=== PATIENT | female | born 1965 | race Caucasian/White ===

== ENCOUNTER → 2019-04-10 15:50 | Outpatient (BNVA) | payer MEDICAID, SELFPAY | PROVIDERS: Family Provider Family Medicine; PCP Family Medicine; Visit Provider Psychiatry & Neurology Psychiatry | DX: F60.3 Borderline personality disorder (principal); F43.12 Post-traumatic stress disorder, chronic; F33.2 Major depressive disorder, recurrent severe without psychotic features | CPT/HCPCS: 99213 ==

== ENCOUNTER → 2019-05-10 14:49 | Outpatient (BNVA) | payer MEDICAID, SELFPAY | PROVIDERS: Family Provider Family Medicine; PCP Family Medicine; Visit Provider Social Worker | DX: F33.2 Major depressive disorder, recurrent severe without psychotic features (principal); F43.12 Post-traumatic stress disorder, chronic; F60.3 Borderline personality disorder | CPT/HCPCS: 90834 ==

== ENCOUNTER → 2019-05-24 15:43 | Outpatient (BNVA) | payer MEDICAID, SELFPAY | PROVIDERS: Family Provider Family Medicine; PCP Family Medicine; Visit Provider Social Worker | DX: F33.2 Major depressive disorder, recurrent severe without psychotic features (principal); F43.12 Post-traumatic stress disorder, chronic; F60.3 Borderline personality disorder | CPT/HCPCS: 90834 ==

== ENCOUNTER → 2019-05-31 14:42 | Outpatient (BNVA) | payer MEDICAID, SELFPAY | PROVIDERS: Family Provider Family Medicine; PCP Family Medicine; Visit Provider Social Worker | DX: F33.2 Major depressive disorder, recurrent severe without psychotic features (principal); F43.12 Post-traumatic stress disorder, chronic; F60.3 Borderline personality disorder | CPT/HCPCS: 90834 ==

== ENCOUNTER → 2019-07-02 15:25 | Outpatient (BNVA) | payer MEDICAID, SELFPAY | PROVIDERS: Family Provider Family Medicine; PCP Family Medicine; Visit Provider Social Worker | DX: F33.2 Major depressive disorder, recurrent severe without psychotic features (principal); F60.3 Borderline personality disorder; F43.12 Post-traumatic stress disorder, chronic | CPT/HCPCS: 90834 ==

== ENCOUNTER → 2019-07-03 16:04 | Outpatient (BNVA) | payer MEDICAID, SELFPAY | PROVIDERS: Family Provider Family Medicine; PCP Family Medicine; Visit Provider Psychiatry & Neurology Psychiatry | DX: F43.12 Post-traumatic stress disorder, chronic (principal); F60.3 Borderline personality disorder; F33.2 Major depressive disorder, recurrent severe without psychotic features | CPT/HCPCS: 99213 ==

== ENCOUNTER 2019-07-11 07:48 | Emergency (ER) | payer MEDICAID, SELFPAY ==
[2019-07-11 07:56] VITALS: BP 119/80; PULSE 67; RESP 16; TEMP 36.9; O2SAT 97; BMI 31.7
[2019-07-11 07:58] VITALS: BP 131/83; PULSE 69
--- NOTE | 2019-07-11 07:59 | ED_ITS ---
Documented by User: MAI Becerra 07/11/19 11:44 HPI - General Adult General: Chief complaint: General Medical Stated complaint: LOW BLOOD PRESSURE Time Seen by Provider: 07/11/19 07:58 History of Present Illness: HPI narrative: Patient is a 53-year-old female who comes to the ED with low blood pressure. Patient states that yesterday she started feeling a little lightheaded and generalized weakness. She checked her blood pressure and her first reading was 98/50. She checked it again a little bit later and she said it dropped down to 88/50. Patient says she was having some chest pain as well. Chest pain started while patient was up sweeping the floor. She said the chest pain went away after she sat down. Today patient woke up and felt little weak but did not check her blood pressure at home. She described feeling like she was going to pass out . When she sat down the symptoms did not improve. She decided to come to the ED to get evaluated because in the past when she has had some of the symptoms was related to having low potassium. She has not had any chest pain today. Denies any fever, shortness of breath, chest pain, abdominal pain, nausea, vomiting, diarrhea, dysuria, hematuria, blood in the stool Associated symptoms: Reports chest pain (yesterday); Deny dyspnea, headache(s), nausea, rash, palpitations or vomiting Review of Systems Const: Reports: fatigue (generalized weakness); Denies: fever or chills Eyes: Denies: change in vision or eye discomfort ENMT: Denies: throat pain, painful swallowing, nasal discharge or nasal congestion Card: Reports: chest pain (yesterday), lightheadedness and pre-syncope; Denies: palpitations, edema, swelling of feet/ankles, shortness of breath on exertion or shortness of breath when lying down Resp: Denies: shortness of breath, productive cough or non-productive cough GI: Denies: abdominal pain, nausea, vomiting, diarrhea, constipation or blood in stool : Denies: flank pain, painful urination or blood in urine Musc: Reports: back pain (chronic issue-she sees pain management.); Denies: neck pain or extremity swelling Skin/Breast: Denies: rash or new lesion Neuro: Denies: headache, numbness in extremities or weakness in extremities PFSH ED PFSH: Medical History Sleep apnea with use of continuous positive airway pressure (CPAP) Surgical History History of appendectomy Tubal ligation status Social History Smoking and tobacco status: never smoked Second hand smoke exposure: No Alcohol intake: never Physical Exam Const: COMMON NORMALS: no apparent distress, oriented x3 and alert GENERAL APPEARANCE: cooperative, comfortable and well kempt HENMT: COMMON NORMALS: normocephalic HEAD & SCALP: normocephalic MOUTH: oral and palatal mucosa normal THROAT: posterior oropharynx normal and uvula midline Eye: COMMON NORMALS: PERRL GENERAL EYE: normal appearance of both eyes PUPIL: Yes PERRL Neck/C-Spine: COMMON NORMALS: supple GENERAL: Yes normal visual inspection Lymph: LYMPHATIC: no lymphadenopathy noted (no cervical lymphadenopathy palpated.) Resp: COMMON NORMALS: normal respiratory effort, no retractions, no use of accessory muscles and clear to auscultation bilaterally EFFORT & INSPECTION: Yes able to speak in complete sentences, No respiratory distress and No labored AUSCULTATION: clear to auscultation bilaterally Cardio: COMMON NORMALS: regular rate, regular rhythm, S1 normal heart sound, S2 normal heart sound, no gallops, no clicks, no murmurs and peripheral pulses 2+ throughout RATE: regular rate RHYTHM: regular rhythm HEART SOUNDS: S1 normal and S2 normal PERIPHERAL PULSES: pulses 2+ throughout GI: COMMON NORMALS: normal to inspection, nondistended, normoactive bowel sounds, soft to palpation, non-tender and no masses PALPATION: Yes soft : COMMON NORMALS: Yes no CVA tenderness BLADDER/KIDNEY EXAM: Yes no CVA tenderness Back/Pelvis: COMMON NORMALS: no CVA tenderness Extremity: COMMON NORMALS: normal to inspection Neuro: COMMON NORMALS: oriented x3 and moves all extremities SENSORIUM/ORIENTATION: Yes alert Psych: APPEARANCE: Yes well kempt Skin: COMMON NORMALS: no rashes or lesions noted GENERAL SKIN EXAM: no rashes or lesions noted and dry skin Course ED course: HEART Score-2 Reevaluation(s): Reevaluation #1: I went to check on patient and to update her on lab results. Patient told me she had a headache but I told her that I could give her some Toradol to help with headache. She agreed and would like some Toradol for her headache. Time: 09:13 Vital Signs: Vital signs: Vital Signs Temperature 98.4 F 07/11/19 07:56 Pulse Rate 61 07/11/19 10:56 Respiratory Rate 16 07/11/19 10:56 Blood Pressure 131/84 07/11/19 10:56 Pulse Oximetry 99 07/11/19 10:56 MDM - General Adult MDM Narrative: Medical decision making narrative: Patient is a 53-year-old female who comes into the ED with low blood pressure, weakness and chest pain. Symptoms started yesterday. Chest pain started yesterday while she was being active sweeping her house but resolved when she sat down. She has not had any chest pain since yesterday. Patient talked to her PCP yesterday and told her to start taking half of her dose of spironolactone daily. She took a half dose of her spironolactone today. While here in the ED her blood pressure was 119/80 pulse 67. EKG showed normal sinus rhythm and troponins were negative. Heart score- 2. CBC and CMP were normal. Patient was given IV fluids and Toradol for headache while here in the ED. Her blood pressure increased after IV fluids to 131/84 pulse 61. Patient was discharged and told to follow-up with her PCP in 5 to 7 days. She was told to continue taking the half dose of spironolactone as ordered by her PCP. I told her she can return to the ED if she has any worsening symptoms or any chest pain. Patient agreed with and understood plan. Lab Data: Attestation: I reviewed the patient's lab results. Labs: Lab Results 07/11/19 07/11/19 07/11/19 Range/Units 08:10 08:10 08:10 WBC 5.9 (4.0-10.0) 10^3/ uL RBC 4.51 (4.1-5.3) 10^6/u L Hgb 13.2 (11.5-15.3) g/dL Hct 41.1 (37.0-47.0) % MCV 91.1 (81-99) fL MCH 29.3 (28.0-34.0) pg MCHC 32.1 (30.0-36.0) g/dL RDW 12.8 (12.1-15.1) % Plt Count 298 (130-400) 10^3/c mm MPV 9.6 (7.4-10.4) fL Neut % (Auto) 40.9 % Lymph % (Auto) 40.9 % Weld % (Auto) 7.3 % Eos % (Auto) 9.7 % Baso % (Auto) 1.0 % Neut # (Auto) 2.4 (1.8-7.7) 10^3/u L Lymph # (Auto) 2.4 (0.8-4.8) 10^3/u L Weld # (Auto) 0.4 (0.2-0.9) 10^3/u L Eos # (Auto) 0.6 (0.0-0.8) 10^3/u L Baso # (Auto) 0.1 (0.0-0.1) 10^3/u L Nucleated RBC % (a uto) 0 % Nucleated RBCs # 0.0 /100WBC Sodium 139 (136-145) mmol/L Potassium 3.7 (3.5-5.1) mmol/L Chloride 104 (98-107) mmol/L Carbon Dioxide 24 (22-29) mmol/L Anion Gap 14.7 (5-19) BUN 15 (6-20) mg/dL Creatinine 0.9 (0.5-0.9) mg/dL GFR Calculation 65.8 L (90-130) mL/min Glucose 90 (65-115) mg/dL Calculated Osmolal ity 284 L (285-295) mOsm/k g Calcium 9.9 (8.5-10.5) mg/dL Total Bilirubin 0.4 (0.15-1.2) mg/dL AST 14 (0-32) U/L ALT 13 (0-33) U/L Alkaline Phosphata se 117 H (35-105) IU/L Troponin T Baselin e 8 (0-10) ng/mL Total Protein 7.0 (6.6-8.7) g/dL Albumin 4.2 (3.5-5.2) g/dL Globulin 2.8 (1.3-4.6) g/dL Imaging Data^: CXR: Attestation: I personally reviewed and interpreted this imaging study as follows: Radiologist's impression: [address] [address] XRay Report Signed Patient: Gold Johnson Unit #: [id number] : 1965 Age/Sex: 53 / F ADM Date: 07/11/19 Loc: ER Room/Bed: Attending Dr: Ordering Provider/Ordering MD: Reese Hernandez Date of Service: 07/11/19 Procedure(s): XR chest 1V portable [id number] Accession Number(s): [id number] Report Number: [id number] WS: [id number] CHEST XRAY TECHNIQUE: Portable chest. CLINICAL INFORMATION: cp and weakness COMPARISON: October 03, 2018 FINDINGS: Shallow inspiration. Heart: Normal cardiac silhouette. Lungs: Elevation right hemidiaphragm. Subsegmental atelectasis right lung base. Left lung is well aerated. No acute-appearing pulmonary infiltrates. Bones: Hypertrophic changes thoracic spine. XR/XR chest 1V portable [id number] IMPRESSION: Elevation hemidiaphragm with subsegmental atelectasis right lung base is unchanged. Dictated By: Ford Apodaca MD Signed By: Ford Apodaca MD Signed Date/Time: 07/11/19848 DD/ 0848 EKG Data^: EKG 1: Attestation: I personally reviewed and interpreted this EKG as follows: EKG interpretation date: 07/11/19 EKG interpretation time: 08:44 Interpretation: Normal sinus rhythm, 62 bpm, P waves present, no ST segment elevation or depression seen. Computer generated interpretation: Chest X-Ray 07/11/19 08:23 IMPRESSION: Elevation hemidiaphragm with subsegmental atelectasis right lung base is unchanged. Discharge Plan Discharge Patient Disposition: Home, Self-Care Clinical Impression: Low blood pressure, not hypotension Condition: Stable Prescriptions: No Action fluoxetine 40 mg capsule 80 mg PO DAILY Qty: 60 RF: 2 albuterol sulfate 90 mcg/actuation aerosol powdr breath activated 2 inh INHALATION Q4H PRN (Reason: Shortness Of Breath) RF: 0 atorvastatin [Lipitor] 20 mg tablet 20 mg PO DAILY RF: 0 fluticasone propionate [Flonase Allergy Relief] 50 mcg/actuation spray,suspension 1 spray INTRANASAL BID PRN (Reason: UNKNOWN) RF: 0 hydrocodone-acetaminophen [Tolono] 10-325 mg tablet 1 tab PO Q8H PRN (Reason: Pain) RF: 0 celecoxib [Celebrex] 50 mg capsule 100 mg PO BID RF: 0 zonisamide 100 mg capsule 400 mg PO BEDTIME RF: 0 Vitamin B-12 1,000 mcg Tablet 1,000 mcg PO DAILY RF: 0 Protonix 20 mg Tablet,Delayed Release (Dr/Ec) 20 mg PO BID RF: 0 oxybutynin chloride 5 mg tablet 10 mg PO BID RF: 0 spironolactone 50 mg Tablet 25 mg PO DAILY RF: 0 Butrans 10 mcg/hour patch weekly 10 mcg topical Q7D RF: 0 trazodone 100 mg tablet 100 mg PO BEDTIME RF: 0 Discharge Orders: Discharge Order (Routine); Ordered 07/11/19 Ordered By: Reese Hernandez Referrals: Mckenzie Phillips MD [Primary Care Provider] - Discharge Diet: Regular Discharge Activity: Resume usual activity and Increase activity as tolerated Activity Restrictions/Additional Instructions: Follow-up with your PCP in 5 to 7 days for reevaluation. Continue taking your home medications as prescribed and discussed with your PCP. Drink plenty of fluids and stay hydrated. Return to the ED for reevaluation if you are having any worsening symptoms. Discharge Date/Time: 07/11/19 10:57 Coding Level of Care Code ED [employer] Senior Sergeant for Chg Fwd Exam Comprehensive Documented by User: Terence Biggs DO 07/11/19 17:32 HPI - General Adult General: Chief complaint: General Medical Stated complaint: LOW BLOOD PRESSURE Time Seen by Provider: 07/11/19 07:58 PFS ED PFSH: Medical History Sleep apnea with use of continuous positive airway pressure (CPAP) Surgical History History of appendectomy Tubal ligation status Social History Smoking and tobacco status: never smoked Second hand smoke exposure: No Alcohol intake: never Course Vital Signs: Vital signs: Vital Signs Temperature 98.4 F 07/11/19 07:56 Pulse Rate 61 07/11/19 10:56 Respiratory Rate 16 07/11/19 10:56 Blood Pressure 131/84 07/11/19 10:56 Pulse Oximetry 99 07/11/19 10:56 MDM - General Adult MDM Narrative: Medical decision making narrative: Reviewed case with MAI Becerra agree with assessment and plan Lab Data: Labs: Lab Results 07/11/19 07/11/19 07/11/19 Range/Units 08:10 08:10 08:10 WBC 5.9 (4.0-10.0) 10^3/ uL RBC 4.51 (4.1-5.3) 10^6/u L Hgb 13.2 (11.5-15.3) g/dL Hct 41.1 (37.0-47.0) % MCV 91.1 (81-99) fL MCH 29.3 (28.0-34.0) pg MCHC 32.1 (30.0-36.0) g/dL RDW 12.8 (12.1-15.1) % Plt Count 298 (130-400) 10^3/c mm MPV 9.6 (7.4-10.4) fL Neut % (Auto) 40.9 % Lymph % (Auto) 40.9 % Weld % (Auto) 7.3 % Eos % (Auto) 9.7 % Baso % (Auto) 1.0 % Neut # (Auto) 2.4 (1.8-7.7) 10^3/u L Lymph # (Auto) 2.4 (0.8-4.8) 10^3/u L Weld # (Auto) 0.4 (0.2-0.9) 10^3/u L Eos # (Auto) 0.6 (0.0-0.8) 10^3/u L Baso # (Auto) 0.1 (0.0-0.1) 10^3/u L Nucleated RBC % (a uto) 0 % Nucleated RBCs # 0.0 /100WBC Sodium 139 (136-145) mmol/L Potassium 3.7 (3.5-5.1) mmol/L Chloride 104 (98-107) mmol/L Carbon Dioxide 24 (22-29) mmol/L Anion Gap 14.7 (5-19) BUN 15 (6-20) mg/dL Creatinine 0.9 (0.5-0.9) mg/dL GFR Calculation 65.8 L (90-130) mL/min Glucose 90 (65-115) mg/dL Calculated Osmolal ity 284 L (285-295) mOsm/k g Calcium 9.9 (8.5-10.5) mg/dL Total Bilirubin 0.4 (0.15-1.2) mg/dL AST 14 (0-32) U/L ALT 13 (0-33) U/L Alkaline Phosphata se 117 H (35-105) IU/L Troponin T Baselin e 8 (0-10) ng/mL Total Protein 7.0 (6.6-8.7) g/dL Albumin 4.2 (3.5-5.2) g/dL Globulin 2.8 (1.3-4.6) g/dL EKG Data^: EKG 1: Computer generated interpretation: Chest X-Ray 07/11/19 08:23 IMPRESSION: Elevation hemidiaphragm with subsegmental atelectasis right lung base is unchanged. Discharge Plan Discharge Patient Disposition: Home, Self-Care Clinical Impression: Low blood pressure, not hypotension Condition: Stable Prescriptions: No Action fluoxetine 40 mg capsule 80 mg PO DAILY Qty: 60 RF: 2 albuterol sulfate 90 mcg/actuation aerosol powdr breath activated 2 inh INHALATION Q4H PRN (Reason: Shortness Of Breath) RF: 0 atorvastatin [Lipitor] 20 mg tablet 20 mg PO DAILY RF: 0 fluticasone propionate [Flonase Allergy Relief] 50 mcg/actuation spray,suspension 1 spray INTRANASAL BID PRN (Reason: UNKNOWN) RF: 0 hydrocodone-acetaminophen [[place]] 10-325 mg tablet 1 tab PO Q8H PRN (Reason: Pain) RF: 0 celecoxib [Celebrex] 50 mg capsule 100 mg PO BID RF: 0 zonisamide 100 mg capsule 400 mg PO BEDTIME RF: 0 Vitamin B-12 1,000 mcg Tablet 1,000 mcg PO DAILY RF: 0 Protonix 20 mg Tablet,Delayed Release (Dr/Ec) 20 mg PO BID RF: 0 oxybutynin chloride 5 mg tablet 10 mg PO BID RF: 0 spironolactone 50 mg Tablet 25 mg PO DAILY RF: 0 Butrans 10 mcg/hour patch weekly 10 mcg topical Q7D RF: 0 trazodone 100 mg tablet 100 mg PO BEDTIME RF: 0 Discharge Orders: Discharge Order (Routine); Ordered 07/11/19 Ordered By: Reese Hernandez Referrals: Mckenzie Phillips MD [Primary Care Provider] - Discharge Diet: Regular Discharge Activity: Resume usual activity and Increase activity as tolerated Activity Restrictions/Additional Instructions: Follow-up with your PCP in 5 to 7 days for reevaluation. Continue taking your home medications as prescribed and discussed with your PCP. Drink plenty of fluids and stay hydrated. Return to the ED for reevaluation if you are having any worsening symptoms. Discharge Date/Time: 07/11/19 10:57 Coding Level of Care Code ED [employer] Senior Sergeant for Kwasi Fwd Exam Comprehensive
[2019-07-11 08:00] VITALS: BP 105/77; PULSE 81
[2019-07-11 08:08] VITALS: BP 103/74; PULSE 66
--- NOTE | 2019-07-11 08:23 | XR_ITS ---
WS: [id number] CHEST XRAY TECHNIQUE: Portable chest. CLINICAL INFORMATION: cp and weakness COMPARISON: October 03, 2018 FINDINGS: Shallow inspiration. Heart: Normal cardiac silhouette. Lungs: Elevation right hemidiaphragm. Subsegmental atelectasis right lung base. Left lung is well aer ated. No acute-appearing pulmonary infiltrates. Bones: Hypertrophic changes thoracic spine. XR/XR chest 1V portable [id number] IMPRESSION: Elevation hemidiaphragm with subsegmental atelectasis right lung base is unchan ged.
[2019-07-11] MEDS: sodium chloride 0.9% 1,000 ML 999 ML IV (08:33)
[2019-07-11 08:34] LABS: Basophils # 0.1 10^3/uL (0.0-0.1); Eosinophils # 0.6 10^3/uL (0.0-0.8); Eosinophils % 9.7 %; Hematocrit 41.1 % (37.0-47.0); Hemoglobin 13.2 g/dL (11.5-15.3); Lymphocytes # 2.4 10^3/uL (0.8-4.8); Lymphocytes % 40.9 %; Mean Corpuscular HGB Conc 32.1 g/dL (30.0-36.0); Mean Corpuscular Hemoglobin 29.3 pg (28.0-34.0); Mean Corpuscular Volume 91.1 fL (81-99); Mean Platelet Volume 9.6 fL (7.4-10.4); Monocytes # 0.4 10^3/uL (0.2-0.9); Monocytes % 7.3 %; Neutrophils # 2.4 10^3/uL (1.8-7.7); Neutrophils % 40.9 %; Nucleated Red Blood Cells % 0 %; Platelet Count 298 10^3/cmm (130-400); Red Blood Count 4.51 10^6/uL (4.1-5.3); Red Cell Distribution Width 12.8 % (12.1-15.1); White Blood Count 5.9 10^3/uL (4.0-10.0)
[2019-07-11 08:58] LABS: Alanine Aminotransferase 13 U/L (0-33); Albumin Level 4.2 g/dL (3.5-5.2); Alkaline Phosphatase 117 IU/L (35-105); Anion Gap 14.7 (5-19); Aspartate Amino Transferase 14 U/L (0-32); Blood Urea Nitrogen 15 mg/dL (6-20); Calcium 9.9 mg/dL (8.5-10.5); Carbon Dioxide 24 mmol/L (22-29); Chloride 104 mmol/L (98-107); Globulin 2.8 g/dL (1.3-4.6); Glomerular Filtration Rate 65.8 mL/min (90-130); Glucose 90 mg/dL (65-115); Osmolality Calculated 284 mOsm/kg (285-295); Potassium 3.7 mmol/L (3.5-5.1); Sodium 139 mmol/L (136-145); Total Bilirubin 0.4 mg/dL (0.15-1.2)
[2019-07-11 09:00] LABS: Troponin(5th) Baseline 8 ng/mL (0-10)
[2019-07-11] MEDS: ketorolac 30 mg/mL INJ IVP (09:23)
--- NOTE | 2019-07-11 10:19 | PC.NURSE ---
Patient ambulated to and from restroom with steady gait at this time.
[2019-07-11 10:56] VITALS: BP 131/84; PULSE 61; RESP 16; O2SAT 99
--- NOTE | 2019-07-11 14:15 | ECG_ITS ---
Measurements Intervals [place] Rate: 62 P: 5 NC: 195 QRS: 0 QRSD: 108 T: 18 QT: 401 QTc: 409 SINUS RHYTHM Compared to ECG 10/03/2018 12:25:11 Incomplete right bundle-branch block no longer present Electronically Signed On 07-11-2019 18:11:14 CDT by Torres Fofana M.D. [email or web address]
== END 2019-07-11 10:57 | disposition home or self-care (01) ==
PROVIDERS: Emergency Provider Physician Assistant; Family Provider Family Medicine; PCP Family Medicine
DX: R03.1 Nonspecific low blood-pressure reading (principal); J98.11 Atelectasis; G47.33 Obstructive sleep apnea (adult) (pediatric); F43.12 Post-traumatic stress disorder, chronic; F60.3 Borderline personality disorder; F33.2 Major depressive disorder, recurrent severe without psychotic features
CPT/HCPCS: 12345; 36415; 71045; 80053; 84484; 85025; 93005; 96361; 96374; 99282; 99283; J1885; J7030

== ENCOUNTER → 2019-07-16 16:15 | Outpatient (BNVA) | payer MEDICAID, SELFPAY | PROVIDERS: Family Provider Family Medicine; PCP Family Medicine; Visit Provider Social Worker | DX: F33.2 Major depressive disorder, recurrent severe without psychotic features (principal); F60.3 Borderline personality disorder; F43.12 Post-traumatic stress disorder, chronic | CPT/HCPCS: 90834 ==

== ENCOUNTER → 2019-08-02 08:23 | Outpatient (BNVA) | payer MEDICAID, SELFPAY | PROVIDERS: Family Provider Family Medicine; PCP Family Medicine; Visit Provider Social Worker | DX: F33.2 Major depressive disorder, recurrent severe without psychotic features (principal); F60.3 Borderline personality disorder; F43.12 Post-traumatic stress disorder, chronic | CPT/HCPCS: 90834 ==

== ENCOUNTER → 2019-09-10 08:54 | Outpatient (BNVA) | payer MEDICAID, SELFPAY | PROVIDERS: Family Provider Family Medicine; PCP Family Medicine; Visit Provider Social Worker | DX: F43.12 Post-traumatic stress disorder, chronic (principal); F60.3 Borderline personality disorder; F33.2 Major depressive disorder, recurrent severe without psychotic features | CPT/HCPCS: 90832 ==

== ENCOUNTER → 2019-09-18 11:07 | Outpatient (BNVA) | payer MEDICAID, SELFPAY | PROVIDERS: Family Provider Family Medicine; PCP Family Medicine; Visit Provider Urology | DX: N39.41 Urge incontinence (principal); K59.09 Other constipation | CPT/HCPCS: 80053; 81001 ==

== ENCOUNTER 2019-09-19 13:17 | Emergency (ER) | payer MEDICAID, SELFPAY ==
[2019-09-19 13:56] VITALS: BMI 33.5
[2019-09-19 14:00] VITALS: BP 126/78; PULSE 63; RESP 18; TEMP 36.6; O2SAT 94
--- NOTE | 2019-09-19 14:08 | ECG_ITS ---
[facility] ED Test Date: 2019-09-19 Pat Name: Gold Johnson Department: Room: Gender: Female Data Security Analyst: : 1965 Requested By: Tristan Hall Order Number: [id number] Reading MD: Torres Fofana M.D. Measurements Intervals [place] Rate: 61 P: 20 CA: 175 QRS: 21 QRSD: 102 T: 41 QT: 412 QTc: 418 Interpretive Statements SINUS RHYTHM Poor R wave progression LOW QRS VOLTAGE IN PRECORDIAL LEADS [QRS DEFLECTION < 1.0 mV IN CHEST LEADS] Compared to ECG 07/11/2019 08:42:11 Low QRS voltage now present Electronically Signed On 09-19-2019 19:22:30 CDT by Torres Fofana M.D. [id number]
--- NOTE | 2019-09-19 14:08 | XR_ITS ---
WS: [id number] XR KUB portable [id number] REASON FOR EXAM: constipation FINDINGS: KUB of abdomen shows fecal stasis throughout the colon particularly in the left side and re ctosigmoid junction. There is no air-fluid levels or free air in the abdomen. There is degenerate changes throughout the lumbar spine. XR/XR KUB portable [id number] IMPRESSION: Marked fecal stasis.
--- NOTE | 2019-09-19 14:08 | XR_ITS ---
WS: [id number] XR chest 1V portable [id number] REASON FOR EXAM: dizzy FINDINGS: Elevation of the right hemidiaphragm similar to previous exam of July 11, 2019. The left lung is normally aerated there is decreased volume of the right lung. The heart mediastinum were normal. There is no evidence of pneumonia, congestive heart failure, pleural effusion,. There is ankylosing degenerate changes throughout the thoracic spine. XR/XR chest 1V portable [id number] IMPRESSION: Eventration of the right hemidiaphragm.
--- NOTE | 2019-09-19 14:09 | ED_ITS ---
HPI - Dizziness General: Chief Complaint: Dizziness Stated Complaint: poss dehydration, constipation Time Seen by Provider: 09/19/19 13:55 History of Present Illness: HPI Narrative: Patient complains that she is constipated and possibly dehydrated. Has some dizziness yesterday does not have any longer. Has a history of constipation problems. Only went to the bathroom with a bowel movement once last week. Feels like she is bloated. MD elicited complaint: other (Constipation) Associated symptoms: Denies chest pain, chills, headache(s), nausea, nasal congestion or vomiting Review of Systems Const: Denies: fever(s), chills or body aches Eyes: Denies: change in vision or blurry vision ENMT: Denies: throat pain or nasal congestion Card: Denies: chest pain or dyspnea on exertion Resp: Denies: dyspnea, productive cough or non-productive cough GI: Reports: other (Constipation); Denies: abdominal pain, nausea or vomiting Musc: Denies: extremity pain Skin/Breast: Denies: rash Neuro: Denies: headache(s) Psych: Denies: anxiety or depression Saeed/Lymph: Denies: easy bruising PFSH ED PFSH: Medical History Chronic constipation Sleep apnea with use of continuous positive airway pressure (CPAP) Urgency incontinence Surgical History History of appendectomy Tubal ligation status Family History Brother Diabetes Other Cancer Social History Smoking and tobacco status: never smoked Second hand smoke exposure: No Alcohol intake: never Adopted: No Caregiver/support person: No Lives independently: No Marital status: Current occupational status: employed History of recent travel: No Current gender identity: Female Physical Exam Const: COMMON NORMALS: no acute distress, average body habitus and patient oriented x3 HENMT: COMMON NORMALS: normocephalic HEAD & SCALP: normal to inspection and normocephalic FACE & SINUS: normal facial exam Eye: COMMON NORMALS: conjunctivae normal GENERAL EYE: appearance normal, both eyes and all related structures CONJUNCTIVA: Yes conjunctivae normal Neck/C-Spine: COMMON NORMALS: no JVD Chest: COMMONS NORMALS: normal inspection of the chest Resp: COMMON NORMALS: normal respiratory effort and clear to auscultation bilaterally AUSCULTATION: clear to auscultation bilaterally Cardio: COMMON NORMALS: no JVD, regular rate and regular rhythm RATE: regular rate RHYTHM: regular rhythm GI: COMMON NORMALS: Normal to inspection, nondistended, normoactive bowel sounds present Extremity: COMMON NORMALS: normal to inspection and full ROM Neuro: COMMON NORMALS: patient oriented x3 Course Vital Signs: Vital signs: Vital Signs Temperature 97.8 F 09/19/19 14:00 Pulse Rate 63 09/19/19 14:00 Respiratory Rate 18 09/19/19 14:00 Blood Pressure 126/78 09/19/19 14:00 Pulse Oximetry 94 09/19/19 14:00 Discharge Plan Discharge Prescriptions: No Action fluoxetine 40 mg capsule 80 mg PO DAILY Qty: 60 RF: 2 sumatriptan succinate [Imitrex] 100 mg tablet 100 mg PO Q2H PRNRF: 0 oxcarbazepine 150 mg tablet 150 mg PO DAILY RF: 0 albuterol sulfate 90 mcg/actuation aerosol powdr breath activated 2 inh INHALATION Q4H PRN (Reason: Shortness Of Breath) RF: 0 atorvastatin [Lipitor] 20 mg tablet 20 mg PO DAILY RF: 0 fluticasone propionate [Flonase Allergy Relief] 50 mcg/actuation spray,suspension 1 spray INTRANASAL BID PRN (Reason: UNKNOWN) RF: 0 hydrocodone-acetaminophen [[place]] 10-325 mg tablet 1 tab PO Q8H PRN (Reason: Pain) RF: 0 celecoxib [Celebrex] 50 mg capsule 100 mg PO BID RF: 0 zonisamide 100 mg capsule 400 mg PO BEDTIME RF: 0 Vitamin B-12 1,000 mcg Tablet 1,000 mcg PO DAILY RF: 0 Protonix 20 mg Tablet,Delayed Release (Dr/Ec) 20 mg PO BID RF: 0 oxybutynin chloride 5 mg tablet 10 mg PO BID RF: 0 spironolactone 50 mg Tablet 25 mg PO DAILY RF: 0 Butrans 10 mcg/hour patch weekly 10 mcg topical Q7D RF: 0 trazodone 100 mg tablet 100 mg PO BEDTIME RF: 0 Coding Level of Care Code ED Lining Machine Tender for Chg Fwbrigitte
[2019-09-19 14:39] VITALS: BP 126/78; PULSE 68; RESP 14; O2SAT 95
[2019-09-19] MEDS: sodium chloride 0.9% 1,000 ML 999 ML IV (14:39)
[2019-09-19 14:43] LABS: Basophils % 0.4 %; Eosinophils # 0.3 10^3/uL (0.0-0.8); Eosinophils % 4.3 %; Hematocrit 40.2 % (37.0-47.0); Hemoglobin 13.2 g/dL (11.5-15.3); Lymphocytes # 1.7 10^3/uL (0.8-4.8); Mean Corpuscular HGB Conc 32.8 g/dL (30.0-36.0); Mean Corpuscular Hemoglobin 29.5 pg (28.0-34.0); Mean Corpuscular Volume 89.7 fL (81-99); Mean Platelet Volume 9.1 fL (7.4-10.4); Monocytes # 0.4 10^3/uL (0.2-0.9); Monocytes % 5.5 %; Neutrophils # 4.9 10^3/uL (1.8-7.7); Neutrophils % 66.5 %; Nucleated Red Blood Cells % 0 %; Platelet Count 355 10^3/cmm (130-400); Red Blood Count 4.48 10^6/uL (4.1-5.3); Red Cell Distribution Width 12.7 % (12.1-15.1); White Blood Count 7.4 10^3/uL (4.0-10.0)
[2019-09-19 14:57] LABS: Alanine Aminotransferase 24 U/L (0-33); Albumin Level 4.5 g/dL (3.5-5.2); Alkaline Phosphatase 104 IU/L (35-105); Anion Gap 16.1 (5-19); Aspartate Amino Transferase 20 U/L (0-32); Blood Urea Nitrogen 12 mg/dL (6-20); Calcium 9.4 mg/dL (8.5-10.5); Carbon Dioxide 23 mmol/L (22-29); Chloride 103 mmol/L (98-107); Globulin 3.1 g/dL (1.3-4.6); Glomerular Filtration Rate 52.2 mL/min (90-130); Glucose 99 mg/dL (65-115); Osmolality Calculated 282 mOsm/kg (285-295); Potassium 4.1 mmol/L (3.5-5.1); Sodium 138 mmol/L (136-145); Total Bilirubin 0.3 mg/dL (0.15-1.2); Total Protein 7.6 g/dL (6.6-8.7)
[2019-09-19 15:56] VITALS: BP 103/60; PULSE 60; RESP 14; O2SAT 95
== END 2019-09-19 16:11 | disposition home or self-care (01) ==
PROVIDERS: Emergency Provider Nurse Practitioner Family; PCP Family Medicine
DX: R42 Dizziness and giddiness (principal); K59.00 Constipation, unspecified
CPT/HCPCS: 12345; 36415; 71045; 74018; 80053; 85025; 93005; 96360; 99283; J7030

== ENCOUNTER → 2019-09-25 07:51 | Outpatient (BNVA) | payer MEDICAID, SELFPAY | PROVIDERS: PCP Family Medicine; Visit Provider Psychiatry & Neurology Psychiatry | DX: F60.3 Borderline personality disorder (principal); F43.12 Post-traumatic stress disorder, chronic; F33.2 Major depressive disorder, recurrent severe without psychotic features | CPT/HCPCS: 99213 ==

== ENCOUNTER 2019-10-11 10:03 | Outpatient (CLI) | payer MEDICAID, SELFPAY ==
[2019-10-11 10:23] VITALS: BP 135/87; PULSE 64; RESP 18; TEMP 36.4; O2SAT 98; BMI 33.3
[2019-10-11] MEDS: lactated ringers 1,000 ML 250 ML IV (10:40)
[2019-10-11 10:52] LABS: Basophils % 0.5 %; Eosinophils # 0.3 10^3/uL (0.0-0.8); Eosinophils % 5.4 %; Hematocrit 43.9 % (37.0-47.0); Hemoglobin 14.1 g/dL (11.5-15.3); Lymphocytes # 1.4 10^3/uL (0.8-4.8); Lymphocytes % 23.1 %; Mean Corpuscular HGB Conc 32.1 g/dL (30.0-36.0); Mean Corpuscular Hemoglobin 29.3 pg (28.0-34.0); Mean Corpuscular Volume 91.3 fL (81-99); Mean Platelet Volume 9.3 fL (7.4-10.4); Monocytes # 0.4 10^3/uL (0.2-0.9); Neutrophils # 3.99 10^3/uL (1.8-7.7); Nucleated Red Blood Cells % 0 %; Platelet Count 359 10^3/cmm (130-400); Red Blood Count 4.81 10^6/uL (4.1-5.3); Red Cell Distribution Width 12.5 % (12.1-15.1); White Blood Count 6.1 10^3/uL (4.0-10.0)
[2019-10-11 11:11] LABS: Alanine Aminotransferase 37 U/L (0-33); Albumin Level 4.7 g/dL (3.5-5.2); Alkaline Phosphatase 107 IU/L (35-105); Anion Gap 15.7 (5-19); Aspartate Amino Transferase 32 U/L (0-32); Blood Urea Nitrogen 14 mg/dL (6-20); Calcium 9.9 mg/dL (8.5-10.5); Carbon Dioxide 21 mmol/L (22-29); Chloride 105 mmol/L (98-107); Globulin 2.9 g/dL (1.3-4.6); Glomerular Filtration Rate 75.3 mL/min (90-130); Glucose 88 mg/dL (65-115); Osmolality Calculated 282 mOsm/kg (285-295); Potassium 3.7 mmol/L (3.5-5.1); Sodium 138 mmol/L (136-145); Total Bilirubin 0.3 mg/dL (0.15-1.2); Total Protein 7.6 g/dL (6.6-8.7)
== END 2019-10-11 10:04 | disposition home or self-care (01) ==
LOC: GILAB 10:05
PROVIDERS: PCP Family Medicine; Visit Provider Nurse Practitioner Family
DX: E86.0 Dehydration (principal); I95.1 Orthostatic hypotension
CPT/HCPCS: 80053; 85025; 96360; 96361

== ENCOUNTER 2019-10-15 12:40 | Emergency (ER) | payer MEDICAID, SELFPAY ==
[2019-10-15 12:55] VITALS: BP 122/76; PULSE 69; RESP 18; TEMP 37; O2SAT 97; BMI 33.3
--- NOTE | 2019-10-15 13:34 | XR_ITS ---
WS: [id number] KUB, 10/15/2019 Clinical Data: kidney stone Comparison: KUB, 09/19/2019. Findings: No abnormal intraabdominal masses or calcifications are seen. There is no dilatated small bowel or ev idence of obstruction. There is a moderate amount of fecal material throughout the colon. The lumbar vertebral bodies show o steoarthritic change. XR/XR KUB [id number] Impression: Moderate amount of fecal material.
--- NOTE | 2019-10-15 13:45 | W.ED.RECABL ---
HPI - Recheck/Abnormal Lab/Rx General: Chief Complaint: Recheck/Abnormal Lab/Rx Stated Complaint: abd pain Time Seen by Provider: 10/15/19 13:17 Source: patient Mode of arrival: ambulatory Limitations: no limitations History of Present Illness: HPI narrative: 54-year-old female who has had abdominal pain over the last few days. Patient was seen at [facility] yesterday and written prescriptions for kidney stone. Patient states she try to fill them here in her insurance will not cover it as they were written in [place] and she is trying to fill [place]. States pain is slightly improved. She states she mainly wants the medications filled. Denies any vomiting or diarrhea rates her pain a 3 out of 10 currently. Review of Systems Const: Denies: fever(s), chills, body aches or change in appetite Eyes: Denies: blurry vision or eye discomfort ENMT: Denies: throat pain or dental pain Card: Denies: chest pain Resp: Denies: dyspnea GI: Reports: abdominal pain : Denies: dysuria Musc: Denies: neck pain or back pain Skin/Breast: Denies: rash Neuro: Denies: headache(s) Psych: Denies: depression Saeed/Lymph: Denies: easy bruising All/Imm: Denies: urticaria PFSH ED PFSH: Medical History Chronic constipation Sleep apnea with use of continuous positive airway pressure (CPAP) Urgency incontinence Surgical History History of appendectomy Tubal ligation status Family History Brother Diabetes Other Cancer Social History Smoking and tobacco status: never smoked Second hand smoke exposure: No Alcohol intake: never Adopted: No Caregiver/support person: No Lives independently: No Marital status: Current occupational status: employed History of recent travel: No Current gender identity: Female Physical Exam Const: COMMON NORMALS: no acute distress, patient oriented x3 and healthy appearing HENMT: COMMON NORMALS: normocephalic and atraumatic HEAD & SCALP: normocephalic and atraumatic Eye: COMMON NORMALS: Equal, round and reactive pupils present and EOMs intact bilaterally PUPIL: Yes Equal, round and reactive pupils present Neck/C-Spine: COMMON NORMALS: full ROM and supple Chest: COMMONS NORMALS: normal inspection of the chest and normal palpation of entire chest wall Resp: COMMON NORMALS: normal respiratory effort, No retractions, No use of accessory muscles and clear to auscultation bilaterally AUSCULTATION: clear to auscultation bilaterally Cardio: COMMON NORMALS: regular rate, regular rhythm and No murmurs present (Cardio) RATE: regular rate RHYTHM: regular rhythm GI: COMMON NORMALS: Normal to inspection, nondistended, normoactive bowel sounds present, Soft to palpation, non-tender and no masses PALPATION: Yes Soft to palpation Extremity: COMMON NORMALS: normal to inspection and full ROM Neuro: COMMON NORMALS: patient oriented x3, moves all extremities and no focal motor deficits Psych: COMMON NORMALS: mental status grossly normal, Normal thought process present and cooperative THOUGHT PROCESS: Normal thought process present Skin: COMMON NORMALS: no rashes or lesions noted and no wounds GENERAL SKIN EXAM: no rashes or lesions noted Course Vital Signs: Vital signs: Vital Signs Temperature 98.6 F 10/15/19 12:55 Pulse Rate 62 10/15/19 14:15 Respiratory Rate 14 10/15/19 14:15 Blood Pressure 134/86 10/15/19 14:15 Pulse Oximetry 96 10/15/19 14:15 MDM - Recheck/Abnormal Lab/Rx MDM Narrative: Medical decision making narrative: Patient presents here with kidney stone. Patient was unable to fill her medicines from [place]. Will write her new prescriptions and she is to follow-up with Dr. Cuello. Patient is to return if worsening. Lab Data: Labs: Lab Results 10/15/19 Range/Units 14:05 Urine Color Linette (Yellow) Urine Appearance Sl cloudy A (CLEAR) Urine pH 5 (5-7) Ur Specific Gravit y 1.015 (1.005-1.030) Urine Protein Neg (Negative) Urine Glucose (UA) Norm (Normal) Urine Ketones 1+ H (Negative) Urine Blood 3+ H (Negative) Urine Nitrate Negative (Negative) Urine Bilirubin Neg (NEGATIVE) Urine Urobilinogen Norm (Negative) mg/dL Ur Leukocyte Bonnie ase Negative (Negative) Amorphous Sediment Not Reportable Discharge Plan Discharge Patient Disposition: Home, Self-Care Clinical Impression: Encounter for medication refill, Kidney stone Condition: Stable Prescriptions: [place] 5-325 mg tablet 1 tab PO Q6H PRN (Reason: pain) Qty: 14 RF: 0 Keflex 500 mg capsule 500 mg PO Q6H 7 Days Qty: 28 RF: 0 ondansetron 4 mg tablet,disintegrating 4 mg PO Q6H PRN (Reason: nausea and vomiting) Qty: 14 RF: 0 Flomax 0.4 mg capsule 0.4 mg PO DAILY Qty: 4 RF: 0 No Action sumatriptan succinate [Imitrex] 100 mg tablet 100 mg PO Q2H PRN (Reason: Migraine Headache) RF: 0 albuterol sulfate 90 mcg/actuation aerosol powdr breath activated 2 inh INHALATION Q4H PRN (Reason: Shortness Of Breath) RF: 0 atorvastatin [Lipitor] 20 mg tablet 20 mg PO DAILY RF: 0 fluticasone propionate [Flonase Allergy Relief] 50 mcg/actuation spray,suspension 1 spray INTRANASAL BID PRN (Reason: UNKNOWN) RF: 0 celecoxib [Celebrex] 50 mg capsule 100 mg PO BID RF: 0 zonisamide 100 mg capsule 500 mg PO BEDTIME RF: 0 trazodone 100 mg tablet 150 mg PO BEDTIME Qty: 45 RF: 2 fluoxetine 40 mg capsule 80 mg PO DAILY Qty: 60 RF: 2 cyanocobalamin (vitamin B-12) [Vitamin B-12] 1,000 mcg Tablet 1,000 mcg PO DAILY RF: 0 pantoprazole [Protonix] 20 mg Tablet,Delayed Release (Dr/Ec) 20 mg PO BID RF: 0 oxybutynin chloride 5 mg tablet 10 mg PO BID RF: 0 spironolactone 50 mg Tablet 50 mg PO DAILY RF: 0 buprenorphine [Butrans] 10 mcg/hour patch weekly 10 mcg topical Q7D RF: 0 lactulose 10 gram/15 mL solution 15 ml PO DAILY PRN (Reason: constipation) Qty: 237 RF: 0 Discharge Orders: Discharge Order (Routine); Ordered 10/15/19 Ordered By: Elizabeth Vega Referrals: Mckenzie Phillips MD [Primary Care Provider] - Delio Cuello MD [Physician] - 1-3 days Discharge Diet: Advance as tolerated Discharge Activity: Resume usual activity Discharge Date/Time: 10/15/19 14:21 Coding Level of Care Code ED Commercial Attache for Rushg Fwd Exam Comprehensive
[2019-10-15] MEDS: HYDROcodone-acetaminophen 7.5-325 mg Tablet 1 TAB PO (14:13)
[2019-10-15 14:15] VITALS: BP 134/86; PULSE 62; RESP 14; O2SAT 96
[2019-10-15 14:17] LABS: Bilirubin Urine Neg (NEGATIVE); Blood Urine 3+ (Negative); Glucose Urine UA Norm (Normal); Ketones Urine 1+ (Negative); Nitrate Urine Negative (Negative); Protein Urine Neg (Negative); Specific Gravity, Urine 1.015 (1.005-1.030); Urine Color Amber (Yellow); Urobilinogen Urine Norm (Negative); pH Urine 5 (5-7)
[2019-10-15 14:18] LABS: Add Urine Microscopic? YES; Leukocyte Esterase Urine Negative (Negative)
[2019-10-15 14:33] LABS: Bacteria Urine 2+; Mucus Urine TRACE; RBC Urine >100 /hpf (0-2)
[2019-10-15 14:34] LABS: Add Urine Culture? Yes
--- NOTE | 2019-10-16 09:16 | DCPLANNER ---
utility division project manager had message to schedule a follow up appointment for patient with Dr. Cuello. utility division project manager called the office of Dr. Cuello, spoke with Ivette, gave clinic patients information. utility division project manager was told that patients information would be printed and reviewed. Clinic will call patient with appointment information.
--- NOTE | 2019-10-19 13:45 | DCPLANNER ---
auto fleet maintenance manager called the office of Dr. Cuello, to confirm that a follow up appointment had been scheduled for patient. auto fleet maintenance manager spoke with Ivette, manager of case was told that after patients information was reviewed that patient is to follow up with primary care. Clinic called patient and informed patient of this.
== END 2019-10-15 14:21 | disposition home or self-care (01) ==
PROVIDERS: Emergency Provider Emergency Medicine; PCP Family Medicine
DX: N20.0 Calculus of kidney (principal); Z76.0 Encounter for issue of repeat prescription
CPT/HCPCS: 12345; 74018; 81001; 81003; 87086; 99282; 99283

== ENCOUNTER 2019-10-29 16:25 | Emergency (ER) | payer MEDICAID, SELFPAY ==
[2019-10-29 16:34] VITALS: BP 136/79; PULSE 68; RESP 18; TEMP 36.9; O2SAT 97; BMI 32.5
[2019-10-29 18:50] LABS: Basophils % 0.4 %; Eosinophils # 0.5 10^3/uL (0.0-0.8); Eosinophils % 5.5 %; Hematocrit 41.6 % (37.0-47.0); Lymphocytes # 1.7 10^3/uL (0.8-4.8); Lymphocytes % 20.2 %; Mean Corpuscular HGB Conc 31.3 g/dL (30.0-36.0); Mean Corpuscular Hemoglobin 28.6 pg (28.0-34.0); Mean Corpuscular Volume 91.6 fL (81-99); Mean Platelet Volume 9.5 fL (7.4-10.4); Monocytes # 0.5 10^3/uL (0.2-0.9); Neutrophils # 5.64 10^3/uL (1.8-7.7); Neutrophils % 67.8 %; Nucleated Red Blood Cells % 0 %; Platelet Count 394 10^3/cmm (130-400); Red Blood Count 4.54 10^6/uL (4.1-5.3); Red Cell Distribution Width 12.3 % (12.1-15.1); White Blood Count 8.3 10^3/uL (4.0-10.0)
[2019-10-29 19:16] LABS: Alanine Aminotransferase 52 U/L (0-33); Albumin Level 4.8 g/dL (3.5-5.2); Alkaline Phosphatase 116 IU/L (35-105); Anion Gap 16.1 (5-19); Aspartate Amino Transferase 42 U/L (0-32); Blood Urea Nitrogen 14 mg/dL (6-20); Calcium 9.9 mg/dL (8.5-10.5); Carbon Dioxide 24 mmol/L (22-29); Chloride 104 mmol/L (98-107); Globulin 2.9 g/dL (1.3-4.6); Glucose 102 mg/dL (65-115); Osmolality Calculated 286 mOsm/kg (285-295); Potassium 4.1 mmol/L (3.5-5.1); Sodium 140 mmol/L (136-145); Total Bilirubin 0.2 mg/dL (0.15-1.2); Total Protein 7.7 g/dL (6.6-8.7)
--- NOTE | 2019-10-29 20:36 | CTR_ITS ---
PROCEDURE INFORMATION: Exam: CT Abdomen And Pelvis With Contrast Exam date and time: 10/29/2019 8:50 PM Age: 54 years old Clinical indication: Constipation; Abdominal pain; Generalized; Prior surgery; Surgery type: Gb, appy, thermal ablasion TECHNIQUE: Imaging protocol: Computed tomography of the abdomen and pelvis with intravenous contrast. Radiation optimization: All CT scans at this facility use at least one of these dose optimization techniques: automated exposure control; mA and/or kV adjustment per patient size (includes targeted exams where dose is matched to clinical indication); or iterative reconstruction. Contrast material: OMNI 300; Contrast volume: 95 ml; Contrast route: INTRAVENOUS (IV); COMPARISON: CT abdomen pelvis wo con [id number] 03/08/2016 10:21 PM RADIATION DOSE METRICS: Total DLP (mGy-cm): 1302.75 FINDINGS: Lungs: Lung bases are clear. Liver: The liver is normal. Gallbladder and bile ducts: The gallbladder is absent. There is no intrahepatic or extrahepatic bile duct dilation. Pancreas: The pancreas is unremarkable. Spleen: The spleen is unremarkable. Adrenals: The adrenal glands are unremarkable. Kidneys and ureters: There is a 4 x 3 x 6 mm stone in the distal right ureter at the level of the pelvic inlet. There is moderate right hydronephrosis and diffuse hydroureter above the stone. There are no intrarenal stones on the right. Right renal parenchymal enhancement is normal. The left kidney and ureter are unremarkable. Stomach and bowel: The stomach is unremarkable. The small bowel is nondilated. The colon is unremarkable. Appendix: The appendix is absent. Intraperitoneal space: There is no free air or significant intraperitoneal free fluid. Vasculature: The portal, splenic and superior mesenteric veins are patent. The aorta is unremarkable. There is no aneurysm. Lymph nodes: There is no lymphadenopathy in the retroperitoneum, mesentery, pelvis or inguinal regions. Bladder: The urinary bladder is unremarkable. Reproductive: The uterus is unremarkable. There is no adnexal mass or large cyst. Bones/joints: There is moderate degenerative disease in the lumbar spine. The pelvis and hips are intact. Soft tissues: The abdominal wall is intact. CT/CT abdomen pelvis w con* [id number] IMPRESSION: 4 x 3 x 6 mm stone in the distal right ureter producing moderate hydronephrosis. Radiation Dose CTDIVOL = (mGy): DLP = 1302.75 (mGy-cm)
[2019-10-29 20:41] VITALS: BP 140/79; PULSE 62; RESP 18; O2SAT 97
--- NOTE | 2019-10-29 20:56 | ED_ITS ---
HPI - Abdominal Pain General: Chief Complaint: Abdominal Pain Stated Complaint: lower abd pain Time Seen by Provider: 10/29/19 20:31 Source: patient Mode of arrival: ambulatory Limitations: no limitations History of Present Illness: HPI narrative: Ms. Johnson is a nice 54-year-old female comes in complaining of diffuse abdominal pain. She states she is only had 2 bowel movements in the past several days. She denies any nausea or vomiting. Denies any fevers or chills. She denies any urinary urgency, frequency or dysuria. She has no blood in her stools or black tarry stools. The patient was concerned that she may have a bowel obstruction that is why she presents to the ER. She is not tried anything home for this except for Dulcolax and it was successful. She denies any other focal complaints or concerns. Associated Symptoms: Denies chills, coffee ground emesis, constipation, GI cramping, diarrhea, dysuria, fever(s), heartburn, hematochezia, hematuria, hematemesis, melena, nausea, syncope and vomiting Review of Systems Const: Denies: fever(s), chills, body aches, fatigue, malaise or diaphoresis Eyes: Denies: change in vision, blurry vision, blind spots, photophobia, eye discharge or eye redness ENMT: Denies: throat pain, odynophagia, hoarseness, swelling of lips/tongue, oral sores, ear or mastoid pain, ear discharge, change in hearing or nasal discharge Card: Denies: chest pain, palpitations, irregular heart rhythm, edema, lig htheadedness, syncope, pre-syncope, dyspnea on exertion or orthopnea Resp: Denies: dyspnea, productive cough, non-productive cough, wheezing, hem optysis or chest congestion GI: Reports: abdominal pain; Denies: nausea, vomiting, hematemesis, coffee ground emesis, heartburn, diarrhea, constipation, GI cramping, hematochezia or melena : Denies: flank pain, dysuria, urinary frequency, urinary urgency or hemat uria Musc: Denies: neck pain, back pain, extremity pain, extremity swelling, joint pain, joint swelling, joint redness, joint warmth or joint stiffness Skin/Breast: Denies: rash, pruritus, erythema, skin tenderness or jaundice Neuro: Denies: headache(s), numbness in extremities, weakness in extremities, sensory changes, lack of coordination, difficulty walking, dizziness, vertigo, confusion, Slurred speech present or seizure-like activity Saeed/Lymph: Denies: easy bruising, easy bleeding, petechiae, purpura or enlarged lymph nodes All/Imm: Denies: urticaria, throat swelling, tongue swelling, facial swelling or acute wheezing PFSH ED PFSH: Medical History Chronic constipation Sleep apnea with use of continuous positive airway pressure (CPAP) Urgency incontinence Surgical History History of appendectomy Tubal ligation status Family History Brother Diabetes Other Cancer Social History Smoking and tobacco status: never smoked Second hand smoke exposure: No Alcohol intake: never Adopted: No Caregiver/support person: No Lives independently: No Marital status: Current occupational status: employed History of recent travel: No Current gender identity: Female Physical Exam Const: COMMON NORMALS: no acute distress, patient oriented x3, no limitations, healthy appearing and well nourished GENERAL APPEARANCE: cooperative, well kempt and well developed HENMT: COMMON NORMALS: normocephalic, atraumatic, external ears normal, EAC's normal and Normal external nose present HEAD & SCALP: normal to inspection, normocephalic and atraumatic FACE & SINUS: normal facial exam and face symmetric NOSE: Normal external nose present and Normal nares present EXTERNAL EAR: Yes external ears normal EXTERNAL AUDITORY CANAL: EAC's normal MOUTH: Normal oral and palatal mucosa present, lip normal and tongue normal Eye: COMMON NORMALS: Equal, round and reactive pupils present and conjunctivae normal GENERAL EYE: appearance normal, both eyes and all related structures ALIGNMENT: Yes alignment normal PERIORBITAL: periorbital findings normal EYELID: eyelids normal CONJUNCTIVA: Yes conjunctivae normal SCLERA: sclerae normal PUPIL: Yes Equal, round and reactive pupils present Neck/C-Spine: COMMON NORMALS: full ROM, no lymphadenopathy, supple, no meningeal signs and no JVD GENERAL: Yes normal visual inspection and Yes trachea midline Chest: COMMONS NORMALS: normal inspection of the chest and normal palpation of entire chest wall Resp: COMMON NORMALS: normal respiratory effort, No retractions and No use of accessory muscles EFFORT & INSPECTION: Yes able to speak in complete sentences and Yes symmetric chest movement AUSCULTATION: no crackles, no rales, no rhonchi and no wheezes Cardio: COMMON NORMALS: no JVD, regular rate, regular rhythm, S1 normal heart sound present and S2 normal heart sound present RATE: regular rate RHYTHM: regular rhythm HEART SOUNDS: S1 normal heart sound present, S2 normal heart sound present, no click, no gallops, no murmurs, no rubs and abnormal split S2 GI: COMMON NORMALS: Soft to palpation and No hepatosplenomegaly present PALPATION: Yes Soft to palpation, Yes Tenderness to palpation present (GI) (Mild diffusely without rebound, guarding or rigidity.), No Guarding due to palpation present (GI), No Rigid due to palpation, Yes No hepatosplenomegaly present, No Hernia present, No Palpable mass present and No Pulsatile mass present : COMMON NORMALS: Yes no CVA tenderness BLADDER/KIDNEY EXAM: Yes no CVA tenderness EXTERNAL FEMALE EXAM: No Hernia present Back/Pelvis: COMMON NORMALS: no CVA tenderness, thoracic and lumbar spine normal to inspection, no thoracic nor lumbar tenderness and thoraco-lumbar ROM normal Extremity: COMMON NORMALS: normal to inspection, full ROM, capillary refill normal, no joint enlargement, no clubbing, cyanosis or edema and no calf tenderness Neuro: COMMON NORMALS: patient oriented x3, CN's II-XII intact bilaterally, moves all extremities, no focal motor deficits and no sensory deficits noted MENINGEAL SIGNS: Yes no meningeal signs SPEECH: speech normal Psych: COMMON NORMALS: mental status grossly normal, Normal thought process present, cooperative, normal affect, speech normal and activity/motor behavior normal APPEARANCE: Yes well kempt SPEECH: Yes normal speech THOUGHT PROCESS: Normal thought process present Skin: COMMON NORMALS: no rashes or lesions noted, turgor normal, no jaundice, no petechiae and no mottling GENERAL SKIN EXAM: no rashes or lesions noted and turgor normal Course Vital Signs: Vital signs: Vital Signs Temperature 98.4 F 10/29/19 16:34 Pulse Rate 63 10/29/19 21:30 Respiratory Rate 18 10/29/19 21:30 Blood Pressure 137/84 10/29/19 21:30 Pulse Oximetry 98 10/29/19 21:30 MDM - Abdominal Pain MDM Narrative: Medical decision making narrative: 2308 -the patient is feeling better and is ready to go home. She has evidence of a kidney stone with moderate hydronephrosis. There is no sign of urinary tract infection although some white cells are present. The patient has no urinary symptoms such as dysuria, urinary frequency or urgency. Patient has no white count, no fever she is not vomiting. Patient would like to go home I will empirically cover her with antibiotics. She has an established patient of Dr. Bates who is available to see her this week. Patient will go ahead and be discharged home and she understands that she needs to return should her symptoms change or worsen. Lab Data: Attestation: I reviewed the patient's lab results. Labs: Lab Results 10/29/19 10/29/19 10/29/19 Range/Units 18:40 18:40 22:15 WBC 8.3 (4.0-10.0) 10^3/ uL RBC 4.54 (4.1-5.3) 10^6/u L Hgb 13.0 (11.5-15.3) g/dL Hct 41.6 (37.0-47.0) % MCV 91.6 (81-99) fL MCH 28.6 (28.0-34.0) pg MCHC 31.3 (30.0-36.0) g/dL RDW 12.3 (12.1-15.1) % Plt Count 394 (130-400) 10^3/c mm MPV 9.5 (7.4-10.4) fL Neut % (Auto) 67.8 % Lymph % (Auto) 20.2 % Gila % (Auto) 6.0 % Eos % (Auto) 5.5 % Baso % (Auto) 0.4 % Neut # (Auto) 5.64 (1.8-7.7) 10^3/u L Lymph # (Auto) 1.7 (0.8-4.8) 10^3/u L Gila # (Auto) 0.5 (0.2-0.9) 10^3/u L Eos # (Auto) 0.5 (0.0-0.8) 10^3/u L Baso # (Auto) 0.0 (0.0-0.1) 10^3/u L Nucleated RBC % (a uto) 0 % Nucleated RBCs # 0.0 /100WBC Sodium 140 (136-145) mmol/L Potassium 4.1 (3.5-5.1) mmol/L Chloride 104 (98-107) mmol/L Carbon Dioxide 24 (22-29) mmol/L Anion Gap 16.1 (5-19) BUN 14 (6-20) mg/dL Creatinine 1.0 H (0.5-0.9) mg/dL GFR Calculation 58.0 L (90-130) mL/min Glucose 102 (65-115) mg/dL Calculated Osmolal ity 286 (285-295) mOsm/k g Calcium 9.9 (8.5-10.5) mg/dL Total Bilirubin 0.2 (0.15-1.2) mg/dL AST 42 H (0-32) U/L ALT 52 H (0-33) U/L Alkaline Phosphata se 116 H (35-105) IU/L Total Protein 7.7 (6.6-8.7) g/dL Albumin 4.8 (3.5-5.2) g/dL Globulin 2.9 (1.3-4.6) g/dL Urine Color Yellow (Yellow) Urine Appearance Sl hazy (CLEAR) Urine pH 7 (5-7) Ur Specific Gravit y 1.005 (1.005-1.030) Urine Protein Neg (Negative) Urine Glucose (UA) Norm (Normal) Urine Ketones Negative (Negative) Urine Blood Neg (Negative) Urine Nitrate Negative (Negative) Urine Bilirubin Neg (NEGATIVE) Urine Urobilinogen Norm (Negative) mg/dL Ur Leukocyte Bonnie ase 1+ H (Negative) Urine RBC 0-4 H (0-2) /hpf Urine WBC 5-10 H (0-5) /hpf Ur Squamous Epith Cells 5-10 H (0-5) Amorphous Sediment Not Reportable Urine Bacteria Trace (NONE) Imaging Data ^: CT Abd/Pel: Radiologist's impression: [address] [address] [address] Scan Report Signed Patient: Gold Johnson [facility] [id number] [facility] 1965 [id number] Age/Sex: 54 / F ADM Date: 10/29/19 Loc: ER Room/Bed: Attending Dr: Ordering Provider/Ordering MD: Garima Padgett DO Date of Service: 10/29/19 Procedure(s): CT abdomen pelvis w con* [id number] Accession Number(s): [id number] Report Number: [id number] PROCEDURE INFORMATION: Exam: CT Abdomen And Pelvis With Contrast Exam date and time: 10/29/2019 8:50 PM Age: 54 years old Clinical indication: Constipation; Abdominal pain; Generalized; Prior surgery; Surgery type: Gb, appy, thermal ablasion TECHNIQUE: Imaging protocol: Computed tomography of the abdomen and pelvis with intravenous contrast. Radiation optimization: All CT scans at this facility use at least one of these dose optimization techniques: automated exposure control; mA and/or kV adjustment per patient size (includes targeted exams where dose is matched to clinical indication); or iterative reconstruction. Contrast material: OMNI 300; Contrast volume: 95 ml; Contrast route: INTRAVENOUS (IV); COMPARISON: CT abdomen pelvis wo con [id number] 03/08/2016 10:21 PM RADIATION DOSE METRICS: Total DLP (mGy-cm): 1302.75 FINDINGS: Lungs: Lung bases are clear. Liver: The liver is normal. Gallbladder and bile ducts: The gallbladder is absent. There is no intrahepatic or extrahepatic bile duct dilation. Pancreas: The pancreas is unremarkable. Spleen: The spleen is unremarkable. Adrenals: The adrenal glands are unremarkable. Kidneys and ureters: There is a 4 x 3 x 6 mm stone in the distal right ureter at the level of the pelvic inlet. There is moderate right hydronephrosis and diffuse hydroureter above the stone. There are no intrarenal stones on the right. Right renal parenchymal enhancement is normal. The left kidney and ureter are unremarkable. Stomach and bowel: The stomach is unremarkable. The small bowel is nondilated. The colon is unremarkable. Appendix: The appendix is absent. Intraperitoneal space: There is no free air or significant intraperitoneal free fluid. Vasculature: The portal, splenic and superior mesenteric veins are patent. The aorta is unremarkable. There is no aneurysm. Lymph nodes: There is no lymphadenopathy in the retroperitoneum, mesentery, pelvis or inguinal regions. Bladder: The urinary bladder is unremarkable. Reproductive: The uterus is unremarkable. There is no adnexal mass or large cyst. Bones/joints: There is moderate degenerative disease in the lumbar spine. The pelvis and hips are intact. Soft tissues: The abdominal wall is intact. CT/CT abdomen pelvis w con* [id number] IMPRESSION: 4 x 3 x 6 mm stone in the distal right ureter producing moderate hydronephrosis. Radiation Dose CTDIVOL = (mGy): DLP = 1302.75 (mGy-cm) Dictated By: Travis Hayden MD Signed By: Travis Hayden MD Signed Date/Time: 10/29/192141 DD/ 40 Discharge Plan Discharge Patient Disposition: Home Clinical Impression: Right ureteral stone Condition: Stable Prescriptions: New hydrocodone-acetaminophen [[place]] 5-325 mg tablet 1 tab PO Q6H PRN (Reason: pain) 5 Days Qty: 8 RF: 0 cefdinir 300 mg capsule 300 mg PO Q12H 10 Days Qty: 20 RF: 0 ondansetron HCl [Zofran] 4 mg tablet 4 mg PO Q6H PRN (Reason: nausea and vomiting) Qty: 20 RF: 0 No Action sumatriptan succinate [Imitrex] 100 mg tablet 100 mg PO Q2H PRN (Reason: Migraine Headache) RF: 0 albuterol sulfate 90 mcg/actuation aerosol powdr breath activated 2 inh INHALATION Q4H PRN (Reason: Shortness Of Breath) RF: 0 atorvastatin [Lipitor] 20 mg tablet 20 mg PO DAILY RF: 0 fluticasone propionate [Flonase Allergy Relief] 50 mcg/actuation spray,suspension 1 spray INTRANASAL BID PRN (Reason: UNKNOWN) RF: 0 celecoxib [Celebrex] 50 mg capsule 100 mg PO BID RF: 0 zonisamide 100 mg capsule 500 mg PO BEDTIME RF: 0 trazodone 100 mg tablet 150 mg PO BEDTIME Qty: 45 RF: 2 fluoxetine 40 mg capsule 80 mg PO DAILY Qty: 60 RF: 2 cyanocobalamin (vitamin B-12) [Vitamin B-12] 1,000 mcg Tablet 1,000 mcg PO DAILY RF: 0 pantoprazole [Protonix] 20 mg Tablet,Delayed Release (Dr/Ec) 20 mg PO BID RF: 0 oxybutynin chloride 5 mg tablet 10 mg PO BID RF: 0 spironolactone 50 mg Tablet 50 mg PO DAILY RF: 0 buprenorphine [Butrans] 10 mcg/hour patch weekly 10 mcg topical Q7D RF: 0 lactulose 10 gram/15 mL solution 15 ml PO DAILY PRN (Reason: constipation) Qty: 237 RF: 0 ondansetron 4 mg tablet,disintegrating 4 mg PO Q6H PRN (Reason: nausea and vomiting) Qty: 14 RF: 0 tamsulosin [Flomax] 0.4 mg capsule 0.4 mg PO DAILY Qty: 4 RF: 0 Discharge Orders: Discharge Order (Routine); Ordered 10/29/19 Ordered By: Garima Padgett Referrals: Mckenzie Phillips MD [Primary Care Provider] - 1-3 days Delio Cuello MD [Physician] - 1-3 days Discharge Diet: Advance as tolerated Discharge Activity: Increase activity as tolerated Patient Instructions: Kidney Stones (ED) Activity Restrictions/Additional Instructions: Please return to the ER immediately for any of the signs or symptoms listed on your discharge instruction sheets, worsening/changing of your symptoms, you are not getting better as quickly as expected, or for ANY other cause or concerns. Return to the ER for fever, return of your pain, vomiting, or for any other cause for concern. Coding Level of Care Code ED Hypercil Core Transformer Assembler for Chg Fwd Exam Comprehensive
[2019-10-29] MEDS: iohexol 300 mg/mL 100 mL Btl IV (21:11)
[2019-10-29] MEDS: sodium chloride 0.9% 1,000 ML 999 ML IV (21:27)
[2019-10-29] MEDS: ondansetron 2 mg/ML SDV 2 mL 4 MG IVP (21:28)
[2019-10-29 21:29] VITALS: RESP 18; O2SAT 96
[2019-10-29] MEDS: morphine 4 mg/mL SDV 1 mL IVP (21:29)
[2019-10-29 21:30] VITALS: BP 137/84; PULSE 63; RESP 18; O2SAT 98
[2019-10-29 22:44] LABS: Add Urine Microscopic? YES; Bacteria Urine TRACE; Bilirubin Urine Neg (NEGATIVE); Blood Urine Neg (Negative); Glucose Urine UA Norm (Normal); Ketones Urine Negative (Negative); Leukocyte Esterase Urine 1+ (Negative); Nitrate Urine Negative (Negative); Protein Urine Neg (Negative); RBC Urine 0-4 /hpf (0-2); Specific Gravity, Urine 1.005 (1.005-1.030); Urine Appearance SL Hazy (CLEAR); Urine Color Yellow (Yellow); Urobilinogen Urine Norm (Negative); pH Urine 7 (5-7)
[2019-10-29] MEDS: cefTRIAXone 2,000 MG in sodium chloride 0.9% (plus) 50 ML 100 MG IV (23:00)
[2019-10-30] VITALS: BP 129/80; PULSE 76; RESP 14; O2SAT 98
== END 2019-10-30 00:01 | disposition home or self-care (01) ==
PROVIDERS: Physician Assistant; Emergency Provider Emergency Medicine; PCP Family Medicine
DX: N20.1 Calculus of ureter (principal)
CPT/HCPCS: 12345; 36415; 74177; 80053; 81001; 81003; 85025; 96365; 96375; 99282; 99283; J0696; J2270; J2405; J7030; Q9967

== ENCOUNTER 2019-10-31 08:47 | Outpatient (CLI) | payer MEDICAID, SELFPAY ==
--- NOTE | 2019-10-31 09:00 | XRR_ITS ---
PROCEDURE INFORMATION: Exam: XR Abdomen, 1 View Exam date and time: 10/31/2019 9:09 AM Age: 54 years old Clinical indication: Condition or disease; Kidney or ureter condition; Calculus (stone) in ureter; Prior surgery; Surgery date: 6+ months; Surgery type: Gb, appy, hernia; Additional info: Ureteral stone TECHNIQUE: Imaging protocol: XR of the abdomen. Views: Frontal supine view of the abdomen. 1 View. COMPARISON: CT abdomen pelvis w con* [id number] 10/29/2019 9:02 PM FINDINGS: Gastrointestinal tract: Unremarkable. No bowel dilation. Organs: The gallbladder is likely surgically absent, with metallic clips overlying the gallbladder fossa. Vasculature: Right pelvic phlebolith. Bones/joints: The previously demonstrated right pelvic ureteral calculus likely visualized overlying the right S1 sacral ala (stable position). There is degenerative disc disease at multiple lumbar spine disk levels. Slight lumbar leftward spinal curvature. XR/XR KUB [id number] IMPRESSION: 1. The previously demonstrated right pelvic ureteral calculus likely visualized overlying the right S1 sacral ala (stable position). 2. Prior cholecystectomy.
== END 2019-10-31 08:48 | disposition home or self-care (01) ==
PROVIDERS: PCP Family Medicine; Visit Provider Nurse Practitioner Family
DX: N20.1 Calculus of ureter (principal)
CPT/HCPCS: 74018; 81001

== ENCOUNTER → 2019-11-07 09:04 | Outpatient (BNVA) | payer MEDICAID, SELFPAY | PROVIDERS: PCP Family Medicine; Visit Provider Social Worker Clinical | DX: F33.2 Major depressive disorder, recurrent severe without psychotic features (principal); F43.12 Post-traumatic stress disorder, chronic | CPT/HCPCS: 90834 ==

== ENCOUNTER 2019-11-09 07:24 | Outpatient (CLI) | payer MEDICAID, SELFPAY ==
--- NOTE | 2019-11-09 07:45 | XRR_ITS ---
PROCEDURE INFORMATION: Exam: XR Abdomen, 1 View Exam date and time: 11/09/2019 7:37 AM Age: 54 years old Clinical indication: Condition or disease; Other: Stone; Prior surgery; Surgery type: Appendix, gallbladder, tubal TECHNIQUE: Imaging protocol: XR of the abdomen. Views: Frontal supine view of the abdomen. 1 View. COMPARISON: CR XR KUB [id number] 10/31/2019 9:03 AM FINDINGS: Gastrointestinal tract: Prominent stool, without significant bowel dilatation. Intraperitoneal space: Incomplete visualization of the superior most abdomen. Residual 4 mm nodular calcification overlying the right pelvis. If urolithiasis is of clinical concern, CT may be of benefit for further evaluation. Bones/joints: Degenerative change. When correlating with the previous study, no significant interval changes are present. XR/XR KUB [id number] IMPRESSION: Stable appearance of the abdomen, not significantly changed from 10/31/19.
== END 2019-11-09 07:25 | disposition home or self-care (01) ==
LOC: RAD 07:27
PROVIDERS: PCP Family Medicine; Visit Provider Urology
DX: N20.1 Calculus of ureter (principal)
CPT/HCPCS: 74018; 81001

== ENCOUNTER → 2019-11-23 08:36 | Outpatient (BNVA) | payer MEDICAID, SELFPAY | PROVIDERS: PCP Family Medicine; Visit Provider Social Worker Clinical | DX: F43.12 Post-traumatic stress disorder, chronic (principal); F33.2 Major depressive disorder, recurrent severe without psychotic features | CPT/HCPCS: 90834 ==

== ENCOUNTER 2019-11-27 20:00 | Outpatient (CLI) | payer MEDICAID, SELFPAY | END 2019-11-27 20:01 | disposition home or self-care (01) | LOC: SLEEP 11-28 09:48 | PROVIDERS: PCP Family Medicine; Visit Provider Nurse Practitioner Family | DX: G47.10 Hypersomnia, unspecified (principal); R53.1 Weakness; R53.83 Other fatigue; R06.83 Snoring | CPT/HCPCS: 95810 ==

== ENCOUNTER 2019-11-29 08:27 | Outpatient (CLI) | payer MEDICAID, SELFPAY ==
--- NOTE | 2019-11-29 08:15 | XR_ITS ---
WS: [id number] KUB, 11/29/2019 Clinical Data: URETERAL STONE Comparison: KUB, 11/09/2019. Findings: There is a phlebolith in the right side of the true pelvis unchanged. The possible distal right urete ral calculus is not definitely seen. There is fecal material in the colon. There are clips in the rig ht upper quadrant from a cholecystectomy. XR/XR KUB [id number] Impression: No change from previous KUB.
== END 2019-11-29 08:28 | disposition home or self-care (01) ==
LOC: RAD 08:27
PROVIDERS: PCP Family Medicine; Visit Provider Urology
DX: N20.1 Calculus of ureter (principal)
CPT/HCPCS: 74018; 81001

== ENCOUNTER 2019-12-12 14:14 | Outpatient (CLI) | payer MEDICAID, SELFPAY ==
--- NOTE | 2019-12-12 14:15 | US_ITS ---
WS: [id number] RENAL ULTRASOUND HISTORY: HYDRONEPHROSIS COMPARISON: 10/29/2019 and 02/03/2015 TECHNIQUE: 2-D and color Doppler imaging of the kidney submitted. Right kidney: 12.1 cm x 5.1 cm x 5.4 cm. Normal size kidney. Moderate hydronephrosis. No mass. Left kidney: 10.4 cm x 4.7 cm x 5.5 cm. Normal echogenicity with no hydronephrosis or mass. Aorta: Normal. Urinary Bladder: Normal distention. US/US renal BI* [id number] IMPRESSION: Moderate RIGHT hydronephrosis. Hydronephrosis was also described on 10/29/2019 Julissa Sánchez
--- NOTE | 2019-12-12 14:23 | XRR_ITS ---
PROCEDURE INFORMATION: Exam: XR Abdomen, 1 View Exam date and time: 12/12/2019 2:21 PM Age: 54 years old Clinical indication: Condition or disease; Kidney or ureter condition; Calculus (stone) in kidney; Prior surgery; Surgery type: Gb, tubal, d&c; Additional info: Stone f/u RT side TECHNIQUE: Imaging protocol: XR of the abdomen. Views: Frontal supine view of the abdomen. 1 View. COMPARISON: CR XR KUB [id number] 11/29/2019 8:45 AM COMPARISON MORE: CT abdomen pelvis w con* [id number] 10/29/2019 9:02:50 PM FINDINGS: Gastrointestinal tract: Normal. No bowel dilation. Organs: Both kidneys are obscured by bowel gas, no definite urinary tract calculus. Stable right pelvic calcification consistent with a phlebolith. Bones/joints: No acute findings. XR/XR KUB [id number] IMPRESSION: No acute findings.
== END 2019-12-12 14:15 | disposition home or self-care (01) ==
LOC: US 14:18
PROVIDERS: PCP Nurse Practitioner Family; Visit Provider Urology
DX: N20.1 Calculus of ureter (principal); N13.30 Unspecified hydronephrosis
CPT/HCPCS: 74018; 76770; 81001

== ENCOUNTER → 2019-12-14 09:10 | Outpatient (BNVA) | payer MEDICAID, SELFPAY | PROVIDERS: PCP Nurse Practitioner Family; Visit Provider Psychiatry & Neurology Psychiatry | DX: F33.2 Major depressive disorder, recurrent severe without psychotic features (principal); F60.3 Borderline personality disorder; F43.12 Post-traumatic stress disorder, chronic | CPT/HCPCS: 99213 ==

== ENCOUNTER → 2019-12-25 08:04 | Outpatient (BNVA) | payer MEDICAID, SELFPAY | PROVIDERS: PCP Nurse Practitioner Family; Visit Provider Internal Medicine | DX: Z20.828 Contact with and (suspected) exposure to other viral communicable diseases (principal) | CPT/HCPCS: 87635 ==

== ENCOUNTER 2019-12-27 10:20 | Day surgery (SDC) | payer MEDICAID, SELFPAY ==
[2019-12-27] VITALS (8 sets, daily range): BP systolic 137–173; BP diastolic 83–103; PULSE 63–93; RESP 12–19; TEMP 36.1–36.7; O2SAT 93–100
--- NOTE | 2019-12-27 10:12 | SC_ITS ---
WS: [id number] C-arm fluoroscopy of the right abdomen for ureteral stent placement, 12/27/2019 Clinical Data: Right ureteroscopy laser lithotripsy Comparison: KUB, 12/12/2019. Findings: There is a probable stone in the distal right ureter at the level of the pelvic inlet. Another image demonstrates a right ureteral catheter curled in the region of the right renal pelvis. NC/C-arm FL for Urology Impression: Insertion of right ureteral catheter.
[2019-12-27] MEDS: sodium chloride 0.9% 1,000 ML 30 ML IV (10:44)
--- NOTE | 2019-12-27 11:44 | ANES.PREANE2 ---
Pre-Anesthetic Assessment Pre-Anesthetic Assessment: Height/Weight: Height 1.63 m Weight 79.379 kg Temp Pulse Resp BP Pulse Ox 97.0 F L 66 18 137/83 100 12/27/19 10:28 12/27/19 10:28 12/27/19 10:28 12/27/19 10:28 12/27/19 10:28 Preop Diagnosis: Refractory right ureteral calculus Proposed Procedure: Operation Date: 12/27/19 12:00 Proposed Procedures p Laser Lithotripsy 02917 [id number] 94544 N13.30 N20.1(Not Applicable) - Delio Cuello MD s Cystoscopy(Not Applicable) - Delio Cuello MD s Retrograde Pyelogram(Right) - MD jimi Booth Ureteroscopy(Not Applicable) - MD jimi Booth Ureteral Stent Placement(Not Applicable) - Delio Cuello MD Familial anesthetic complications: None Was Beta Freedom taken within 24 hours: N/A Last intake: Intake Last Liquid Date 12/26/19 Last Liquid Time 20:00 Last Solid Date 12/26/19 Last Solid Time 20:00 Social: Social History: No alcohol and No tobacco Exam: Pre-Anes Outpt Exam: alert, oriented x 3, clear to auscultation bilaterally and regular rate & rhythm Airway: Cervical ROM: WNL MP: 2 Dentition: False GI: GI: GERD Metabolic: Metabolic: Hyperlipidemia Neuropsych: Neuropsych: Bipolar, Depression and Seizure Anesthetic Plan: ASA status: 2 Anesthesia: General Risk of > 500 ml blood loss (7ml/kg in children): No Meds/Allergies Current Medications: Current Medications Generic Name Dose Route Start Last Admin Trade Name Freq PRN Reason Stop Dose Admin Sodium Chloride 1,000 mls @ 30 ml s/hr 12/27/19 10:15 12/27/19 10:44 Sodium Chloride 0.9% IV 12/28/19 10:14 30 mls/hr .Q24H SANCHO Administration PFSH Anesthesia PFSH: Medical History Chronic constipation Hydronephrosis of right kidney Sleep apnea with use of continuous positive airway pressure (CPAP) Urgency incontinence Surgical History History of appendectomy Tubal ligation status Family History Brother Diabetes Other Cancer Social History Smoking and tobacco status: never smoked Second hand smoke exposure: No Alcohol intake: never Adopted: No Caregiver/support person: No Lives independently: No Marital status: Current occupational status: employed History of recent travel: No Current gender identity: Female Data Anesthesia Cardiac Studies: No Data to Display
[2019-12-27] MEDS: levofloxacin-dextrose 5 % 500 MG/100 ML PREMIX 100 MG IV (12:15)
[2019-12-27] MEDS: iohexol 300 mg/mL 50 mL Btl (OR ONLY) XX (13:07)
--- NOTE | 2019-12-27 13:12 | P.HPUD_ITS ---
Surgery/Procedure H&P Update DATE OF PROCEDURE: December 27, 2019 DATE H&P PERFORMED: 12/12/19 H&P UPDATE INFORMATION: I have reviewed H&P completed within last 30 days, I have examined patient prior to procedure, No changes to prior documentation and H&P is in [facility] EMR on date indicated CHANGES TO PREVIOUS DOCUMENTATION: Has not passed a stone since prior visit. Still having right renal colicky symptoms. PREOP DIAGNOSIS: Refractory right ureteral calculus PLANNED PROCEDURE: Operation Date: 12/27/19 12:00 Proposed Procedures p Laser Lithotripsy 79874 [id number] 54701 N13.30 N20.1(Not Applicable) - Delio Cuello MD s Cystoscopy(Not Applicable) - Delio Cuello MD s Retrograde Pyelogram(Right) - MD jimi Booth Ureteroscopy(Not Applicable) - Delio Cuello MD s Ureteral Stent Placement(Not Applicable) - Delio Cuello MD
--- NOTE | 2019-12-27 13:13 | P.OP_ITS ---
Operative Report Date of procedure: December 27, 2019 Pre-op Diagnosis: Refractory right ureteral calculus Post-op Diagnosis: Impacted right mid ureteral stone Procedure Done: 1. Cystoscopy, right retrograde ureteropyelogram 2. Right ureteroscopy, laser lithotripsy, stent (7 Bur[place]ian by 26 cm double- pigtail no string) Implants: Right ureteral stent Pathology: Stone fragments Surgeon: Cuate Anesthesia: General (Jose R MARRERO) Estimated blood loss: Less than 5 cc Urine output: Not measured Complications: None Findings: Stone was impacted in the ureter at the level of the pelvic vessels crossing. Combination of manual manipulation and laser lithotripsy to fragment the stone into small pieces that were then flushed from the ureter with the basket. Condition: stable Disposition: PACU Brief History: Mrs. Johnson is a very pleasant 54-year-old white female with a refractory right ureteral calculus having failed a prolonged course of conservative management. She is still symptomatic. Admitted for endoscopic treatment of the stone. Procedure: After routine preoperative evaluation examination and obtaining of informed consent she was taken to the operating suite on 12/27/2019 where general anesthesia was administered without difficulty after appropriate timeout was performed, SCDs confirmed to be functioning, preoperative antibiotics administered, beta-bárbara protocol confirmed. Prepped and draped in the usual sterile fashion in dorsolithotomy position pain careful attention to avoiding pressure points. 21 Burundian cystoscope with 30 degree lens was introduced into the urethral meatus and advanced into the bladder to videoscopy. No stones were seen. Bladder appeared normal. An 8 Burundian cone-tipped catheter was intubated into the right ureteral orifice for right retrograde ureteropyelogram showing normal course and caliber of the ureter up into the point of the pelvic vessel crossing where there was a distinct narrowing and a filling defect proximal to that. It appeared that the stone was causing a significant inflammation and probably impacted. The ureter proximal to the stone was dilated as expected based on preoperative ultrasound findings. A flexible tip guidewire was then passed up the ureter and easily bypassed this area and curled in the upper pole calyx. The distal ureter was then dilated with a 15 Bur[place]ian 4 cm balloon with no waist at 6 walter of pressure. A second guidewire was then passed easily bypassing the area of concern. The first wire was secured to the drapes as a safety wire and the second wire was the working wire. A 24 cm ureteral access sheath was then advanced over the guide wire to just below the level of the stone. A 7 Burundian offset semirigid ureteroscope was then advanced up the ureteral access sheath and there was a significant amount of inflammation noted consistent with an impacted stone. The end of the scope was utilized to try to scrape the membranous webbing off of the stone and the stone was then easily visualized and fragmented with a 273 ?m holmium laser fiber into small pieces that were washed through the scope, through the sheath, and removed with a parachute basket. On final inspection no significant fragments remained. I could not see any residual impacted components. The ureter was quite inflamed and for that reason it was decided to leave a stent in with anticipation of it remaining in for several weeks for better healing. The cystoscope was then backloaded over the guidewire and a 7 Bur[place]ian by 26 cm double-pigtail stent was advanced over the guidewire through the cystoscope into appropriate position as confirmed via fluoroscopy and cystoscopy. Bladder was again inspected. No stone fragments were seen. The bladder was drained and the procedure completed. She tolerated the procedure well without complications and was awakened in the operating room and returned to the recovery room in stable condition. PLANS: 1. Discharge from outpatient surgery today with stent indwelling 2. Follow-up in about 3 weeks with [facility] first for likely cystoscopy and stent removal.
--- NOTE | 2019-12-27 14:56 | ANE.PACU2 ---
Inpatient post-anesthesia follow up: Airway intact: Yes Vital signs: Temperature 97.8 F Pulse Rate 63 Respiratory Rate 18 Blood Pressure 137/88 Pulse Oximetry 98 Oxygen Delivery Me thod Room Air Oxygen Flow Rate 2 Fraction of Inspir ed Oxygen Hydration adequate: Yes Nausea and vomiting: No Pain level: 1 Mental status: Baseline
[2020-01-03 21:52] LABS: Stone Source RIGHT URETERAL STONE
== END 2019-12-27 14:40 | disposition home or self-care (01) ==
PROVIDERS: PCP Nurse Practitioner Family; Visit Provider Urology
PROC: (CPT 52356; principal; 2019-12-27 12:00)
PROC: 0TJB8ZZ Inspection of Bladder, Via Natural or Artificial Opening Endoscopic (ICD-10-PCS; CPT 52000; 2019-12-27 12:00)
PROC: (CPT 74420; 2019-12-27 12:00)
PROC: 0TJ98ZZ Inspection of Ureter, Via Natural or Artificial Opening Endoscopic (ICD-10-PCS; CPT 52351; 2019-12-27 12:00)
PROC: (CPT 50605; 2019-12-27 12:00)
DX: N20.1 Calculus of ureter (principal); K21.9 Gastro-esophageal reflux disease without esophagitis; E78.5 Hyperlipidemia, unspecified; F31.9 Bipolar disorder, unspecified; G47.30 Sleep apnea, unspecified; N13.30 Unspecified hydronephrosis
CPT/HCPCS: 52356; 12345; 76000; 82365; 88300; C1725; C2625; J1956; J2405; J2704; J2710; J3010; J3490; J7030

== ENCOUNTER 2020-01-08 12:28 | Outpatient (CLI) | payer MEDICAID, SELFPAY ==
--- NOTE | 2020-01-08 12:30 | XRR_ITS ---
PROCEDURE INFORMATION: Exam: XR Abdomen, 1 View Exam date and time: 01/08/2020 1:02 PM Age: 54 years old Clinical indication: Condition or disease; Kidney or ureter condition; Calculus (stone) in kidney; Prior surgery; Surgery type: Appy, gb, cysto TECHNIQUE: Imaging protocol: XR of the abdomen. Views: Frontal supine view of the abdomen. 1 View. COMPARISON: CR XR KUB [id number] 12/12/2019 2:47 PM FINDINGS: Tubes, catheters and devices: There is a right ureteral stent. Gastrointestinal tract: There is stool in the ascending and transverse colons. Bones/joints: There is disc space narrowing and osteophyte formation throughout the lumbar spine. There is calcification in the right hemipelvis as before. XR/XR KUB [id number] IMPRESSION: There are no acute concerning abnormalities.
== END 2020-01-08 12:29 | disposition home or self-care (01) ==
LOC: RAD 12:32
PROVIDERS: PCP Nurse Practitioner Family; Visit Provider Urology
DX: N20.0 Calculus of kidney (principal); F43.12 Post-traumatic stress disorder, chronic; F60.3 Borderline personality disorder; F33.2 Major depressive disorder, recurrent severe without psychotic features
CPT/HCPCS: 90834; 74018; 81001

== ENCOUNTER 2020-01-18 09:27 | Outpatient (CLI) | payer MEDICAID, SELFPAY ==
--- NOTE | 2020-01-18 09:15 | XR_ITS ---
WS: [id number] ABDOMEN: SUPINE FILM HISTORY: URETERAL STONE COMPARISON: 01/08/2020 Normal bowel gas pattern. Mild thoracic spondylosis. Prior cholecystectomy. Right kidney: Double pigtail RIGHT ureteral stent in unchanged position. No calcification along the c ourse of the stent. Left kidney: No renal or ureteral stone identified. XR/XR KUB [id number] IMPRESSION: Unchanged position of a double pigtail RIGHT ureteral stent. No associated calc ifications.
== END 2020-01-18 09:28 | disposition home or self-care (01) ==
LOC: RAD 09:30
PROVIDERS: PCP Nurse Practitioner Family; Visit Provider Urology
DX: N20.1 Calculus of ureter (principal); Z96.0 Presence of urogenital implants
CPT/HCPCS: 74018; 81001

== ENCOUNTER → 2020-02-07 07:50 | Outpatient (BNVA) | payer MEDICAID, SELFPAY | PROVIDERS: PCP Nurse Practitioner Family; Referring Provider Internal Medicine; Visit Provider Specialist | DX: R56.9 Unspecified convulsions (principal) | CPT/HCPCS: 95816 ==

== ENCOUNTER 2020-02-17 18:25 | Emergency (ER) | payer MEDICAID, SELFPAY ==
[2020-02-17 18:27] VITALS: BP 146/87; PULSE 70; RESP 20; TEMP 36.8; O2SAT 97; BMI 30.9
--- NOTE | 2020-02-17 18:38 | ECG_ITS ---
[facility] Test Date: 2020-02-17 Pat Name: Gold Johnson Department: Room: Gender: Female Internal Control Consultant: : 1965 Requested By: Steffi Downey Order Number: [id number] Lou MD: Torres Fofana M.D. Measurements Intervals Terrell Rate: 66 P: 1 PA: 166 QRS: -15 QRSD: 101 T: 0 QT: 403 QTc: 425 Interpretive Statements SINUS RHYTHM LOW QRS VOLTAGE IN PRECORDIAL LEADS [QRS DEFLECTION < 1.0 mV IN CHEST LEADS] INFERIOR MYOCARDIAL INFARCTION , OF INDETERMINATE AGE [40+ ms Q WAVE AND/OR ST/T ABNORMALITY IN II/aVF] Compared to ECG 09/19/2019 14:46:52 Myocardial infarct finding now present Poor R-wave progression no longer present Electronically Signed On 02-17-2020 21:16:02 [employer] by Torres Fofana M.D. [id number]
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
[2020-02-17 19:14] LABS: Add Urine Microscopic? NO
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
[2020-02-17 19:20] LABS: Basophils % 0.6 %; Eosinophils # 0.3 10^3/uL (0.0-0.8); Eosinophils % 4.7 %; Hemoglobin 13.2 g/dL (11.5-15.3); Lymphocytes # 1.8 10^3/uL (0.8-4.8); Lymphocytes % 25.5 %; Mean Corpuscular HGB Conc 32.2 g/dL (30.0-36.0); Mean Corpuscular Hemoglobin 29.9 pg (28.0-34.0); Mean Platelet Volume 9.5 fL (7.4-10.4); Monocytes # 0.5 10^3/uL (0.2-0.9); Monocytes % 7.6 %; Neutrophils # 4.21 10^3/uL (1.8-7.7); Neutrophils % 61.5 %; Nucleated Red Blood Cells % 0 %; Platelet Count 325 10^3/cmm (130-400); Red Blood Count 4.41 10^6/uL (4.1-5.3); White Blood Count 6.9 10^3/uL (4.0-10.0)
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
[2020-02-17 19:38] LABS: Bilirubin Urine Neg (Negative); Blood Urine Neg (Negative); Glucose Urine UA Norm (Normal); Ketones Urine Negative (Negative); Leukocyte Esterase Urine Negative (Negative); Nitrate Urine Negative (Negative); Protein Urine Neg (Negative); Specific Gravity, Urine 1.025 (1.005-1.030); Urine Appearance Clear (CLEAR); Urine Color Yellow (Yellow); Urobilinogen Urine 1 mg/dL (Negative); pH Urine 5 (5-7)
[2020-02-17 19:45] LABS: Alanine Aminotransferase 66 U/L (0-33); Albumin Level 4.4 g/dL (3.5-5.2); Alkaline Phosphatase 131 IU/L (35-105); Anion Gap 15.2 (5-19); Aspartate Amino Transferase 32 U/L (0-32); Blood Urea Nitrogen 16 mg/dL (6-20); Calcium 9.1 mg/dL (8.5-10.5); Carbon Dioxide 23 mmol/L (22-29); Chloride 108 mmol/L (98-107); Globulin 2.1 g/dL (1.3-4.6); Glucose 94 mg/dL (65-115); Lipase 33 U/L (13-60); Osmolality Calculated 295 mOsm/kg (285-295); Potassium 4.2 mmol/L (3.5-5.1); Sodium 142 mmol/L (136-145); Total Bilirubin 0.2 mg/dL (0.15-1.2); Total Protein 6.5 g/dL (6.6-8.7)
[2020-02-17 19:47] LABS: Troponin(5th) Baseline 10 ng/L (0-10)
[2020-02-17 20:13] VITALS: BP 120/78; PULSE 84; RESP 16; O2SAT 96
[2020-02-17] MEDS: acetaminophen 500 mg Tablet 1000 MG PO (20:21)
== END 2020-02-17 20:22 | disposition home or self-care (01) ==
PROVIDERS: Emergency Provider Emergency Medicine; PCP Nurse Practitioner Family
DX: R07.89 Other chest pain (principal); V89.2XXA Person injured in unspecified motor-vehicle accident, traffic, initial encounter
CPT/HCPCS: 12345; 70450; 71045; 72125; 80053; 81003; 83690; 84484; 85025; 93005; 99282; 99283

== ENCOUNTER → 2020-02-25 15:47 | Outpatient (BNVA) | payer MEDICAID, SELFPAY | PROVIDERS: PCP Nurse Practitioner Family; Visit Provider Orthopaedic Surgery | DX: M25.562 Pain in left knee (principal); M25.561 Pain in right knee | CPT/HCPCS: 73560; 73565 ==

== ENCOUNTER 2020-03-06 15:21 | Outpatient (CLI) | payer MEDICAID, SELFPAY ==
--- NOTE | 2020-03-06 15:39 | XR_ITS ---
WS: [id number] Chest 2 views, 03/06/2020 Clinical Data: ATYPICAL CHEST PAIN Comparison: Portable chest, 02/17/2020. Findings: No nodules, masses or effusions are seen. The heart is normal. The pulmonary vascularity is not increased. No pneumonia or pneumothorax is seen. The right diaphragm is elevated. There are clip s in the right upper quadrant from a cholecystectomy. XR/XR chest 2V* [id number] Impression: Negative chest.
== END 2020-03-06 15:22 | disposition home or self-care (01) ==
PROVIDERS: PCP Nurse Practitioner Family; Visit Provider Nurse Practitioner Family
DX: R07.89 Other chest pain (principal)
CPT/HCPCS: 71046

== ENCOUNTER → 2020-03-11 08:04 | Outpatient (BNVA) | payer MEDICAID, SELFPAY | PROVIDERS: PCP Nurse Practitioner Family; Visit Provider Psychiatry & Neurology Psychiatry | DX: F43.12 Post-traumatic stress disorder, chronic (principal); F60.3 Borderline personality disorder; F33.2 Major depressive disorder, recurrent severe without psychotic features | CPT/HCPCS: 99213 ==

== ENCOUNTER → 2020-03-24 08:01 | Outpatient (BNVA) | payer MEDICAID, SELFPAY | PROVIDERS: PCP Nurse Practitioner Family; Visit Provider Social Worker Clinical | DX: F33.2 Major depressive disorder, recurrent severe without psychotic features (principal); F43.12 Post-traumatic stress disorder, chronic | CPT/HCPCS: 90834 ==

== ENCOUNTER 2020-04-07 15:42 | Emergency (ER) | payer OTHER, SELFPAY ==
[2020-04-07 15:51] VITALS: BP 122/85; PULSE 71; RESP 18; TEMP 36.3; O2SAT 94; BMI 30.9
--- NOTE | 2020-04-07 17:18 | ED_ITS ---
HPI - Fall General: Chief Complaint: Fall Stated Complaint: FALL/BACK PAIN/ WORKERS COMP Time Seen by Provider: 04/07/20 17:09 History of Present Illness: HPI Narrative: Patient is a 54-year-old female comes to the ED with acute on chronic lower back pain. Injury occurred just prior to arrival. Patient says that she was carrying a case of water bottles and then set them down on the ground. When she went to stand back up she lost her balance and fell hitting the ground with her left hip. After fall she is now having lower back pain that radiates down into left leg. She describes it as kind of a burning pain radiating down the leg. Denies any pelvic anesthesia, bladder or bowel incontinence, weakness to extremities. Patient says she sees pain management clinic in [place] for lower back pain. Associated symptoms-after fall: Denies abdominal pain, chest pain, headache(s), hematuria or neck pain Review of Systems Const: Denies: fever(s), chills or fatigue Eyes: Denies: change in vision or eye discomfort ENMT: Denies: throat pain, odynophagia, nasal discharge or nasal congestion Card: Denies: chest pain, palpitations, edema, swelling of feet/ankles, dyspnea on exertion or orthopnea Resp: Denies: dyspnea, productive cough or non-productive cough GI: Denies: abdominal pain, nausea, vomiting, diarrhea, constipation or hematochezia : Denies: flank pain, dysuria or hematuria Musc: Reports: back pain and joint pain (Left hip pain); Denies: neck pain or extremity swelling Skin/Breast: Denies: rash or new lesions Neuro: Denies: headache(s), numbness in extremities or weakness in extremities PFSH ED PFSH: Medical History Chronic constipation Hydronephrosis of right kidney Sleep apnea with use of continuous positive airway pressure (CPAP) Urgency incontinence Surgical History History of appendectomy Hx of cholecystectomy Status post laser lithotripsy of ureteral calculus Tubal ligation status Family History Brother Diabetes Other Cancer Social History Smoking and tobacco status: never smoked Second hand smoke exposure: No Alcohol intake: never Adopted: No Caregiver/support person: No Lives independently: No Marital status: Current occupational status: employed History of recent travel: No Current gender identity: Female Physical Exam Const: COMMON NORMALS: no acute distress, patient oriented x3 and alert GENERAL APPEARANCE: cooperative and comfortable HENMT: COMMON NORMALS: normocephalic HEAD & SCALP: normocephalic MOUTH: Normal oral and palatal mucosa present THROAT: posterior oropharynx normal and uvula midline Neck/C-Spine: COMMON NORMALS: supple GENERAL: Yes normal visual inspection Resp: COMMON NORMALS: normal respiratory effort, No retractions, No use of accessory muscles and clear to auscultation bilaterally AUSCULTATION: clear to auscultation bilaterally Cardio: COMMON NORMALS: regular rate, regular rhythm, S1 normal heart sound present, S2 normal heart sound present, No gallops present (Cardio), No clicks present (Cardio), No murmurs present (Cardio) and Peripheral pulses 2+ throughout RATE: regular rate RHYTHM: regular rhythm HEART SOUNDS: S1 normal heart sound present and S2 normal heart sound present PERIPHERAL PULSES: Peripheral pulses 2+ throughout GI: COMMON NORMALS: Normal to inspection, nondistended, normoactive bowel sounds present, Soft to palpation, non-tender and no masses PALPATION: Yes Soft to palpation : COMMON NORMALS: Yes no CVA tenderness BLADDER/KIDNEY EXAM: Yes no CVA tenderness Back/Pelvis: COMMON NORMALS: no CVA tenderness LUMBAR SPINE/LOWER BACK: Yes pain with ROM, No lumbar spinal tenderness and Yes paraspinal muscle tenderness Extremity: NARRATIVE EXTREMITY EXAM: Patient has some mild tenderness upon palpation of the lateral aspect of left hip. No other remarkable exam findings. Pedal pulse 2+ distally on left leg. GENERAL: Yes normal exam except as noted Neuro: COMMON NORMALS: patient oriented x3 and moves all extremities SENSORIUM/ORIENTATION: Yes alert Skin: GENERAL SKIN EXAM: dry skin Course Vital Signs: Vital signs: Vital Signs Temperature 97.3 F L 04/07/20 15:51 Pulse Rate 71 04/07/20 15:51 Respiratory Rate 18 04/07/20 15:51 Blood Pressure 122/85 04/07/20 15:51 Pulse Oximetry 94 04/07/20 15:51 MDM - Fall MDM Narrative: Medical decision making narrative: Patient is a 54-year-old female who comes to the ED with acute on chronic lower back pain after having a fall. Patient says she landed on left hip. She has pain rating down left lower extremity. Left hip x-ray showed no acute fractures or findings. Patient was given Toradol, Solu-Medrol and Norflex ordered in the ED. She was sent home with a prescription for meloxicam, Medrol Dosepak and methocarbamol. Follow-up with PCP in 7 to 10 days. Return to ED precautions given. Patient understood and agreed with plan. Lab Data: Attestation: I reviewed the patient's lab results. Lab results narrative: Left hip x-ray-no acute fractures or findings. Discharge Plan Discharge Patient Disposition: Home Clinical Impression: Lumbar radiculopathy Condition: Stable Prescriptions: New Medrol (Vasquez) 4 mg tablets,dose pack See Rx Instructions .ROUTE .COMPLEX Qty: 21 RF: 0 methocarbamol 750 mg tablet 750 mg PO Q8H Qty: 20 RF: 0 meloxicam 7.5 mg tablet 7.5 mg PO DAILY Qty: 30 RF: 0 No Action sumatriptan succinate [Imitrex] 100 mg tablet 100 mg PO Q2H PRN (Reason: Migraine Headache) RF: 0 melatonin 5 mg capsule PO .HS PRN (Reason: sleep) RF: 0 fluoxetine 40 mg capsule 80 mg PO DAILY Qty: 60 RF: 2 trazodone 100 mg tablet 200 mg PO BEDTIME Qty: 60 RF: 2 desvenlafaxine succinate [Pristiq] 25 mg tablet extended release 24 hr 25 mg PO DAILY Qty: 30 RF: 2 albuterol sulfate 90 mcg/actuation aerosol powdr breath activated 2 inh INHALATION Q4H PRN (Reason: Shortness Of Breath) RF: 0 atorvastatin [Lipitor] 20 mg tablet 20 mg PO DAILY RF: 0 fluticasone propionate [Flonase Allergy Relief] 50 mcg/actuation spray,suspension 1 spray INTRANASAL BID PRN (Reason: UNKNOWN) RF: 0 celecoxib [Celebrex] 50 mg capsule 100 mg PO BID RF: 0 zonisamide 100 mg capsule 500 mg PO BEDTIME RF: 0 oxybutynin chloride 15 mg tablet extended release 24hr 15 mg PO DAILY Qty: 30 RF: 12 pantoprazole [Protonix] 20 mg Tablet,Delayed Release (Dr/Ec) 20 mg PO BID RF: 0 spironolactone 50 mg Tablet 50 mg PO DAILY RF: 0 ondansetron 4 mg tablet,disintegrating 4 mg PO Q6H PRN (Reason: nausea and vomiting) Qty: 14 RF: 0 Discharge Orders: Discharge ED (Routine); Ordered 04/07/20 Ordered By: Reese Hernandez Referrals: PORTER LANIER, HEAD SCREEN WORKER [Primary Care Provider] - Discharge Diet: Regular Discharge Activity: Increase activity as tolerated Patient Instructions: Lumbar Radiculopathy (ED) Activity Restrictions/Additional Instructions: Follow-up with medical provider as directed in 7 to 10 days for reevaluation. Take medications as prescribed. Remember methocarbamol as a muscle relaxer and can cause some drowsiness as a side effect so take at night before bed. You are currently on a prescription for Celecoxib, which is similar to prescribed meloxicam. Do not take both at the same time choose 1 medication for pain daily. Apply heat or cold pack on back to help with symptoms and stretch lower back daily. Return to the ER or your medical provider if condition worsens. Please read and understand discharge instructions. If any questions, please ask. Coding Level of Care Code ED Healthcare Liaison for Kwasi Fwbrigitte Exam Comprehensive
--- NOTE | 2020-04-07 17:39 | XRR_ITS ---
PROCEDURE INFORMATION: Exam: XR Left Hip with Pelvis when Performed Exam date and time: 04/07/2020 5:49 PM Age: 54 years old Clinical indication: Pain and injury or trauma; Fall; Blunt trauma (contusions or hematomas); Hip pain; Left hip; Injury date: 04/07/20; Additional info: Fall with hip pain TECHNIQUE: Imaging protocol: XR Left hip with pelvis when performed. Views: 2 or 3 views. COMPARISON: CT abdomen pelvis w con* [id number] 10/29/2019 9:02 PM FINDINGS: Bones/joints: Evaluation is limited by patient body habitus. No gross evidence for acute bony injury in the symptomatic left hip.If an occult fracture is of clinical concern, CT correlation can be performed. Degenerative change. Soft tissues: Soft tissue enlargement and multiple skin folds. Calcification at the gluteal muscle attachment sites. XR/XR hip LT 2-3V wo/w pel* [id number] IMPRESSION: No gross evidence for acute bony injury in the symptomatic left hip, see comments above.
[2020-04-07] MEDS: orphenadrine 30 mg/mL Inj 2 mL 60 MG IM (17:57)
[2020-04-07] MEDS: ketorolac 60 mg/2 mL INJ IM (17:57)
== END 2020-04-07 18:44 | disposition home or self-care (01) ==
PROVIDERS: Emergency Provider Physician Assistant; PCP Nurse Practitioner Family
DX: M54.16 Radiculopathy, lumbar region (principal)
CPT/HCPCS: 12345; 73502; 96372; 99281; 99283; J1885; J2360; J2930

== ENCOUNTER 2020-04-23 10:53 | Outpatient (CLI) | payer MEDICAID, SELFPAY ==
--- NOTE | 2020-04-23 11:02 | XR_ITS ---
WS: [id number] KUB, 04/23/2020 Clinical Data: URETERAL STONE Comparison: KUB, 01/18/2020 Findings: No abnormal intraabdominal masses or calcifications are seen. There is no dilatated small bowel or ev idence of obstruction. Right ureteral stent has been removed. Degenerative changes of the lumbar vertebral bodies are modera te. There is a large amount of fecal material throughout the colon. There are clips in the right uppe r quadrant from a cholecystectomy. XR/XR KUB [id number] Impression: Negative KUB.
--- NOTE | 2020-04-23 11:02 | US_ITS ---
WS: [id number] RENAL ULTRASOUND HISTORY: HYDRONEPHROSIS OF KIDNEY COMPARISON: 12/12/2019 TECHNIQUE: 2-D and color Doppler imaging of the kidney submitted. Right kidney: 11.7 cm x 4.6 cm x 4.7 cm. Normal echogenicity with no hydronephrosis or mass. No residual hydronephrosis. Left kidney: 9.1 cm x 4.7 cm x 4.4 cm. Normal echogenicity with no hydronephrosis or mass. Aorta: Normal. Urinary Bladder: Nondistended. US/US renal BI* [id number] IMPRESSION: 1. No residual hydronephrosis RIGHT kidney. 2. Negative bilateral renal ultrasound.
== END 2020-04-23 10:54 | disposition home or self-care (01) ==
PROVIDERS: Visit Provider Urology
DX: N20.1 Calculus of ureter (principal); N13.30 Unspecified hydronephrosis
CPT/HCPCS: 74018; 76770; 81003

== ENCOUNTER → 2020-05-20 11:22 | Outpatient (BNVA) | payer MEDICAID, SELFPAY | PROVIDERS: PCP Nurse Practitioner Family; Visit Provider Psychiatry & Neurology Psychiatry | DX: F43.12 Post-traumatic stress disorder, chronic (principal); F60.3 Borderline personality disorder; F33.2 Major depressive disorder, recurrent severe without psychotic features | CPT/HCPCS: 99214 ==

== ENCOUNTER → 2020-07-21 13:06 | Outpatient (BNVA) | payer MEDICAID, SELFPAY | PROVIDERS: PCP Nurse Practitioner Family; Visit Provider Social Worker Clinical | DX: F43.12 Post-traumatic stress disorder, chronic (principal); F60.3 Borderline personality disorder; F33.2 Major depressive disorder, recurrent severe without psychotic features | CPT/HCPCS: 90834 ==

== ENCOUNTER 2020-07-29 08:04 | Emergency (ER) | payer MEDICAID, SELFPAY ==
[2020-07-29 08:16] VITALS: BP 131/85; PULSE 76; RESP 16; TEMP 36.5; O2SAT 97; BMI 32.5
[2020-07-29 08:20] VITALS: BP 131/85; PULSE 75; RESP 18; O2SAT 98
--- NOTE | 2020-07-29 08:23 | PC.NURSE ---
Dr Biggs in room , completing assessment. Asking for lotion for dry skin on legs
--- NOTE | 2020-07-29 08:25 | ED_ITS ---
HPI - Back Pain/Injury General: Chief Complaint: Back Pain/Injury Stated Complaint: back pain, lower left groin pain Time Seen by Provider: 07/29/20 08:06 History of Present Illness: HPI Narrative: 54-year-old female presents emergency room with complaint of back pain left lower nominal/groin pain she has had this for the last couple of days is relieved slightly by bowel movements and then will recur. Radiates around into the area of the SI joint on the left as well. She denies dysuria urgency or frequency denies any hematochezia or melena. She has had a couple of loose stools as well. She not had any rash. No history of any hernia no known diverticulitis. She denies any hematuria as well. No vaginal itching burning or discharge or bleeding. MD elicited complaint: back pain Onset (ago): day(s) Timing: intermittent Severity: moderate Quality: aching Location: sacrum and left lower back Radiation: groin Exacerbating factors: none Relieving factors: none Associated symptoms: Reports abdominal pain and change in bowel habits; Deny arthralgias, chills, difficulty walking, dysuria, fatigue, fecal incontinence, fever(s), hematuria, myalgias, nausea, numbness, syncope, tingling/numbness/burning, urinary frequency, urinary urgency, vomiting or weakness Review of Systems Const: Denies: fever(s), chills or fatigue ENMT: Denies: throat pain, ear or mastoid pain, nasal discharge or nasal congestion Card: Denies: syncope Resp: Denies: dyspnea, productive cough or non-productive cough GI: Reports: abdominal pain and change in bowel habits; Denies: nausea, vomiting or fecal incontinence : Denies: dysuria, urinary urgency or hematuria Skin/Breast: Denies: rash or pruritus Neuro: Denies: difficulty walking PFSH ED PFSH: Medical History Chronic constipation Hydronephrosis of right kidney Sleep apnea with use of continuous positive airway pressure (CPAP) Urgency incontinence Urolithiasis Surgical History History of appendectomy Hx of cholecystectomy Status post laser lithotripsy of ureteral calculus Tubal ligation status Family History Brother Diabetes Father , unknown No problems noted. Other Cancer Social History Smoking and tobacco status: never smoked Second hand smoke exposure: No Alcohol intake: never Adopted: No Caregiver/support person: No Lives independently: No Marital status: Current occupational status: employed History of recent travel: No Current gender identity: Female Physical Exam Const: COMMON NORMALS: no acute distress GENERAL APPEARANCE: cooperative and comfortable ORIENTATION/CONSCIOUSNESS: Yes awake, Yes oriented to person, Yes oriented to place and Yes oriented to time HENMT: COMMON NORMALS: normocephalic, atraumatic, hearing grossly normal bilaterally, external ears normal, EAC's normal, TM's normal bilaterally, Normal nasal mucous membranes and turbinates present, moist oral mucous membranes and oropharynx normal HEAD & SCALP: normocephalic and atraumatic NOSE: Normal nasal mucous membranes and turbinates present EXTERNAL EAR: Yes external ears normal EXTERNAL AUDITORY CANAL: EAC's normal TYMPANIC MEMBRANE: TM's normal bilaterally Eye: COMMON NORMALS: Equal, round and reactive pupils present, EOMs intact bilaterally, conjunctivae normal and no scleral icterus CONJUNCTIVA: Yes conjunctivae normal PUPIL: Yes Equal, round and reactive pupils present Neck/C-Spine: COMMON NORMALS: full ROM, no lymphadenopathy, supple and no JVD Lymph: LYMPHATIC: no lymphadenopathy noted and no lymphedema noted Resp: COMMON NORMALS: normal respiratory effort, No retractions, No use of ac cessory muscles and clear to auscultation bilaterally AUSCULTATION: clear to auscultation bilaterally Cardio: COMMON NORMALS: no JVD, regular rate, regular rhythm and No murmurs present (Cardio) RATE: regular rate RHYTHM: regular rhythm GI: COMMON NORMALS: Soft to palpation and No hepatosplenomegaly present AUSCULTATION: Yes normoactive bowel sounds PALPATION: Yes Soft to palpation, No Tenderness to palpation present (GI), No Guarding due to palpation present (GI) and Yes No hepatosplenomegaly present Extremity: COMMON NORMALS: normal to inspection, capillary refill normal, no clubbing, cyanosis or edema, no calf tenderness and no pedal edema Neuro: SENSORIUM/ORIENTATION: Yes oriented to person, Yes oriented to place and Yes oriented to time Skin: COMMON NORMALS: no rashes or lesions noted GENERAL SKIN EXAM: no rashes or lesions noted Course Vital Signs: Vital signs: Vital Signs Temperature 97.8 F 07/29/20 09:34 Pulse Rate 66 07/29/20 09:34 Respiratory Rate 18 07/29/20 09:34 Blood Pressure 143/97 07/29/20 09:34 Pulse Oximetry 96 07/29/20 09:34 MDM - Back Pain/Injury MDM Narrative: Medical decision making narrative: Exam and labs unremarkable. Patient is anxious to leave she states she has doctor's appointment in [place] and needs to leave to her either on time [facility] her Celebrex follow-up as needed if not improving follow-up with her primary care doctor. Lab Data: Labs: Lab Results 07/29/20 07/29/20 07/29/20 Range/Units 08:31 08:33 08:33 WBC 6.1 (4.0-10.0) 10^3/ uL RBC 4.89 (4.1-5.3) 10^6/u L Hgb 14.2 (11.5-15.3) g/dL Hct 45.0 (37.0-47.0) % MCV 92.0 (81-99) fL MCH 29.0 (28.0-34.0) pg MCHC 31.6 (30.0-36.0) g/dL RDW 12.6 (12.1-15.1) % Plt Count 361 (130-400) 10^3/c mm MPV 8.9 (7.4-10.4) fL Neut % (Auto) 60.4 % Lymph % (Auto) 25.4 % [place] % (Auto) 6.8 % Eos % (Auto) 6.1 % Baso % (Auto) 1.0 % Neut # (Auto) 3.67 (1.8-7.7) 10^3/u L Lymph # (Auto) 1.5 (0.8-4.8) 10^3/u L [place] # (Auto) 0.4 (0.2-0.9) 10^3/u L Eos # (Auto) 0.4 (0.0-0.8) 10^3/u L Baso # (Auto) 0.1 (0.0-0.1) 10^3/u L Nucleated RBC % (a uto) 0 % Nucleated RBCs # 0.0 /100WBC Sodium 141 (136-145) mmol/L Potassium 3.9 (3.5-5.1) mmol/L Chloride 105 (98-107) mmol/L Carbon Dioxide 26 (22-29) mmol/L Anion Gap 13.9 (5-19) BUN 15 (6-20) mg/dL Creatinine 0.8 (0.5-0.9) mg/dL GFR Calculation 75.0 L (90-130) mL/min Glucose 86 (65-115) mg/dL Calculated Osmolal ity 292 (285-295) mOsm/k g Calcium 9.5 (8.5-10.5) mg/dL Total Bilirubin 0.4 (0.15-1.2) mg/dL AST 27 (0-32) U/L ALT 26 (0-33) U/L Alkaline Phosphata se 128 H (35-105) IU/L Total Protein 7.5 (6.6-8.7) g/dL Albumin 4.6 (3.5-5.2) g/dL Globulin 2.9 (1.3-4.6) g/dL Urine Color Yellow (Yellow) Urine Appearance Clear (CLEAR) Urine pH 5 (5-7) Ur Specific Gravit y 1.020 (1.005-1.030) Urine Protein Neg (Negative) Urine Glucose (UA) Norm (Normal) Urine Ketones 1+ H (Negative) Urine Blood Neg (Negative) Urine Nitrate Negative (Negative) Urine Bilirubin 1+ H (Negative) Urine Urobilinogen 1 H (Negative) mg/dL Ur Leukocyte Bonnie ase Negative (Negative) Discharge Plan Discharge Patient Disposition: Home Clinical Impression: Sacroiliac joint pain Condition: Stable Prescriptions: New diclofenac sodium 75 mg tablet,delayed release (DR/EC) 75 mg PO Q12H PRN (Reason: pain) Qty: 20 RF: 0 Held celecoxib [Celebrex] 50 mg capsule 100 mg PO BID RF: 0 Hold Instructions: Resume on 08/08/20. No Action sumatriptan succinate [Imitrex] 100 mg tablet 100 mg PO Q2H PRN (Reason: Migraine Headache) RF: 0 melatonin 5 mg capsule PO .HS PRN (Reason: sleep) RF: 0 fluoxetine 40 mg capsule 80 mg PO DAILY Qty: 60 RF: 2 trazodone 100 mg tablet 200 mg PO BEDTIME Qty: 60 RF: 2 buspirone 5 mg tablet 5 mg PO TID Qty: 90 RF: 2 albuterol sulfate 90 mcg/actuation aerosol powdr breath activated 2 inh INHALATION Q4H PRN (Reason: Shortness Of Breath) RF: 0 atorvastatin [Lipitor] 20 mg tablet 20 mg PO DAILY RF: 0 fluticasone propionate [Flonase Allergy Relief] 50 mcg/actuation spray,suspension 1 spray INTRANASAL BID PRN (Reason: UNKNOWN) RF: 0 oxybutynin chloride 15 mg tablet extended release 24hr 15 mg PO DAILY Qty: 30 RF: 12 pantoprazole [Protonix] 20 mg Tablet,Delayed Release (Dr/Ec) 20 mg PO BID RF: 0 spironolactone 50 mg Tablet 50 mg PO DAILY RF: 0 ondansetron 4 mg tablet,disintegrating 4 mg PO Q6H PRN (Reason: nausea and vomiting) Qty: 14 RF: 0 Discharge Orders: Discharge ED (Routine); Ordered 07/29/20 Ordered By: Terence Biggs Referrals: Esther Chaney, EARTH MOVING MACHINE OPERATOR [Primary Care Provider] - Discharge Diet: Usual diet Discharge Activity: Increase activity as tolerated Patient Instructions: Opioid Safety Coding Level of Care Code ED Medical Physics Teacher for Kwasi Fwd Exam Comprehensive
--- NOTE | 2020-07-29 08:25 | CT_ITS ---
WS: [id number] CT ABDOMEN AND PELVIS WITH CONTRAST HISTORY: LEFT flank and groin pain. TECHNIQUE: Imaging performed of the abdomen and pelvis with IV contrast. Single phase imaging of the abdomen. Coronal and sagittal reformats are submitted. All CT scans at [facility] use at least one of these dose optimization techniques: automated exposure control; mA and/or kV adjustment per patient size (includes targeted exams where dose is matched to clinical indication); or iterativ e reconstruction. IV CONTRAST: Omnipaque 300; 95 mL IV. Oral contrast: No DLP: 1859.4 mGy.cm COMPARISON: 10/29/2019 Lower thorax: Lung bases are clear. Heart is normal size. No hiatal hernia. Liver/biliary system: Normal size with no intrahepatic dilatation. Gallbladder: Status post cholecystectomy. Pancreas: Normal size pancreas and pancreatic duct. No adjacent inflammation. Spleen: Normal size spleen with several granulomata. Adrenal glands: Normal RIGHT adrenal gland. LEFT adrenal gland contains fat containing mass consisten t with an adrenal myelolipoma measuring 7 mm. Right kidney: Normal. Left kidney: Normal. Aorta: Normal. Lymphadenopathy: None. Free fluid: None. GI tract: Prior appendectomy. There is moderate fecal retention and constipation and increased air wi thin the colon. No obstruction. There are numerous small diverticula in the distal colon with no evid ence for an acute inflammation. Abdominal wall: Unremarkable abdominal wall. No hernia. Pelvis: Atrophic uterus as expected. No pelvic mass. Urinary bladder is not distended. Bones: Marked straightening of the normal lordosis. CT/CT abdomen pelvis w con* [id number] IMPRESSION: 1. No renal or ureteral calcifications or obstruction. 2. Prior cholecystectomy and appendectomy. 3. Moderate constipation. 4. Numerous diverticula in the distal colon without acute diverticulitis. 5. Stable LEFT adrenal myelolipoma.
[2020-07-29 08:33] LABS: Add Urine Microscopic? NO; Charge for UA Resulting for Rev
[2020-07-29 08:41] LABS: Basophils # 0.1 10^3/uL (0.0-0.1); Eosinophils # 0.4 10^3/uL (0.0-0.8); Eosinophils % 6.1 %; Hemoglobin 14.2 g/dL (11.5-15.3); Lymphocytes # 1.5 10^3/uL (0.8-4.8); Lymphocytes % 25.4 %; Mean Corpuscular HGB Conc 31.6 g/dL (30.0-36.0); Mean Platelet Volume 8.9 fL (7.4-10.4); Monocytes # 0.4 10^3/uL (0.2-0.9); Monocytes % 6.8 %; Neutrophils # 3.67 10^3/uL (1.8-7.7); Neutrophils % 60.4 %; Nucleated Red Blood Cells % 0 %; Platelet Count 361 10^3/cmm (130-400); Red Blood Count 4.89 10^6/uL (4.1-5.3); Red Cell Distribution Width 12.6 % (12.1-15.1); White Blood Count 6.1 10^3/uL (4.0-10.0)
[2020-07-29] MEDS: iohexol 300 mg/mL 100 mL Btl IV (08:41)
[2020-07-29 08:42] LABS: Bilirubin Urine 1+ (Negative); Blood Urine Neg (Negative); Glucose Urine UA Norm (Normal); Ketones Urine 1+ (Negative); Leukocyte Esterase Urine Negative (Negative); Nitrate Urine Negative (Negative); Protein Urine Neg (Negative); Urine Appearance Clear (CLEAR); Urine Color Yellow (Yellow); Urobilinogen Urine 1 mg/dL (Negative); pH Urine 5 (5-7)
[2020-07-29 09:02] LABS: Alanine Aminotransferase 26 U/L (0-33); Albumin Level 4.6 g/dL (3.5-5.2); Alkaline Phosphatase 128 IU/L (35-105); Anion Gap 13.9 (5-19); Aspartate Amino Transferase 27 U/L (0-32); Blood Urea Nitrogen 15 mg/dL (6-20); Calcium 9.5 mg/dL (8.5-10.5); Carbon Dioxide 26 mmol/L (22-29); Chloride 105 mmol/L (98-107); Globulin 2.9 g/dL (1.3-4.6); Glucose 86 mg/dL (65-115); Osmolality Calculated 292 mOsm/kg (285-295); Potassium 3.9 mmol/L (3.5-5.1); Sodium 141 mmol/L (136-145); Total Bilirubin 0.4 mg/dL (0.15-1.2); Total Protein 7.5 g/dL (6.6-8.7)
[2020-07-29 09:34] VITALS: BP 143/97; PULSE 66; RESP 18; TEMP 36.6; O2SAT 96
== END 2020-07-29 09:37 | disposition home or self-care (01) ==
PROVIDERS: Emergency Provider Family Medicine; PCP Nurse Practitioner Family
DX: M53.3 Sacrococcygeal disorders, not elsewhere classified (principal)
CPT/HCPCS: 74177; 80053; 81003; 85025; 99283; Q9967

== ENCOUNTER → 2020-08-19 12:42 | Outpatient (BNVA) | payer MEDICAID, SELFPAY | PROVIDERS: PCP Nurse Practitioner Family; Visit Provider Psychiatry & Neurology Psychiatry | DX: F43.12 Post-traumatic stress disorder, chronic (principal); F60.3 Borderline personality disorder; F33.2 Major depressive disorder, recurrent severe without psychotic features | CPT/HCPCS: 99214 ==

== ENCOUNTER 2020-10-02 09:58 | Outpatient (CLI) | payer MEDICAID, SELFPAY ==
--- NOTE | 2020-10-02 10:17 | XR_ITS ---
WS: [id number] Chest 2 views, 10/02/2020 Clinical Data: COUGH Comparison: PA and lateral chest, 03/06/2020. Findings: No nodules, masses or effusions are seen. The heart is normal. The pulmonary vascularity is not increased. No pneumonia or pneumothorax is seen. There is slight elevation of the right diaphrag m. There are clips in the right upper quadrant from a cholecystectomy. XR/XR chest 2V* [id number] Impression: Negative chest.
== END 2020-10-02 09:59 | disposition home or self-care (01) ==
PROVIDERS: PCP Nurse Practitioner Family; Visit Provider Nurse Practitioner Family
DX: R05 Cough (principal)
CPT/HCPCS: 71046

== ENCOUNTER 2020-10-23 08:54 | Emergency (ER) | payer MEDICAID, SELFPAY ==
[2020-10-23 09:16] VITALS: BP 125/87; PULSE 70; RESP 16; TEMP 36.6; O2SAT 97; BMI 33.6
[2020-10-23 09:21] VITALS: O2SAT 97
--- NOTE | 2020-10-23 09:27 | ED_ITS ---
HPI - Back Pain/Injury General: Chief Complaint: Back Pain/Injury Stated Complaint: acute on chronic back pain Time Seen by Provider: 10/23/20 09:25 History of Present Illness: HPI Narrative: Patient is a 55-year-old female comes to the ED with acute on chronic back pain. This morning patient was up walking around and she has her usual lower back pain but then felt a sudden pulling type tearing pain in her back with accompanied pain and tingling down left leg. Patient still able to ambulate on leg. Patient sees [facility] in [facility]. Patient says she takes Celebrex currently for pain. Denies any other symptoms. Associated symptoms: Deny abdominal pain, chills, dysuria, fatigue, fever(s), hematuria, nausea or vomiting Review of Systems Const: Denies: fever(s), chills or fatigue Eyes: Denies: change in vision or eye discomfort ENMT: Denies: throat pain, odynophagia, nasal discharge or nasal congestion Card: Denies: chest pain, palpitations, edema, swelling of feet/ankles, dyspnea on exertion or orthopnea Resp: Denies: dyspnea, productive cough or non-productive cough GI: Denies: abdominal pain, nausea, vomiting, diarrhea, constipation or hematochezia : Denies: flank pain, dysuria or hematuria Musc: Reports: back pain; Denies: neck pain or extremity swelling Skin/Breast: Denies: rash or new lesions Neuro: Denies: headache(s), numbness in extremities or weakness in extremities PFS ED PFSH: Medical History Chronic constipation Hydronephrosis of right kidney Sleep apnea with use of continuous positive airway pressure (CPAP) Urgency incontinence Urolithiasis Surgical History History of appendectomy Hx of cholecystectomy Status post laser lithotripsy of ureteral calculus Tubal ligation status Family History Brother Diabetes Father , unknown No problems noted. Other Cancer Social History Smoking and tobacco status: never smoked Second hand smoke exposure: No Alcohol intake: never Adopted: No Caregiver/support person: No Lives independently: No Marital status: Current occupational status: employed History of recent travel: No Current gender identity: Female Physical Exam Narrative: EXAM NARRATIVE: Patient appears in no acute distress or pain. She is able to get out of her chair and walk in the room without any signs of pain or discomfort. Const: COMMON NORMALS: no acute distress, patient oriented x3 and alert GENERAL APPEARANCE: cooperative and comfortable HENMT: COMMON NORMALS: normocephalic HEAD & SCALP: normocephalic MOUTH: Normal oral and palatal mucosa present THROAT: posterior oropharynx normal and uvula midline Eye: COMMON NORMALS: Equal, round and reactive pupils present PUPIL: Yes Equal, round and reactive pupils present Neck/C-Spine: COMMON NORMALS: supple GENERAL: Yes normal visual inspection Resp: COMMON NORMALS: normal respiratory effort, No retractions, No use of accessory muscles and clear to auscultation bilaterally AUSCULTATION: clear to auscultation bilaterally Cardio: COMMON NORMALS: regular rate, regular rhythm, S1 normal heart sound present, S2 normal heart sound present, No gallops present (Cardio), No clicks present (Cardio), No murmurs present (Cardio) and Peripheral pulses 2+ throughout RATE: regular rate RHYTHM: regular rhythm HEART SOUNDS: S1 normal heart sound present and S2 normal heart sound present PERIPHERAL PULSES: Peripheral pulses 2+ throughout GI: COMMON NORMALS: Normal to inspection, nondistended, normoactive bowel sounds present, Soft to palpation, non-tender and no masses PALPATION: Yes Soft to palpation : COMMON NORMALS: Yes no CVA tenderness BLADDER/KIDNEY EXAM: Yes no CVA tenderness Back/Pelvis: COMMON NORMALS: no CVA tenderness LUMBAR SPINE/LOWER BACK: Yes paraspinal muscle tenderness Lumbar paraspinal muscle tenderness: bilateral Extremity: COMMON NORMALS: normal to inspection Neuro: COMMON NORMALS: patient oriented x3 and moves all extremities SENSORIUM/ORIENTATION: Yes alert Skin: GENERAL SKIN EXAM: dry skin Course Vital Signs: Vital signs: Vital Signs Temperature 97.9 F 10/23/20 09:16 Pulse Rate 70 10/23/20 09:16 Respiratory Rate 16 10/23/20 09:16 Blood Pressure 125/87 10/23/20 09:16 Pulse Oximetry 97 10/23/20 09:21 MDM - Back Pain/Injury MDM Narrative: Medical decision making narrative: Patient is a 55-year-old female comes to the ED with acute on chronic lower back pain. Patient currently sees [facility] in [place]. She denies any injury, fall, trauma to cause acute pain. Patient appears in no acute distress and is able to get up out of chair and walk with no outward signs of any pain. Patient diagnosed with lumbar radiculopathy and discharged home with prescription for muscle relaxer, Medrol Dosepak and I told her to take her Celebrex as previously prescribed. I told her to follow-up with her pain management clinic as needed. Discharge Plan Discharge Patient Disposition: Home Clinical Impression: Lumbar radiculopathy Chronic back pain Qualifiers: Back pain location: low back pain Back pain laterality: bilateral Sciatica presence: with sciatica Sciatica laterality: sciatica of left side Qualified Code(s): M54.42 - Lumbago with sciatica, left side Condition: Stable Prescriptions: New Medrol (Vasquez) 4 mg tablets,dose pack See Rx Instructions .ROUTE .COMPLEX Qty: 21 RF: 0 methocarbamol 750 mg tablet 750 mg PO Q8H PRN (Reason: muscle pain) Qty: 15 RF: 0 No Action sumatriptan succinate [Imitrex] 100 mg tablet 100 mg PO Q2H PRN (Reason: Migraine Headache) RF: 0 melatonin 5 mg capsule PO .HS PRN (Reason: sleep) RF: 0 albuterol sulfate 90 mcg/actuation aerosol powdr breath activated 2 inh INHALATION Q4H PRN (Reason: Shortness Of Breath) RF: 0 atorvastatin [Lipitor] 20 mg tablet 20 mg PO DAILY RF: 0 fluticasone propionate [Flonase Allergy Relief] 50 mcg/actuation spray,suspension 1 spray INTRANASAL BID PRN (Reason: UNKNOWN) RF: 0 celecoxib [Celebrex] 50 mg capsule 100 mg PO BID RF: 0 Hold Instructions: Resume on 08/08/20. zonisamide 100 mg capsule 500 mg PO .HS RF: 0 fluoxetine 40 mg capsule 80 mg PO DAILY Qty: 60 RF: 2 trazodone 100 mg tablet 200 mg PO BEDTIME Qty: 60 RF: 2 topiramate 50 mg tablet 50 mg PO BID Qty: 60 RF: 2 oxybutynin chloride 15 mg tablet extended release 24hr 15 mg PO DAILY Qty: 30 RF: 12 diclofenac sodium 75 mg tablet,delayed release (DR/EC) 75 mg PO Q12H PRN (Reason: pain) Qty: 20 RF: 0 pantoprazole [Protonix] 20 mg Tablet,Delayed Release (Dr/Ec) 20 mg PO BID RF: 0 spironolactone 50 mg Tablet 50 mg PO DAILY RF: 0 ondansetron 4 mg tablet,disintegrating 4 mg PO Q6H PRN (Reason: nausea and vomiting) Qty: 14 RF: 0 Discharge Orders: Discharge ED (Routine); Ordered 10/23/20 Ordered By: Reese Hernandez Referrals: Esther Chaney FNP [Primary Care Provider] - Discharge Diet: Regular Discharge Activity: Increase activity as tolerated Patient Instructions: Lumbar Radiculopathy (ED) Activity Restrictions/Additional Instructions: Follow-up with medical provider as directed in 7 to 10 days for reevaluation. Take medications as prescribed. The prescribed muscle relaxer can cause some drowsiness so take at night before bed. Apply cold pack or heat on lower back to help with symptoms. perform stretching exercises for lower back daily. Continue taking your Celebrex for pain. Return to the ER or your medical provider if condition worsens. Please read and understand discharge instructions. Thank you for choosing [facility] for your healthcare needs today. Please realize this is an emergency room and that we are providing you with a medical screening exam and this may not be complete and all inclusive of all the testing and or work up that you may need to determine your ailment or severity of your illness. It is very important that you follow up as instructed or that you return to the Emergency Department should you have concerns or if your condition changes or worsens in any way. Coding Level of Care Code ED Shafting Cleaner for Kwasi Arzola Exam Comprehensive
[2020-10-23] MEDS: ketorolac 60 mg/2 mL INJ IM (09:56)
[2020-10-23] MEDS: dexamethasone 10 mg/mL INJ IM (09:56)
[2020-10-23 10:02] VITALS: BP 130/79; PULSE 78; RESP 18; O2SAT 98
== END 2020-10-23 10:04 | disposition home or self-care (01) ==
PROVIDERS: Emergency Provider Physician Assistant; PCP Nurse Practitioner Family
DX: M54.42 Lumbago with sciatica, left side (principal)
CPT/HCPCS: 96372; 99283; J1100; J1885

== ENCOUNTER → 2020-11-04 14:35 | Outpatient (BNVA) | payer MEDICAID, SELFPAY | PROVIDERS: PCP Nurse Practitioner Family; Visit Provider Social Worker Clinical | DX: F33.2 Major depressive disorder, recurrent severe without psychotic features (principal); F60.3 Borderline personality disorder | CPT/HCPCS: 90834 ==

== ENCOUNTER → 2020-11-13 09:48 | Outpatient (BNVA) | payer MEDICAID, SELFPAY | PROVIDERS: PCP Nurse Practitioner Family; Visit Provider Psychiatry & Neurology Psychiatry | DX: F33.2 Major depressive disorder, recurrent severe without psychotic features (principal); F43.12 Post-traumatic stress disorder, chronic; F60.3 Borderline personality disorder | CPT/HCPCS: 99214 ==

== ENCOUNTER → 2020-11-18 14:22 | Outpatient (BNVA) | payer MEDICAID, SELFPAY | PROVIDERS: PCP Nurse Practitioner Family; Visit Provider Social Worker Clinical | DX: F60.3 Borderline personality disorder (principal); F43.12 Post-traumatic stress disorder, chronic | CPT/HCPCS: 90834 ==

== ENCOUNTER → 2020-12-02 14:41 | Outpatient (BNVA) | payer MEDICAID, SELFPAY | PROVIDERS: PCP Nurse Practitioner Family; Visit Provider Social Worker Clinical | DX: F60.3 Borderline personality disorder (principal); F33.2 Major depressive disorder, recurrent severe without psychotic features | CPT/HCPCS: 90834 ==

== ENCOUNTER → 2021-01-01 13:35 | Outpatient (BNVA) | payer MEDICAID, SELFPAY | PROVIDERS: PCP Nurse Practitioner Family; Visit Provider Counselor Professional | DX: F43.12 Post-traumatic stress disorder, chronic (principal); F33.2 Major depressive disorder, recurrent severe without psychotic features | CPT/HCPCS: 90834 ==

== ENCOUNTER → 2021-01-15 13:40 | Outpatient (BNVA) | payer MEDICAID, SELFPAY | PROVIDERS: PCP Nurse Practitioner Family; Visit Provider Counselor Professional | DX: F60.3 Borderline personality disorder (principal); F33.2 Major depressive disorder, recurrent severe without psychotic features; F41.1 Generalized anxiety disorder | CPT/HCPCS: 90834 ==

== ENCOUNTER 2021-01-20 11:22 | Outpatient (CLI) | payer MEDICAID, SELFPAY ==
--- NOTE | 2021-01-20 11:29 | MM_ITS ---
WS: [id number] BILATERAL DIGITAL SCREENING MAMMOGRAPHY WITH CAD CLINICAL INFORMATION: SCREENING HISTORY: Screening mammogram. No current complaints. COMPARISON: TECHNIQUE: Bilateral CC and MLO views. FINDINGS: Scattered fibroglandular densities bilaterally. No suspicious focal mass, asymmetry, calcifications, or architectural distortion. No evidence of malignancy. MM/[place] [id number] IMPRESSION: BI-RADS: 1-Negative FOLLOW UP: 1 Year Follow-up Recommend return to annual screening mammography.
== END 2021-01-20 11:23 | disposition home or self-care (01) ==
PROVIDERS: PCP Nurse Practitioner Family; Visit Provider Nurse Practitioner Family
DX: Z12.31 Encounter for screening mammogram for malignant neoplasm of breast (principal)
CPT/HCPCS: 77067

== ENCOUNTER → 2021-01-29 10:36 | Outpatient (BNVA) | payer MEDICAID, SELFPAY | PROVIDERS: PCP Nurse Practitioner Family; Visit Provider Counselor Professional | DX: F60.3 Borderline personality disorder (principal); F33.2 Major depressive disorder, recurrent severe without psychotic features | CPT/HCPCS: 90834 ==

== ENCOUNTER → 2021-02-12 13:08 | Outpatient (BNVA) | payer MEDICAID, SELFPAY | PROVIDERS: PCP Nurse Practitioner Family; Visit Provider Psychiatry & Neurology Psychiatry | DX: F43.12 Post-traumatic stress disorder, chronic (principal); F60.3 Borderline personality disorder; F33.2 Major depressive disorder, recurrent severe without psychotic features | CPT/HCPCS: 99213 ==

== ENCOUNTER → 2021-02-18 13:33 | Outpatient (BNVA) | payer MEDICAID, SELFPAY | PROVIDERS: PCP Nurse Practitioner Family; Visit Provider Counselor Professional | DX: F60.3 Borderline personality disorder (principal); F33.2 Major depressive disorder, recurrent severe without psychotic features | CPT/HCPCS: 90834 ==

== ENCOUNTER → 2021-02-23 14:50 | Outpatient (BNVA) | payer MEDICAID, SELFPAY | PROVIDERS: PCP Nurse Practitioner Family; Visit Provider Nurse Practitioner Family | DX: N39.41 Urge incontinence (principal) | CPT/HCPCS: 81003 ==

== ENCOUNTER → 2021-03-05 13:28 | Outpatient (BNVA) | payer MEDICAID, SELFPAY | PROVIDERS: PCP Nurse Practitioner Family; Visit Provider Nurse Practitioner Family | DX: N20.2 Calculus of kidney with calculus of ureter (principal); N39.41 Urge incontinence | CPT/HCPCS: 81003 ==

== ENCOUNTER → 2021-03-11 14:21 | Outpatient (BNVA) | payer MEDICAID, SELFPAY | PROVIDERS: PCP Nurse Practitioner Family; Referring Provider Dermatology; Visit Provider Podiatrist Foot & Ankle Surgery | DX: M79.672 Pain in left foot (principal) | CPT/HCPCS: 73630 ==

== ENCOUNTER → 2021-03-12 11:43 | Outpatient (BNVA) | payer MEDICAID, SELFPAY | PROVIDERS: PCP Nurse Practitioner Family; Visit Provider Counselor Professional | DX: F60.3 Borderline personality disorder (principal); F33.2 Major depressive disorder, recurrent severe without psychotic features | CPT/HCPCS: 90834 ==

== ENCOUNTER → 2021-04-08 13:46 | Outpatient (BNVA) | payer MEDICAID, SELFPAY | PROVIDERS: PCP Nurse Practitioner Family; Visit Provider Counselor Professional | DX: F60.3 Borderline personality disorder (principal); F33.2 Major depressive disorder, recurrent severe without psychotic features | CPT/HCPCS: 90834 ==

== ENCOUNTER → 2021-04-23 16:04 | Outpatient (BNVA) | payer MEDICAID, SELFPAY | PROVIDERS: PCP Nurse Practitioner Family; Visit Provider Counselor Professional | DX: F60.3 Borderline personality disorder (principal); F33.2 Major depressive disorder, recurrent severe without psychotic features | CPT/HCPCS: 90791 ==

== ENCOUNTER → 2021-05-21 08:34 | Outpatient (BNVA) | payer MEDICAID, SELFPAY | PROVIDERS: PCP Nurse Practitioner Family; Visit Provider Counselor Professional | DX: F60.3 Borderline personality disorder (principal); F33.2 Major depressive disorder, recurrent severe without psychotic features | CPT/HCPCS: 90834 ==

== ENCOUNTER → 2021-06-02 15:04 | Outpatient (BNVA) | payer MEDICAID, SELFPAY | PROVIDERS: PCP Nurse Practitioner Family; Visit Provider Orthopaedic Surgery | DX: M17.12 Unilateral primary osteoarthritis, left knee (principal) | CPT/HCPCS: 73560; 73565 ==

== ENCOUNTER 2021-06-04 06:00 | Outpatient (RCR) | payer MEDICAID, SELFPAY | END 2021-07-02 23:59 | disposition home or self-care (01) | LOC: SPT 06:00 | PROVIDERS: PCP Nurse Practitioner Family; Referring Provider Nurse Practitioner Family; Visit Provider Nurse Practitioner Family | DX: M05.9 Rheumatoid arthritis with rheumatoid factor, unspecified (principal); M54.50 Low back pain, unspecified | CPT/HCPCS: 97161 ==

== ENCOUNTER → 2021-06-04 13:34 | Outpatient (BNVA) | payer MEDICAID, SELFPAY | PROVIDERS: PCP Nurse Practitioner Family; Visit Provider Counselor Professional | DX: F60.3 Borderline personality disorder (principal); F33.2 Major depressive disorder, recurrent severe without psychotic features | CPT/HCPCS: 90834 ==

== ENCOUNTER → 2021-06-17 14:42 | Outpatient (BNVA) | payer MEDICAID, SELFPAY | PROVIDERS: PCP Nurse Practitioner Family; Visit Provider Psychiatry & Neurology Psychiatry | DX: F43.12 Post-traumatic stress disorder, chronic (principal); F60.3 Borderline personality disorder; F33.2 Major depressive disorder, recurrent severe without psychotic features; L60.3 Nail dystrophy | CPT/HCPCS: 99214 ==

== ENCOUNTER → 2021-06-18 07:48 | Outpatient (BNVA) | payer MEDICAID, SELFPAY | PROVIDERS: PCP Nurse Practitioner Family; Visit Provider Counselor Professional | DX: F60.3 Borderline personality disorder (principal); F33.2 Major depressive disorder, recurrent severe without psychotic features | CPT/HCPCS: 90834 ==

== ENCOUNTER → 2021-06-19 09:53 | Outpatient (BNVA) | payer MEDICAID, SELFPAY | PROVIDERS: PCP Nurse Practitioner Family; Visit Provider Surgery | DX: Z20.822 Contact with and (suspected) exposure to COVID-19 (principal) | CPT/HCPCS: 87635 ==

== ENCOUNTER 2021-06-24 07:43 | Day surgery (SDC) | payer MEDICAID, SELFPAY ==
[2021-06-22 12:13] VITALS: BMI 32.8
--- NOTE | 2021-06-24 08:05 | P.ANESASSM_ITS ---
Pre-Anesthetic Assessment Height/Weight: Height 1.6 m Weight 83.915 kg Preop Diagnosis: Refractory right ureteral calculus Operation Date: 06/24/21 09:45 Proposed Procedures p EGD [id number]/ [id number](Not Applicable) - Yrn Quintero MD s Colonoscopy(Not Applicable) - Yrn Quintero MD Familial anesthetic complications: None Was Beta Freedom taken within 24 hours: N/A Was Clonidine taken within 24 hours: N/A Social Tobacco and No alcohol Exam alert, oriented x 3, clear to auscultation bilaterally and regular rate & rhythm Airway Submandibular: within normal limits Cervical ROM: within normal limits Mallampati: Class II Pulmonary Chronic Obstructive Pulmonary Disease and Sleep Apnea GI Gastroesophageal Reflux Disease Metabolic Hyperlipidemia [facility] chronic pain/opioid Neuropsych Anxiety, Depression and Seizure Anesthetic Plan ASA status: 3 Anesthesia: MAC Medications/Allergies Home Medications Medication Instructions Recorded Confirmed Last Taken Type albuterol sulfate 90 mcg/actuation 2 inh INHALATION Q4H PRN 04/09/19 06/22/21 Unknown History breath activated powder inhaler atorvastatin 20 mg tablet (Lipitor) 20 mg PO DAILY tab 04/09/19 06/22/21 02/16/20 History fluticasone propionate 50 1 spray INTRANASAL BID PRN 04/09/19 06/22/21 10/29/19 History mcg/actuation nasal spray,suspension (Flonase Allergy Relief) pantoprazole 20 mg tablet,delayed 20 mg PO BID 07/11/19 06/22/21 02/17/20 History release (Protonix) spironolactone 50 mg tablet 50 mg PO DAILY 07/11/19 06/22/21 02/17/20 History ondansetron 4 mg disintegrating 4 mg PO Q6H PRN #14 tab 10/15/19 06/22/21 Unknown Rx tablet Custom Molded Orthotics #1 ea 05/20/21 06/22/21 Unknown Rx clopidogrel 75 mg tablet (Plavix) 75 mg PO DAILY 05/25/21 06/22/21 06/21/21 History zonisamide 100 mg capsule 400 mg PO .HS cap 05/25/21 06/22/21 Unknown History fluoxetine 40 mg capsule 80 mg PO DAILY #60 cap 06/17/21 06/22/21 Unknown Rx hydrocodone 5 mg-acetaminophen 325 1 tab PO BID 06/17/21 06/22/21 Unknown History mg tablet hydroxychloroquine 200 mg tablet 200 mg PO BID 06/17/21 06/22/21 Unknown History trazodone 100 mg tablet 200 mg PO BEDTIME #60 tab 06/17/21 06/22/21 Unknown Rx oxybutynin chloride 15 mg 15 mg PO DAILY 06/22/21 06/22/21 Unknown History tablet,extended release 24 hr Allergies Allergy/AdvReac Type Severity Reaction Status Date / Time oxycodone AdvReac Intermediate Itching Verified 06/17/21 14:52 [facility] Anesthesia Medical History Chronic constipation Hydronephrosis of right kidney Psychiatric care Sleep apnea with use of continuous positive airway pressure (CPAP) Urgency incontinence Urolithiasis Surgical History H/O tubal ligation History of appendectomy Hx of cholecystectomy Status post laser lithotripsy of ureteral calculus Family History Brother Diabetes Father , unknown No problems noted. Other Cancer Social History Smoking and tobacco status: never smoked Second hand smoke exposure: No Alcohol intake: never Adopted: No Caregiver/support person: No Lives independently: No Marital status: Current occupational status: employed History of recent travel: No Current gender identity: Female Data Anesthesia Cardiac Studies: No Data to Display
[2021-06-24 08:15] VITALS: BP 143/95; PULSE 84; RESP 18; TEMP 36.2; O2SAT 96
[2021-06-24] MEDS: sodium chloride 0.9% 1,000 ML 30 ML IV (08:23)
--- NOTE | 2021-06-24 09:20 | W.PM.OPSFHP ---
Same Day Surgery H&P Indication for Procedure/HPI DATE OF PROCEDURE: June 24, 2021 CHIEF COMPLAINT/INDICATIONFOR SURGICAL PROCEDURE: egd/colonoscopy PREOP DIAGNOSIS: diagnostic PLANNED PROCEDURE: Operation Date: 06/24/21 09:45 Proposed Procedures p EGD 08869/ [id number](Not Applicable) - Yrn Quintero MD s Colonoscopy(Not Applicable) - Yrn Quintero MD Medications/Allergies* Home Medications Medication Instructions Recorded Confirmed Type albuterol sulfate 90 mcg/actuation 2 inh INHALATION Q4H PRN 04/09/19 06/24/21 History breath activated powder inhaler atorvastatin 20 mg tablet (Lipitor) 20 mg PO DAILY tab 04/09/19 06/24/21 History fluticasone propionate 50 1 spray INTRANASAL BID PRN 04/09/19 06/24/21 History mcg/actuation nasal spray,suspension (Flonase Allergy Relief) pantoprazole 20 mg tablet,delayed 20 mg PO BID 07/11/19 06/24/21 History release (Protonix) spironolactone 50 mg tablet 50 mg PO DAILY 07/11/19 06/24/21 History clopidogrel 75 mg tablet (Plavix) 75 mg PO DAILY 05/25/21 06/22/21 History zonisamide 100 mg capsule 400 mg PO .HS cap 05/25/21 06/24/21 History (Zonegran) hydrocodone 5 mg-acetaminophen 325 1 tab PO BID 06/17/21 06/24/21 History mg tablet hydroxychloroquine 200 mg tablet 200 mg PO BID 06/17/21 06/24/21 History oxybutynin chloride 15 mg 15 mg PO DAILY 06/22/21 06/24/21 History tablet,extended release 24 hr trazodone 100 mg tablet 100 mg PO BEDTIME 06/24/21 06/24/21 History Allergies/Adverse Reactions Allergy/AdvReac Type Severity Reaction Status Date / Time oxycodone AdvReac Intermediate Itching Verified 06/24/21 08:16 Current Medications: Generic Name Dose Route Start Last Admin Trade Name Freq PRN Reason Stop Dose Admin Sodium Chloride 1,000 mls @ 30 mls/hr 06/24/21 08:15 06/24/21 08:23 Sodium Chloride 0.9% IV 06/25/21 08:14 30 mls/hr .Q24H SANCHO Administration Pertinent History/Comorbid Conditions* Medical History (Updated 05/25/21 @ 14:26 by Yrn Quintero MD) Chronic constipation Hydronephrosis of right kidney Psychiatric care Sleep apnea with use of continuous positive airway pressure (CPAP) Urgency incontinence Urolithiasis Surgical History (Updated 05/25/21 @ 14:26 by Yrn Quintero MD) H/O tubal ligation History of appendectomy Hx of cholecystectomy Status post laser lithotripsy of ureteral calculus Family History (Updated 07/13/19 @ 10:52 by PRIMITIVO [place]) Father, unknown Diabetes Brother Cancer Social History Smoking and tobacco status: never smoked Second hand smoke exposure: No Alcohol intake: never Adopted: No Caregiver/support person: No Lives independently: No Marital status: Current occupational status: employed History of recent travel: No Current gender identity: Female Pertinent Exam Findings alert, oriented x 3 and regular rate & rhythm Recommendations Surgery/Procedure today Coding Level of Care Code Acute Service Liaison Representative for Kwasi Arzola
[2021-06-24 10:07] VITALS: BP 107/73; PULSE 83; RESP 16; TEMP 36.6; O2SAT 94
--- NOTE | 2021-06-24 10:12 | ANE.PACU2 ---
Inpatient post-anesthesia follow up: Airway intact: Yes Vital signs: Temperature 97.8 F Pulse Rate 83 Respiratory Rate 16 Blood Pressure 107/73 Pulse Oximetry 94 Oxygen Delivery Me thod Nasal Cannula Oxygen Flow Rate 3 Fraction of Inspir ed Oxygen Hydration adequate: Yes Nausea and vomiting: No Pain level: 1 Mental status: Baseline
[2021-06-24 10:30] VITALS: BP 127/89; PULSE 75; RESP 15; O2SAT 96
== END 2021-06-24 10:42 | disposition home or self-care (01) ==
PROVIDERS: PCP Nurse Practitioner Family; Visit Provider Surgery
PROC: 0DJ08ZZ Inspection of Upper Intestinal Tract, Via Natural or Artificial Opening Endoscopic (ICD-10-PCS; CPT 43235; principal; 2021-06-24 09:45)
DX: K59.09 Other constipation (principal); R10.13 Epigastric pain; K25.9 Gastric ulcer, unspecified as acute or chronic, without hemorrhage or perforation; K29.70 Gastritis, unspecified, without bleeding; K21.9 Gastro-esophageal reflux disease without esophagitis; E78.5 Hyperlipidemia, unspecified; J44.9 Chronic obstructive pulmonary disease, unspecified; G47.30 Sleep apnea, unspecified; G89.29 Other chronic pain; Z79.891 Long term (current) use of opiate analgesic
CPT/HCPCS: 43235; 88305; 88342; J2704; J7030

== ENCOUNTER 2021-07-01 12:07 | Emergency (ER) | payer MEDICAID, SELFPAY ==
[2021-07-01 13:14] VITALS: BP 117/73; PULSE 72; RESP 15; TEMP 36.6; O2SAT 98; BMI 32.8
--- NOTE | 2021-07-01 13:31 | ED_ITS ---
HPI - General Adult General: Chief complaint: General Medical Stated complaint: weak legs, trouble walking Time Seen by Provider: 07/01/21 13:28 History of Present Illness: Ms. Johnson is a 55-year-old lady with history of psychiatric illness, epigastric pain, hypertension, hyperlipidemia who presents to the emergency department due to bilateral lower extremity weakness. She reports a history of back pain and back spasms as well as some amount of bilateral lower extremity weakness typically worse on the left however this has been worse since this morning. She was bending over to clean a low shelf and subsequently was unable to get back up. She denies associated worsening of back pain. Symptoms are bilateral and moderate in intensity. She primarily involves proximal anterior muscle weakness. She denies loss of continence, new sensory changes, or any other new neurologic changes. She has had similar episodes in the past. She has otherwise been at her baseline health, she did recently start a medication for stomach infection identified on endoscopy. The patient also has various other chronic concerns including episodic dizziness that occurs primarily while walking and causes either falling to the left or right. This occurs with daily and has not changed significantly in intensity, frequency, or other factors. No other specific changes in health, exacerbating, or alleviating factors identified. Onset (ago): hour(s) Location: lower extremity Severity: moderate Review of Systems General: Reports: 10 or more systems reviewed and unremarkable except in HPI and below PFSH ED PFSH: Medical History Chronic constipation Hydronephrosis of right kidney Psychiatric care Sleep apnea with use of continuous positive airway pressure (CPAP) Urgency incontinence Urolithiasis Surgical History H/O esophagogastroduodenoscopy (06/24/21) gastric erosions H/O tubal ligation History of appendectomy Hx of cholecystectomy Status post laser lithotripsy of ureteral calculus Family History Brother Diabetes Father , unknown No problems noted. Other Cancer Social History Smoking and tobacco status: never smoked Second hand smoke exposure: No Alcohol intake: never Adopted: No Caregiver/support person: No Lives independently: No Marital status: Current occupational status: employed History of recent travel: No Current gender identity: Female Physical Exam Const: COMMON NORMALS: alert GENERAL APPEARANCE: cooperative and well developed HENMT: COMMON NORMALS: normocephalic, atraumatic, external ears normal, EAC's normal and TM's normal bilaterally HEAD & SCALP: normocephalic and atraumatic EXTERNAL EAR: Yes external ears normal EXTERNAL AUDITORY CANAL: EAC's n ormal TYMPANIC MEMBRANE: TM's normal bilaterally Eye: COMMON NORMALS: conjunctivae normal CONJUNCTIVA: Yes conjunctivae normal SCLERA: sclerae normal Neck/C-Spine: COMMON NORMALS: supple GENERAL: Yes trachea midline Resp: COMMON NORMALS: normal respiratory effort EFFORT & INSPECTION: Yes able to speak in complete sentences Cardio: COMMON NORMALS: regular rate and regular rhythm RATE: regular rate RHYTHM: regular rhythm GI: COMMON NORMALS: Soft to palpation PALPATION: Yes Soft to palpation and No Tenderness to palpation present (GI) Extremity: GENERAL: Yes normal exam except as noted and No edema Neuro: COMMON NORMALS: moves all extremities SENSORIUM/ORIENTATION: Yes alert and No Orientation impaired OTHER: BLE 4/5 strength (?effort), sensory intact. Psych: COMMON NORMALS: mental status grossly normal and Normal thought process present THOUGHT PROCESS: Normal thought process present Course ED course: - Patient was seen and evaluated by me at bedside - Patient placed on cardiac monitors, IV access obtained - Initial evaluation notable for exam as above, no tenderness palpation of T- spine. No focality of deficits, questionable effort dependence regarding lower extremity strength testing - Labs notable for no hematologic abnormalities, and amenable evidence of dehydration on metabolic panel, IV fluids ordered. Analgesia ordered. No evidence of urinary tract infection. - Based on ED evaluation at this time I do not believe that emergency department imaging is warranted, the patient will likely require outpatient imaging however I will defer this to a specialist regarding best modality. - Upon serial reexamination after treatment the patient was mildly improved - Based on patient history, evaluation, and testing as interpreted the most likely cause of the patient's condition is chronic low back pain resulting in recurrent positional dependent lower extremity weakness which is bilateral in nature. - The results of ED evaluation were discussed with the patient including prescriptions and/or symptomatic cares (if applicable) including appropriate and responsible use, followup plan, and return precautions. I will place case management referral for follow-up with orthopedic spine. Patient apparently has seen pain management in the past however this has not been for some time. The patient verbalized understanding and felt safe for discharge. - Patient discharged in satisfactory condition. Note: Click bubbles or prepopulated wick in note writing are used for assistance with data collection and billing and are inherently more limited than narrative and other text portions of this note. Please use narrative for additional clinical history and defer to narrative/free test for any case of contradictory information. If information appears in only free text or click bubble it should be considered present or absent as reported. Please contact note scenario writer for clarifications of clinical information or contradictory information. MDM is a brief summary, contradictory or erroneous seeming information should be clarified and full note should be reviewed. Vital Signs: Vital signs: Vital Signs Temperature 97.8 F 07/01/21 16:58 Pulse Rate 64 07/01/21 18:15 Respiratory Rate 18 07/01/21 18:15 Blood Pressure 119/75 07/01/21 18:15 Pulse Oximetry 96 07/01/21 18:15 MDM - General Adult Medical Decision Making 55-year-old lady with history of recurrent episodes of quadricep weakness bilaterally which may be more related to pain in etiology associated with going from crouching to standing. The episode today is essentially unchanged from previous. No concerning new associated symptoms or focal abnormalities identified on ED evaluation. Patient satisfactory for outpatient follow-up. Plan to refer to orthopedic spine. Medical Records I reviewed the patient's medical records. Lab Data I reviewed the patient's lab results. : 07/01/21 14:20 07/01/21 14:20 Laboratory Results WBC 6.2 10^3/uL (4.0-10.0) 07/01/21 14:20 RBC 4.40 10^6/uL (4.1-5.3) 07/01/21 14:20 Hgb 13.4 g/dL (11.5-15.3) 07/01/21 14:20 Hct 41.1 % (37.0-47.0) 07/01/21 14:20 MCV 93.4 fl (81-99) 07/01/21 14:20 MCH 30.5 pg (28.0-34.0) 07/01/21 14:20 MCHC 32.6 g/dL (30.0-36.0) 07/01/21 14:20 RDW 12.5 % (12.1-15.1) 07/01/21 14:20 Plt Count 335 10^3/cmm (130-400) 07/01/21 14:20 MPV 9.2 fL (7.4-10.4) 07/01/21 14:20 Neut % (Auto) 71.5 % 07/01/21 14:20 Lymph % (Auto) 18.6 % 07/01/21 14:20 [place] % (Auto) 8.0 % 07/01/21 14:20 Eos % (Auto) 1.0 % 07/01/21 14:20 Baso % (Auto) 0.6 % 07/01/21 14:20 Neut # (Auto) 4.45 10^3/uL (1.8-7.7) 07/01/21 14:20 Lymph # (Auto) 1.2 10^3/uL (0.8-4.8) 07/01/21 14:20 [place] # (Auto) 0.5 10^3/uL (0.2-0.9) 07/01/21 14:20 Eos # (Auto) 0.1 10^3/uL (0.0-0.8) 07/01/21 14:20 Baso # (Auto) 0.0 10^3/uL (0.0-0.1) 07/01/21 14:20 Nucleated RBC % (auto) 0 % 07/01/21 14:20 Nucleated RBCs # 0.0 /100WBC 07/01/21 14:20 Sodium 134 mmol/L (136-145) L 07/01/21 14:20 Potassium 4.2 mmol/L (3.5-5.1) 07/01/21 14:20 Chloride 102 mmol/L (98-107) 07/01/21 14:20 Carbon Dioxide 23 mmol/L (22-29) 07/01/21 14:20 Anion Gap 13.2 (5-19) 07/01/21 14:20 BUN 13 mg/dL (6-20) 07/01/21 14:20 Creatinine 0.9 mg/dL (0.5-0.9) 07/01/21 14:20 GFR Calculation 65.2 mL/min (90-130) L 07/01/21 14:20 Glucose 90 mg/dL (65-115) 07/01/21 14:20 Calculated Osmolality 278 mOsm/kg (285-295) L 07/01/21 14:20 Calcium 9.5 mg/dL (8.5-10.5) 07/01/21 14:20 Total Bilirubin 0.3 mg/dL (0.15-1.2) 07/01/21 14:20 AST 16 U/L (0-32) 07/01/21 14:20 ALT 14 U/L (0-33) 07/01/21 14:20 Alkaline Phosphatase 108 IU/L (35-105) H 07/01/21 14:20 Total Protein 6.9 g/dL (6.6-8.7) 07/01/21 14:20 Albumin 4.3 g/dL (3.5-5.2) 07/01/21 14:20 Globulin 2.6 g/dL (1.3-4.6) 07/01/21 14:20 TSH 1.60 uIU/mL (0.27-4.20) 07/01/21 14:20 Urine Color Brown (Yellow) 07/01/21 15:33 Urine Appearance Clear (CLEAR) 07/01/21 15:33 Urine pH 7 (5-7) 07/01/21 15:33 Ur Specific [place] 1.010 (1.005-1.030) 07/01/21 15:33 Urine Protein Neg (Negative) 07/01/21 15:33 Urine Glucose (UA) Norm (Normal) 07/01/21 15:33 Urine Ketones Negative (Negative) 07/01/21 15:33 Urine Blood Neg (Negative) 07/01/21 15:33 Urine Nitrate Negative (Negative) 07/01/21 15:33 Urine Bilirubin Neg (Negative) 07/01/21 15:33 Urine Urobilinogen 1 mg/dL (Negative) H 07/01/21 15:33 Ur Leukocyte Esterase Negative (Negative) 07/01/21 15:33 Discharge Plan Discharge Patient Disposition: Home Clinical Impression: Bilateral leg weakness, Mild dehydration Condition: Stable Prescriptions: No Action silver sulfadiazine [Silvadene] 1 % cream 1 applic topical BID 14 Days Qty: 20 0RF Rx Instructions: apply a 1.5 mm thickness albuterol sulfate 90 mcg/actuation aerosol powdr breath activated 2 inh INHALATION Q4H PRN (Reason: Shortness Of Breath) 0RF atorvastatin [Lipitor] 20 mg tablet 20 mg PO DAILY 0RF fluticasone propionate [Flonase Allergy Relief] 50 mcg/actuation sp ray,suspension 1 spray INTRANASAL BID PRN (Reason: UNKNOWN) 0RF zonisamide [Zonegran] 100 mg capsule 400 mg PO .HS 0RF (DME) Custom Molded Orthotics See Rx Instructions .Route .MEDSUPPLY Qty: 1 0RF Rx Instructions: As directed clopidogrel [Plavix] 75 mg tablet 75 mg PO DAILY 0RF hydrocodone-acetaminophen 5-325 mg tablet 1 tab PO BID 0RF hydroxychloroquine 200 mg tablet 200 mg PO BID 0RF fluoxetine 40 mg capsule 80 mg PO DAILY Qty: 60 2RF tetracycline 500 mg capsule 500 mg PO Q6H 14 Days Qty: 56 0RF metronidazole 500 mg tablet 500 mg PO Q6H 14 Days Qty: 56 0RF oxybutynin chloride 15 mg tablet extended release 24hr 15 mg PO DAILY 0RF Rx Instructions: TAKE 1 TABLET BY MOUTH DAILY trazodone 100 mg tablet 100 mg PO BEDTIME 0RF Protonix 40 mg tablet,delayed release (DR/EC) 40 mg PO BID Qty: 28 0RF pantoprazole [Protonix] 20 mg Tablet,Delayed Release (Dr/Ec) 20 mg PO BID 0RF Hold Instructions: Resume on 07/08/21. spironolactone 50 mg Tablet 50 mg PO DAILY 0RF ondansetron 4 mg tablet,disintegrating 4 mg PO Q6H PRN (Reason: nausea and vomiting) Qty: 14 0RF Discharge Orders: Discharge ED (Routine); Ordered 07/01/21 Ordered By: Wallace Warner Referrals: Cristina Martin DO [Primary Care Provider] - Discharge Diet: Usual diet Discharge Activity: Resume usual activity Patient Instructions: Weakness (ED), Chronic Back Pain (DC), Opioid Safety Activity Restrictions/Additional Instructions: Thank you for visiting the emergency department. You were seen and evaluated for leg weakness. The exact cause of your symptoms is somewhat unclear however given duration of symptoms does not require inpatient evaluation at this time. I recommend follow-up with orthopedic spine and I will message our corrections caseworker to assist with scheduling. Additionally please follow-up with your primary care provider. Please return to the emergency department for worsening symptoms, weakness or sensory changes in 1 extremity that is new from baseline, any difficulty controlling your bowels or bladder, any numbness in your groin region, or anything else that you are concerned about and feel needs emergency department evaluation. Coding Level of Care Code ED Life Skills Worker for Rushg Fwd Exam Comprehensive
[2021-07-01 14:28] LABS: Basophils % 0.6 %; Eosinophils # 0.1 10^3/uL (0.0-0.8); Hematocrit 41.1 % (37.0-47.0); Hemoglobin 13.4 g/dL (11.5-15.3); Lymphocytes # 1.2 10^3/uL (0.8-4.8); Lymphocytes % 18.6 %; Mean Corpuscular HGB Conc 32.6 g/dL (30.0-36.0); Mean Corpuscular Hemoglobin 30.5 pg (28.0-34.0); Mean Corpuscular Volume 93.4 fl (81-99); Mean Platelet Volume 9.2 fL (7.4-10.4); Monocytes # 0.5 10^3/uL (0.2-0.9); Neutrophils # 4.45 10^3/uL (1.8-7.7); Neutrophils % 71.5 %; Nucleated Red Blood Cells % 0 %; Platelet Count 335 10^3/cmm (130-400); Red Cell Distribution Width 12.5 % (12.1-15.1); White Blood Count 6.2 10^3/uL (4.0-10.0)
[2021-07-01 15:13] LABS: Alanine Aminotransferase 14 U/L (0-33); Albumin Level 4.3 g/dL (3.5-5.2); Alkaline Phosphatase 108 IU/L (35-105); Anion Gap 13.2 (5-19); Aspartate Amino Transferase 16 U/L (0-32); Blood Urea Nitrogen 13 mg/dL (6-20); Calcium 9.5 mg/dL (8.5-10.5); Carbon Dioxide 23 mmol/L (22-29); Chloride 102 mmol/L (98-107); Globulin 2.6 g/dL (1.3-4.6); Glomerular Filtration Rate 65.2 mL/min (90-130); Glucose 90 mg/dL (65-115); Osmolality Calculated 278 mOsm/kg (285-295); Potassium 4.2 mmol/L (3.5-5.1); Sodium 134 mmol/L (136-145); Total Bilirubin 0.3 mg/dL (0.15-1.2); Total Protein 6.9 g/dL (6.6-8.7)
[2021-07-01] MEDS: sodium chloride 0.9% 1,000 ML 999 ML IV (15:45)
[2021-07-01 15:56] LABS: Add Urine Microscopic? NO; Charge for UA Resulting for Rev
[2021-07-01 16:02] LABS: Bilirubin Urine Neg (Negative); Blood Urine Neg (Negative); Glucose Urine UA Norm (Normal); Ketones Urine Negative (Negative); Leukocyte Esterase Urine Negative (Negative); Nitrate Urine Negative (Negative); Protein Urine Neg (Negative); Urine Appearance Clear (CLEAR); Urine Color Brown (Yellow); Urobilinogen Urine 1 mg/dL (Negative); pH Urine 7 (5-7)
[2021-07-01] MEDS: acetaminophen 500 mg Tablet 1000 MG PO (16:19)
[2021-07-01] MEDS: methocarbamol 750 mg Tablet PO (16:19)
[2021-07-01] MEDS: ketorolac 30 mg/mL INJ 15 MG IVP (16:20)
--- NOTE | 2021-07-01 16:57 | PC.NURSE ---
Fluids infusing, D/C after fluids are complete.
[2021-07-01 16:58] VITALS: BP 113/67; PULSE 66; RESP 14; TEMP 36.6; O2SAT 93
--- NOTE | 2021-07-01 17:24 | PC.NURSE ---
Patient fluids infusing instructed patient to keep arm straight to make sure the fluids infuse. Patient verbalized understanding.
[2021-07-01 18:15] VITALS: BP 119/75; PULSE 64; RESP 18; O2SAT 96
--- NOTE | 2021-07-02 12:20 | DCPLANNER ---
Addendum entered by Nannette Titus 07/03/21 13:51: general production manager was contacted by the ortho clinic stating that patient was seen earlier in the month and had an injection in the knee and that at this time that there is nothing more that the clinic can do. The clinic suggested that patient follow up with primary care physician. general production manager called patient to inform patient of this, left a voicemail for patient with the information from the clinic. general production manager offered to make a follow up appointment for patient with primary care physician. general production manager asked patient to return case coordinator phone call. Original Note: general production manager had message to schedule a follow up appointment for patient with ortho. general production manager sent patients information to the front staff at ortho thru [employer] messaging system. Patients information will be printed and reviewed. Clinic will call patient with appointment information.
== END 2021-07-01 18:16 | disposition home or self-care (01) ==
PROVIDERS: Emergency Provider Emergency Medicine; PCP Family Medicine
DX: R53.1 Weakness (principal); E86.0 Dehydration
CPT/HCPCS: 80053; 81003; 84443; 85025; 96361; 96374; 99284; J1885; J7030

== ENCOUNTER → 2021-07-02 10:31 | Outpatient (BNVA) | payer MEDICAID, SELFPAY | PROVIDERS: PCP Family Medicine; Visit Provider Counselor Professional | DX: F60.3 Borderline personality disorder (principal); F33.2 Major depressive disorder, recurrent severe without psychotic features | CPT/HCPCS: 90834 ==

== ENCOUNTER 2021-07-05 12:33 | Emergency (ER) | payer MEDICAID, SELFPAY ==
[2021-07-05 12:38] VITALS: BP 115/84; PULSE 81; RESP 18; TEMP 36.9; O2SAT 97; BMI 32.8
--- NOTE | 2021-07-05 12:44 | ED_ITS ---
HPI - Abdominal Pain General: Chief Complaint: Abdominal Pain Stated Complaint: Weakness, constipation, V Time Seen by Provider: 07/05/21 12:43 History of Present Illness: Ms. Johnson is a 55-year-old lady with complex past medical history occluding chronic constipation who presents to the emergency department due to constipation and abdominal pain. She reports symptoms began about 4 to 5 days ago. Approximately 1 week ago she was supposed to undergo colonoscopy and did attempt a bowel prep however vomited most of this up. She did have small bowel movements prior to that. She underwent colonoscopy however had suboptimal prep and this was not completed. She was noted on EGD to have some ulcerations was supposed to start antibiotics however has not been take this. She reports gradually increasing now moderate in intensity abdominal discomfort and cramping. She has tried [id number] Dulcolax without significant relief mostly yesterday. She has had similar epis ode the past. Other chronic concerns are unchanged. No other specific changes in health, exacerbating, or alleviating factors identified. Onset (ago): day(s) Pain Consistency: intermittent Location: Diffuse Severity: moderate Quality: cramping Exacerbating factors: eating Associated Symptoms: Reports constipation Review of Systems General: Reports: 10 or more systems reviewed and unremarkable except in HPI and below GI: Reports: constipation PFSH ED PFSH: Medical History Chronic constipation Hydronephrosis of right kidney Psychiatric care Sleep apnea with use of continuous positive airway pressure (CPAP) Urgency incontinence Urolithiasis Surgical History H/O esophagogastroduodenoscopy (06/24/21) gastric erosions H/O tubal ligation History of appendectomy Hx of cholecystectomy Status post laser lithotripsy of ureteral calculus Family History Brother Diabetes Father , unknown No problems noted. Other Cancer Social History Smoking and tobacco status: never smoked Second hand smoke exposure: No Alcohol intake: never Adopted: No Caregiver/support person: No Lives independently: No Marital status: Current occupational status: employed History of recent travel: No Current gender identity: Female Physical Exam Const: COMMON NORMALS: alert GENERAL APPEARANCE: cooperative and well d eveloped NUTRITIONAL APPEARANCE: obese HENMT: COMMON NORMALS: normocephalic and atraumatic HEAD & SCALP: normocephalic and atraumatic Eye: COMMON NORMALS: conjunctivae normal CONJUNCTIVA: Yes conjunctivae normal SCLERA: sclerae normal Neck/C-Spine: COMMON NORMALS: supple GENERAL: Yes trachea midline Resp: COMMON NORMALS: normal respiratory effort and clear to auscultation bilaterally EFFORT & INSPECTION: Yes able to speak in complete sentences AUSCULTATION: clear to auscultation bilaterally Cardio: COMMON NORMALS: regular rate and regular rhythm RATE: regular rate RHYTHM: regular rhythm GI: COMMON NORMALS: Soft to palpation PALPATION: Yes Soft to palpation, Yes Tenderness to palpation present (GI), No Guarding due to palpation present (GI), No Rigid due to palpation and No Rebound tenderness present PERCUSSION: normal to percussion Extremity: GENERAL: Yes normal exam except as noted and No edema Neuro: COMMON NORMALS: moves all extremities SENSORIUM/ORIENTATION: Yes alert and No Orientation impaired Psych: COMMON NORMALS: mental status grossly normal and Normal thought process present THOUGHT PROCESS: Normal thought process present Course ED course: - Patient was seen and evaluated by me at bedside - Patient placed on cardiac monitors, IV access obtained - Initial evaluation notable for as above - Labs personally interpreted by me. EKG at 1302 personally interpreted by me. Nonspecific ST segment abnormalities possibly secondary to baseline wander. Sin us rhythm. No STEMI. - Antiemetic and Bentyl given - Labs notable for no acute hematologic abnormality. Metabolic panel with minimal evidence of diet hydration though not requiring intervention. Ur inalysis not concerning for urinary tract infection in the context of negative nitrate and squamous epithelial contamination. - Imaging notable for no evidence of significant stool burden or bowel obs truction - Upon serial reexamination after treatment the patient was similar to mildly improved - Based on patient history, evaluation, and testing as interpreted the most likely cause of the patient's condition is unclear, likely related to chronic constipation in addition to possible disruption of normal peristalsis/stool burden secondary to recent attempted endoscopy - The results of ED evaluation were discussed with the patient including prescriptions and/or symptomatic cares (if applicable) including appropriate and responsible use, followup plan, and return precautions. She did express concern regarding continued bilateral lower extremity weakness which I previously evaluated her for, I reinforced need for outpatient follow-up, no new red flag symptoms/significant changes compared to prior. The patient verbalized understanding. - Patient discharged in satisfactory condition. Note: Click bubbles or prepopulated wick in note writing are used for assistance with data collection and billing and are inherently more limited than narrative and other text portions of this note. Please use narrative for additional clinical history and defer to narrative/free test for any case of contradictory information. If information appears in only free text or click bubble it should be considered present or absent as reported. Please contact note technical proposal writer for clarifications of clinical information or contradictory information. MDM is a brief summary, contradictory or erroneous seeming information should be clarified and full note should be reviewed. Vital Signs: Vital signs: Vital Signs Temperature 98.3 F 07/05/21 17:49 Pulse Rate 67 07/05/21 17:49 Respiratory Rate 16 07/05/21 17:49 Blood Pressure 120/82 07/05/21 17:49 Pulse Oximetry 98 07/05/21 17:49 MDM - Abdominal Pain Medical Decision Making 55-year-old lady with complicated history including chronic constipation presented due to abdominal pain and decreased stool output. CT negative for increased stool burden or evidence of obstruction. Satisfactory for outpatient management. Medical Records I reviewed the patient's medical records. Lab Data I reviewed the patient's lab results. : 07/05/21 10:50 07/05/21 13:30 Labs/Radiology: Radiology Impressions Abdomen/Pelvis CT 07/05/21 13:31 IMPRESSION: No acute findings.Non acute findings as described above. Laboratory Results WBC 5.9 10^3/uL (4.0-10.0) 07/05/21 10:50 RBC 4.94 10^6/uL (4.1-5.3) 07/05/21 10:50 Hgb 14.8 g/dL (11.5-15.3) 07/05/21 10:50 Hct 46.4 % (37.0-47.0) 07/05/21 10:50 MCV 93.9 fl (81-99) 07/05/21 10:50 MCH 30.0 pg (28.0-34.0) 07/05/21 10:50 MCHC 31.9 g/dL (30.0-36.0) 07/05/21 10:50 RDW 12.9 % (12.1-15.1) 07/05/21 10:50 Plt Count 350 10^3/cmm (130-400) 07/05/21 10:50 MPV 9.3 fL (7.4-10.4) 07/05/21 10:50 Neut % (Auto) 69.9 % 07/05/21 10:50 Lymph % (Auto) 18.8 % 07/05/21 10:50 [place] % (Auto) 8.5 % 07/05/21 10:50 Eos % (Auto) 1.7 % 07/05/21 10:50 Baso % (Auto) 0.9 % 07/05/21 10:50 Neut # (Auto) 4.09 10^3/uL (1.8-7.7) 07/05/21 10:50 Lymph # (Auto) 1.1 10^3/uL (0.8-4.8) 07/05/21 10:50 [place] # (Auto) 0.5 10^3/uL (0.2-0.9) 07/05/21 10:50 Eos # (Auto) 0.1 10^3/uL (0.0-0.8) 07/05/21 10:50 Baso # (Auto) 0.1 10^3/uL (0.0-0.1) 07/05/21 10:50 Nucleated RBC % (auto) 0 % 07/05/21 10:50 Nucleated RBCs # 0.0 /100WBC 07/05/21 10:50 Sodium 137 mmol/L (136-145) 07/05/21 13:30 Potassium 3.7 mmol/L (3.5-5.1) 07/05/21 13:30 Chloride 105 mmol/L (98-107) 07/05/21 13:30 Carbon Dioxide 21 mmol/L (22-29) L 07/05/21 13:30 Anion Gap 14.7 (5-19) 07/05/21 13:30 BUN 15 mg/dL (6-20) 07/05/21 13:30 Creatinine 1.0 mg/dL (0.5-0.9) H 07/05/21 13:30 GFR Calculation 57.8 mL/min (90-130) L 07/05/21 13:30 Glucose 94 mg/dL (65-115) 07/05/21 13:30 Calculated Osmolality 285 mOsm/kg (285-295) 07/05/21 13:30 Calcium 9.5 mg/dL (8.5-10.5) 07/05/21 13:30 Total Bilirubin 0.3 mg/dL (0.15-1.2) 07/05/21 13:30 AST 28 U/L (0-32) 07/05/21 13:30 ALT 25 U/L (0-33) 07/05/21 13:30 Alkaline Phosphatase 99 IU/L (35-105) 07/05/21 13:30 Total Protein 6.5 g/dL (6.6-8.7) L 07/05/21 13:30 Albumin 4.3 g/dL (3.5-5.2) 07/05/21 13:30 Globulin 2.2 g/dL (1.3-4.6) 07/05/21 13:30 Lipase 27 U/L (13-60) 07/05/21 13:30 Urine Color Dark yellow (Yellow) 07/05/21 14:15 Urine Appearance Sl hazy (CLEAR) 07/05/21 14:15 Urine pH 5 (5-7) 07/05/21 14:15 Ur Specific [place] 1.025 (1.005-1.030) 07/05/21 14:15 Urine Protein Neg (Negative) 07/05/21 14:15 Urine Glucose (UA) Norm (Normal) 07/05/21 14:15 Urine Ketones 1+ (Negative) H 07/05/21 14:15 Urine Blood Neg (Negative) 07/05/21 14:15 Urine Nitrate Negative (Negative) 07/05/21 14:15 Urine Bilirubin Neg (Negative) 07/05/21 14:15 Urine Urobilinogen Norm mg/dL (Negative) 07/05/21 14:15 Ur Leukocyte Esterase 2+ (Negative) H 07/05/21 14:15 Urine RBC None /hpf (0-2) 07/05/21 14:15 Urine WBC 5-10 /hpf (0-5) H 07/05/21 14:15 Ur Squamous Epith Cells 10-15 /hpf (0-5) H 07/05/21 14:15 Calcium Oxalate Crystal 10-15 /hpf H 07/05/21 14:15 Amorphous Sediment Not Reportable 07/05/21 14:15 Urine Bacteria 2+ /hpf (NONE) H 07/05/21 14:15 Discharge Plan Discharge Patient Disposition: Home Clinical Impression: Abdominal pain Condition: Stable Prescriptions: New ondansetron 4 mg tablet,disintegrating 4 mg PO Q8H PRN (Reason: nausea and vomiting) Qty: 15 0RF No Action silver sulfadiazine [Silvadene] 1 % cream 1 applic topical BID 14 Days Qty: 20 0RF Rx Instructions: apply a 1.5 mm thickness albuterol sulfate 90 mcg/actuation aerosol powdr breath activated 2 inh INHALATION Q4H PRN (Reason: Shortness Of Breath) 0RF atorvastatin [Lipitor] 20 mg tablet 20 mg PO DAILY 0RF fluticasone propionate [Flonase Allergy Relief] 50 mcg/actuation spray,suspension 1 spray INTRANASAL BID PRN (Reason: UNKNOWN) 0RF zonisamide [Zonegran] 100 mg capsule 400 mg PO .HS 0RF (DME) Custom Molded Orthotics See Rx Instructions .Route .MEDSUPPLY Qty: 1 0RF Rx Instructions: As directed clopidogrel [Plavix] 75 mg tablet 75 mg PO DAILY 0RF hydrocodone-acetaminophen 5-325 mg tablet 1 tab PO BID 0RF hydroxychloroquine 200 mg tablet 200 mg PO BID 0RF fluoxetine 40 mg capsule 80 mg PO DAILY Qty: 60 2RF peg 3350-electrolytes [Golytely] 236-22.74-6.74 -5.86 gram recon soln 240 ml PO Q10M Qty: 4000 0RF Rx Instructions: until fecal effluent is clear lactulose 10 gram/15 mL (15 mL) solution 15 ml PO BID 14 Days Qty: 420 0RF tetracycline 500 mg capsule 500 mg PO Q6H 14 Days Qty: 56 0RF metronidazole 500 mg tablet 500 mg PO Q6H 14 Days Qty: 56 0RF oxybutynin chloride 15 mg tablet extended release 24hr 15 mg PO DAILY 0RF Rx Instructions: TAKE 1 TABLET BY MOUTH DAILY trazodone 100 mg tablet 100 mg PO BEDTIME 0RF Protonix 40 mg tablet,delayed release (DR/EC) 40 mg PO BID Qty: 28 0RF pantoprazole [Protonix] 20 mg Tablet,Delayed Release (Dr/Ec) 20 mg PO BID 0RF Hold Instructions: Resume on 07/08/21. spironolactone 50 mg Tablet 50 mg PO DAILY 0RF ondansetron 4 mg tablet,disintegrating 4 mg PO Q6H PRN (Reason: nausea and vomiting) Qty: 14 0RF Discharge Orders: Discharge ED (Routine); Ordered 07/05/21 Ordered By: Wallace Warner Referrals: Cristina Martin DO [Primary Care Provider] - Discharge Diet: Advance as tolerated and Clear Liquid Discharge Activity: Increase activity as tolerated Patient Instructions: Abdominal Pain (ED), Opioid Safety Activity Restrictions/Additional Instructions: Thank you for visiting the emergency department. You were seen and evaluated for abdominal pain. The exact cause of your symptoms is unclear though there does not appear to be evidence of constipation or significant stool burden. It is possible that given your recent endoscopy you have symptoms related to mild irritation and interruption of normal peristalsis. You will be given a prescription for nausea medication. Please follow-up with your primary care provider. Please follow all previously given instructions and take your antibiotics for stomach infection. Please return to the emergency department for inability to tolerate oral intake despite treatment, or anything else that you are concerned about and feel needs emergency department evaluation. Coding Level of Care Code ED Certified Financial Planner for Kwasi Arzola
[2021-07-05 12:54] VITALS: BP 138/92; PULSE 84; RESP 16; TEMP 37.2; O2SAT 96
--- NOTE | 2021-07-05 13:04 | PC.NURSE ---
Taking an abx for 2 infected ulcers , but is unable to keep anything down.
[2021-07-05 13:24] LABS: Basophils # 0.1 10^3/uL (0.0-0.1); Basophils % 0.9 %; Eosinophils # 0.1 10^3/uL (0.0-0.8); Eosinophils % 1.7 %; Hematocrit 46.4 % (37.0-47.0); Hemoglobin 14.8 g/dL (11.5-15.3); Lymphocytes # 1.1 10^3/uL (0.8-4.8); Lymphocytes % 18.8 %; Mean Corpuscular HGB Conc 31.9 g/dL (30.0-36.0); Mean Corpuscular Volume 93.9 fl (81-99); Mean Platelet Volume 9.3 fL (7.4-10.4); Monocytes # 0.5 10^3/uL (0.2-0.9); Monocytes % 8.5 %; Neutrophils # 4.09 10^3/uL (1.8-7.7); Neutrophils % 69.9 %; Nucleated Red Blood Cells % 0 %; Platelet Count 350 10^3/cmm (130-400); Red Blood Count 4.94 10^6/uL (4.1-5.3); Red Cell Distribution Width 12.9 % (12.1-15.1); White Blood Count 5.9 10^3/uL (4.0-10.0)
--- NOTE | 2021-07-05 13:31 | CTR_ITS ---
PROCEDURE INFORMATION: Exam: CT Abdomen And Pelvis With Contrast Exam date and time: 07/05/2021 2:05 PM Age: 55 years old Clinical indication: Nausea and vomiting; Prior surgery; Surgery type: Appy, gb; Additional info: N/v/obstipation TECHNIQUE: Imaging protocol: Computed tomography of the abdomen and pelvis with contrast. Radiation optimization: All CT scans at this facility use at least one of these dose optimization techniques: automated exposure control; mA and/or kV adjustment per patient size (includes targeted exams where dose is matched to clinical indication); or iterative reconstruction. Contrast material: OMNI 300; Contrast volume: 95 ml; Contrast route: INTRAVENOUS (IV); COMPARISON: CT abdomen pelvis w con* [id number] 07/29/2020 8:55 AM RADIATION DOSE METRICS: Total DLP (mGy-cm): 1835.74 FINDINGS: Liver: Normal. No mass. Gallbladder and bile ducts: The gallbladder has been removed. Pancreas: Normal. No ductal dilation. Spleen: Normal. No splenomegaly. Adrenal glands: Normal. No mass. Kidneys and ureters: Normal. No hydronephrosis. Stomach and bowel: There is diverticulosis of the colon without evidence of diverticulitis. Appendix: There has been an appendectomy. Intraperitoneal space: Unremarkable. No free air. No significant fluid collection. Vasculature: Unremarkable. No abdominal aortic aneurysm. Lymph nodes: Unremarkable. No enlarged lymph nodes. Urinary bladder: Unremarkable as visualized. Reproductive: Unremarkable as visualized. Bones/joints: There are degenerative changes in the visualized spine. Soft tissues: Unremarkable. CT/CT abdomen pelvis w con* [id number] IMPRESSION: No acute findings.Non acute findings as described above.
[2021-07-05] MEDS: ondansetron 2 mg/ML SDV 2 mL 4 MG IVP (13:51)
[2021-07-05] MEDS: dicyclomine 10 mg Capsule PO (13:51)
[2021-07-05 13:54] VITALS: BP 138/98; PULSE 78; RESP 16; O2SAT 97
[2021-07-05] MEDS: iohexol 300 mg/mL 100 mL Btl IV (14:03)
[2021-07-05 14:23] LABS: Alanine Aminotransferase 25 U/L (0-33); Albumin Level 4.3 g/dL (3.5-5.2); Alkaline Phosphatase 99 IU/L (35-105); Anion Gap 14.7 (5-19); Aspartate Amino Transferase 28 U/L (0-32); Blood Urea Nitrogen 15 mg/dL (6-20); Calcium 9.5 mg/dL (8.5-10.5); Carbon Dioxide 21 mmol/L (22-29); Chloride 105 mmol/L (98-107); Globulin 2.2 g/dL (1.3-4.6); Glomerular Filtration Rate 57.8 mL/min (90-130); Glucose 94 mg/dL (65-115); Lipase 27 U/L (13-60); Osmolality Calculated 285 mOsm/kg (285-295); Potassium 3.7 mmol/L (3.5-5.1); Sodium 137 mmol/L (136-145); Total Bilirubin 0.3 mg/dL (0.15-1.2); Total Protein 6.5 g/dL (6.6-8.7)
[2021-07-05 14:33] LABS: Add Urine Culture? No; Add Urine Microscopic? YES; Bacteria Urine 2+ /hpf; Bilirubin Urine Neg (Negative); Blood Urine Neg (Negative); Glucose Urine UA Norm (Normal); Ketones Urine 1+ (Negative); Leukocyte Esterase Urine 2+ (Negative); Nitrate Urine Negative (Negative); Protein Urine Neg (Negative); Specific Gravity, Urine 1.025 (1.005-1.030); Urine Appearance SL Hazy (CLEAR); Urine Color Dark Yellow (Yellow); Urobilinogen Urine Norm (Negative); pH Urine 5 (5-7)
[2021-07-05 15:35] VITALS: BP 97/60; PULSE 93; O2SAT 96
--- NOTE | 2021-07-05 15:35 | PC.NURSE ---
received report from Louann
--- NOTE | 2021-07-05 16:45 | ECG_ITS ---
[facility] Test Date: 2021-07-05 Pat Name: Gold Johnson Department: Room: Gender: Female Media Relations Intern: : 1965 Requested By: Wallace Warner Order Number: [id number] Lou MD: Jamarcus Odell M.D. Measurements Intervals [place] Rate: 84 P: 21 AK: 168 QRS: 20 QRSD: 110 T: 47 QT: 392 QTc: 464 Interpretive Statements SINUS RHYTHM Compared to ECG 02/17/2020 18:46:49 Myocardial infarct finding no longer present Electronically Signed On 07-06-2021 15:27:58 CDT by Jamarcus Odell M.D. [email or web address]
[2021-07-05 17:49] VITALS: BP 120/82; PULSE 67; RESP 16; TEMP 36.8; O2SAT 98
== END 2021-07-05 18:01 | disposition home or self-care (01) ==
PROVIDERS: Emergency Provider Emergency Medicine; PCP Family Medicine
DX: R10.9 Unspecified abdominal pain (principal); K59.09 Other constipation
CPT/HCPCS: 74177; 80053; 81001; 83690; 85025; 93005; 96374; 99284; J2405; Q9967

== ENCOUNTER → 2021-07-06 08:57 | Outpatient (BNVA) | payer MEDICAID, SELFPAY | PROVIDERS: PCP Family Medicine; Visit Provider Surgery | DX: K29.70 Gastritis, unspecified, without bleeding (principal); B96.81 Helicobacter pylori [H. pylori] as the cause of diseases classified elsewhere; K59.09 Other constipation | CPT/HCPCS: 99212 ==

== ENCOUNTER 2021-07-06 16:07 | Outpatient (CLI) | payer MEDICAID, SELFPAY ==
--- NOTE | 2021-07-06 16:48 | XR_ITS ---
WS: [id number] XR lumbar spine min 4V [id number] REASON FOR EXAM: BACK PAIN, LUMBAR WITH RADICULOPATHY FINDINGS: On the AP mild rotatory scoliosis convex left. On the lateral straightening/reversal of upper lumbar spine lordosis. Mild chronic compression deformities throughout the lumbar spine. Significant narrowing of all the lumbar spine disc spaces. This is most severe from L2 to L5. No spondylolysis. There is 2 to 3 mm of anterolisthesis of L4 in relation to L3, L5 in relation to L4, and L5 in relati on to S1. The lumbar spinal canal appears narrowed from L4 to S1. No significant vertebral body movement with f lexion and extension. XR/XR lumbar spine min 4V [id number] IMPRESSION: Multilevel degenerative spondylosis with alteration of lumbar curvature as abov e. While/moderate progression of these changes compared to 07/14/2018.
== END 2021-07-06 16:08 | disposition home or self-care (01) ==
LOC: RAD 16:13
PROVIDERS: PCP Family Medicine; Visit Provider Family Medicine
DX: M54.16 Radiculopathy, lumbar region (principal); M47.816 Spondylosis without myelopathy or radiculopathy, lumbar region
CPT/HCPCS: 72110

== ENCOUNTER → 2021-07-16 10:42 | Outpatient (BNVA) | payer MEDICAID, SELFPAY | PROVIDERS: PCP Family Medicine; Visit Provider Podiatrist Foot & Ankle Surgery | DX: L60.3 Nail dystrophy (principal); Z98.890 Other specified postprocedural states; F60.3 Borderline personality disorder; F33.2 Major depressive disorder, recurrent severe without psychotic features | CPT/HCPCS: 90834; 99213 ==

== ENCOUNTER → 2021-07-29 14:40 | Outpatient (BNVA) | payer MEDICAID, SELFPAY | PROVIDERS: PCP Family Medicine; Visit Provider Psychiatry & Neurology Psychiatry | DX: F43.12 Post-traumatic stress disorder, chronic (principal); F60.3 Borderline personality disorder; F33.2 Major depressive disorder, recurrent severe without psychotic features; Z98.890 Other specified postprocedural states; L60.3 Nail dystrophy | CPT/HCPCS: 99213 ==

== ENCOUNTER → 2021-08-05 13:44 | Outpatient (BNVA) | payer MEDICAID, SELFPAY | PROVIDERS: PCP Family Medicine; Visit Provider Counselor Professional | DX: F60.3 Borderline personality disorder (principal); F33.2 Major depressive disorder, recurrent severe without psychotic features | CPT/HCPCS: 90834 ==

== ENCOUNTER 2021-08-12 05:58 | Day surgery (SDC) | payer MEDICAID, SELFPAY ==
[2021-08-07 12:37] VITALS: BMI 29.0
[2021-08-12 06:12] VITALS: BP 137/88; PULSE 74; RESP 18; O2SAT 97
[2021-08-12] MEDS: sodium chloride 0.9% 1,000 ML 30 ML IV (06:23)
--- NOTE | 2021-08-12 07:06 | ANES.PREANE2 ---
Pre-Anesthetic Assessment Height/Weight: Height 1.68 m Weight 81.647 kg Pulse Resp BP Pulse Ox 74 18 137/88 97 08/12/21 06:12 08/12/21 06:12 08/12/21 06:12 08/12/21 06:12 Preop Diagnosis: diagnostic Operation Date: 08/12/21 07:30 Proposed Procedures p Colonoscopy 47966/k59.09(Not Applicable) - Yrn Quintero MD Was Beta Freedom taken within 24 hours: N/A Was Clonidine taken within 24 hours: N/A Last intake: Intake Last Liquid Date 08/11/21 Last Liquid Time 21:00 Last Solid Date 08/09/21 Last Solid Time 16:00 Social No alcohol and No tobacco Exam alert, oriented x 3, clear to auscultation bilaterally and regular rate & rhythm Airway Submandibular: within normal limits Cervical ROM: within normal limits Mallampati: Class II Dentition: full (a few scattered teeth on bottom) History/ROS No significant history except as noted and No significant complaints Pulmonary None reported CV/HEM None reported hydronephrosis Hepatic None reported GI None reported Metabolic None reported Musc/skel Lower Back Pain and Osteoarthritis/DJD Neuropsych Anxiety Anesthetic Plan ASA status: 2 Anesthesia: Anesthesia Evaluation and MAC Risk of > 500 ml blood loss (7ml/kg in children): No Medications/Allergies Home Medications Medication Instructions Recorded Confirmed Last Taken Type albuterol sulfate 90 mcg/actuation 2 inh INHALATION Q4H PRN 04/09/19 08/07/21 08/10/21 History breath activated powder inhaler fluticasone propionate 50 1 spray INTRANASAL BID PRN 04/09/19 08/07/21 08/09/21 History mcg/actuation nasal spray,suspension (Flonase Allergy Relief) spironolactone 50 mg tablet 50 mg PO DAILY 07/11/19 08/07/21 08/11/21 History Custom Molded Orthotics #1 ea 05/20/21 07/29/21 Unknown Rx clopidogrel 75 mg tablet (Plavix) 75 mg PO DAILY 05/25/21 08/07/21 07/29/21 History zonisamide 100 mg capsule 400 mg PO .HS cap 05/25/21 08/07/21 08/11/21 History (Zonegran) hydrocodone 5 mg-acetaminophen 325 1 tab PO BID 03/08/07/21 08/09/21 History mg tablet oxybutynin chloride 15 mg 15 mg PO DAILY 06/22/21 08/07/21 08/11/21 History tablet,extended release 24 hr pantoprazole 40 mg tablet,delayed 40 mg PO BID #28 tab 06/24/21 08/07/21 08/11/21 Rx release (Protonix) ondansetron 4 mg disintegrating 4 mg PO Q8H PRN #15 tab 07/05/21 08/07/21 08/10/21 Rx tablet fluoxetine 40 mg capsule 80 mg PO DAILY #60 cap 07/29/21 08/07/21 08/11/21 Rx trazodone 100 mg tablet 200 mg PO BEDTIME #60 tab 07/29/21 08/07/21 08/11/21 Rx Allergies Allergy/AdvReac Type Severity Reaction Status Date / Time hydroxychloroquine Allergy Mild Weakness Verified 07/29/21 15:06 oxycodone AdvReac Intermediate Itching Verified 07/29/21 15:06 Current Medications Generic Name Dose Route Start Last Admin Trade Name Freq PRN Reason Stop Dose Admin Sodium Chloride 1,000 mls @ 30 mls/hr 08/12/21 06:15 08/12/21 06:23 Sodium Chloride 0.9% IV 08/13/21 06:14 30 mls/hr .Q24H SANCHO Administration PFSH Anesthesia Medical History Chronic constipation Hydronephrosis of right kidney Psychiatric care Sleep apnea with use of continuous positive airway pressure (CPAP) Urgency incontinence Urolithiasis Surgical History H/O esophagogastroduodenoscopy (06/24/21) gastric erosions H/O tubal ligation History of appendectomy Hx of cholecystectomy Status post laser lithotripsy of ureteral calculus Family History Brother Diabetes Father , unknown No problems noted. Other Cancer Social History Smoking and tobacco status: never smoked Second hand smoke exposure: No Alcohol intake: never Adopted: No Caregiver/support person: No Lives independently: No Marital status: Current occupational status: employed History of recent travel: No Current gender identity: Female Data Anesthesia Cardiac Studies: No Data to Display
--- NOTE | 2021-08-12 07:19 | W.PM.OPSFHP ---
Same Day Surgery H&P Indication for Procedure/HPI DATE OF PROCEDURE: August 12, 2021 CHIEF COMPLAINT/INDICATIONFOR SURGICAL PROCEDURE: colonoscopy PREOP DIAGNOSIS: diagnostic PLANNED PROCEDURE: Operation Date: 08/12/21 07:30 Proposed Procedures p Colonoscopy 59522/k59.09(Not Applicable) - Yrn Quintero MD Medications/Allergies* Home Medications Medication Instructions Recorded Confirmed Type albuterol sulfate 90 mcg/actuation 2 inh INHALATION Q4H PRN 04/09/19 08/07/21 History breath activated powder inhaler fluticasone propionate 50 1 spray INTRANASAL BID PRN 04/09/19 08/07/21 History mcg/actuation nasal spray,suspension (Flonase Allergy Relief) spironolactone 50 mg tablet 50 mg PO DAILY 07/11/19 08/07/21 History clopidogrel 75 mg tablet (Plavix) 75 mg PO DAILY 05/25/21 08/07/21 History zonisamide 100 mg capsule 400 mg PO .HS cap 05/25/21 08/07/21 History (Zonegran) hydrocodone 5 mg-acetaminophen 325 1 tab PO BID 06/17/21 08/07/21 History mg tablet oxybutynin chloride 15 mg 15 mg PO DAILY 06/22/21 08/07/21 History tablet,extended release 24 hr Allergies/Adverse Reactions Allergy/AdvReac Type Severity Reaction Status Date / Time hydroxychloroquine Allergy Mild Weakness Verified 07/29/21 15:06 oxycodone AdvReac Intermediate Itching Verified 07/29/21 15:06 Current Medications: Generic Name Dose Route Start Last Admin Trade Name Freq PRN Reason Stop Dose Admin Sodium Chloride 1,000 mls @ 30 mls/hr 08/12/21 06:15 08/12/21 06:23 Sodium Chloride 0.9% IV 08/13/21 06:14 30 mls/hr .Q24H SANCHO Administration Pertinent History/Comorbid Conditions* Medical History (Updated 07/13/21 @ 00:01 by ) Chronic constipation Hydronephrosis of right kidney Psychiatric care Sleep apnea with use of continuous positive airway pressure (CPAP) Urgency incontinence Urolithiasis Surgical History (Updated 07/16/21 @ 11:26 by Low Caldwell DPM) H/O esophagogastroduodenoscopy (06/24/21) gastric erosions H/O tubal ligation History of appendectomy Hx of cholecystectomy Status post laser lithotripsy of ureteral calculus Family History (Updated 07/13/19 @ 10:52 by PRIMITIVO [place]) Father, unknown Diabetes Brother Cancer Social History Smoking and tobacco status: never smoked Second hand smoke exposure: No Alcohol intake: never Adopted: No Caregiver/support person: No Lives independently: No Marital status: Current occupational status: employed History of recent travel: No Current gender identity: Female Pertinent Exam Findings alert, oriented x 3 and regular rate & rhythm Recommendations Surgery/Procedure today Coding Level of Care Code Acute Materials Associate for Kwasi Arzola
[2021-08-12 07:54] VITALS: BP 124/76; PULSE 71; RESP 18; TEMP 36.6; O2SAT 94
[2021-08-12 08:04] VITALS: BP 136/85; PULSE 64; RESP 18; TEMP 36.5; O2SAT 95
--- NOTE | 2021-08-12 17:15 | ANE.PACU2 ---
Inpatient post-anesthesia follow up: Airway intact: Yes Vital signs: Temperature 97.7 F Pulse Rate 64 Respiratory Rate 18 Blood Pressure 136/85 Pulse Oximetry 95 Oxygen Delivery Me thod Room Air Oxygen Flow Rate Fraction of Inspir ed Oxygen Hydration adequate: Yes Nausea and vomiting: No Pain level: 1 Mental status: Baseline
== END 2021-08-12 08:15 | disposition home or self-care (01) ==
PROVIDERS: PCP Family Medicine; Visit Provider Surgery
PROC: 0DJD8ZZ Inspection of Lower Intestinal Tract, Via Natural or Artificial Opening Endoscopic (ICD-10-PCS; CPT 45378; principal; 2021-08-12 07:30)
DX: K59.09 Other constipation (principal); K57.30 Diverticulosis of large intestine without perforation or abscess without bleeding; K64.8 Other hemorrhoids; D12.0 Benign neoplasm of cecum; M19.90 Unspecified osteoarthritis, unspecified site; F41.9 Anxiety disorder, unspecified; G47.30 Sleep apnea, unspecified
CPT/HCPCS: 45385; 88305; J2704; J7030

== ENCOUNTER 2021-08-16 16:59 | Emergency (ER) | payer MEDICAID, SELFPAY ==
[2021-08-16 17:23] VITALS: BP 119/84; PULSE 87; RESP 18; TEMP 36.8; O2SAT 99; BMI 30.9
--- NOTE | 2021-08-16 19:53 | XRR_ITS ---
PROCEDURE INFORMATION: Exam: XR Chest Exam date and time: 08/16/2021 8:05 PM Age: 55 years old Clinical indication: Cough TECHNIQUE: Imaging protocol: XR of the chest. Views: 1 view. COMPARISON: 1. CR XR chest 2V* [id number] 2020-10-02 10:24 2. CR XR chest 2V* [id number] 2020-03-06 15:46 3. CR XR chest 1V portable [id number] 2020-02-17 18:41 4. CR XR chest 1V portable [id number] 2019-09-19 14:09 FINDINGS: Limitations: Limited by patient's body habitus. Lungs: Hypoexpanded lungs with dependent atelectasis. Pleural spaces: Unremarkable. No pleural effusion. No pneumothorax. Heart/Mediastinum: Unremarkable. No cardiomegaly. Bones/joints: Unremarkable. XR/XR chest 1V portable [id number] IMPRESSION: Hypoexpanded lungs with dependent atelectasis.
--- NOTE | 2021-08-16 20:05 | W.ED.URI ---
HPI - URI/Sore Throat General: Chief Complaint: Upper Respiratory Infection Stated Complaint: Sore throat, headache Time Seen by Provider: 08/16/21 19:30 History of Present Illness: Patient is a 55-year-old female comes to the ED with upper respiratory symptoms. Symptoms started approximately 5 days ago. She has been having a mild sore throat, dry cough, left ear pain, sinus congestion and pain. She is having bilateral maxillary sinus pain. Patient also has a headache and is reporting some left side of face numbness/tingling. Denies any fever, chills, nausea/vomiting, bladder or bowel symptoms. Associated symptoms: Reports ear or mastoid pain (Left ear), headache(s), nasal congestion and sinus pain (Bilateral maxillary sinus pain); Deny abdominal pain, chills, chest pain, diarrhea, fever(s), nausea or vomiting Review of Systems Const: Denies: fever(s), chills or fatigue Eyes: Denies: change in vision or eye discomfort ENMT: Reports: throat pain, ear or mastoid pain (Left ear), nasal discharge, nasal congestion and sinus pain (Bilateral maxillary sinus pain); Denies: odynophagia Card: Denies: chest pain, palpitations, edema, swelling of feet/ankles, dyspnea on exertion or orthopnea Resp: Denies: dyspnea, productive cough or non-productive cough GI: Denies: abdominal pain, nausea, vomiting, diarrhea, constipation or hematochezia : Denies: flank pain, dysuria or hematuria Musc: Denies: neck pain, back pain or extremity swelling Skin/Breast: Denies: rash or new lesions Neuro: Reports: headache(s) and sensory changes (Numbness to left side of face); Denies: numbness in extremities or weakness in extremities [facility] ED PFSH: Medical History Chronic constipation Hydronephrosis of right kidney Psychiatric care Sleep apnea with use of continuous positive airway pressure (CPAP) Urgency incontinence Urolithiasis Surgical History H/O esophagogastroduodenoscopy (06/24/21) gastric erosions H/O tubal ligation History of appendectomy Hx of cholecystectomy Status post colonoscopy (08/12/21) Status post laser lithotripsy of ureteral calculus Family History Brother Diabetes Father , unknown No problems noted. Other Cancer Social History Smoking and tobacco status: never smoked Second hand smoke exposure: No Alcohol intake: never Adopted: No Caregiver/support person: No Lives independently: No Marital status: Current occupational status: employed History of recent travel: No Current gender identity: Female Physical Exam Const: COMMON NORMALS: patient oriented x3 and alert GENERAL APPEARANCE: cooperative and comfortable HENMT: COMMON NORMALS: normocephalic, external ears normal and EAC's normal HEAD & SCALP: normocephalic EXTERNAL EAR: Yes external ears normal EXTERNAL AUDITORY CANAL: EAC's normal TYMPANIC MEMBRANE: TM normal on the right and TM abnormal TM laterality: left Details: erythematous and fluid behind TM MOUTH: Normal oral and palatal mucosa present THROAT: posterior oropharynx normal and uvula midline Eye: COMMON NORMALS: Equal, round and reactive pupils present, EOMs intact bilaterally and conjunctivae normal CONJUNCTIVA: Yes conjunctivae normal PUPIL: Yes Equal, round and reactive pupils present Neck/C-Spine: COMMON NORMALS: supple GENERAL: Yes normal visual inspection Resp: COMMON NORMALS: normal respiratory effort, No retractions, No use of accessory muscles and clear to auscultation bilaterally AUSCULTATION: clear to auscultation bilaterally Cardio: COMMON NORMALS: regular rate, regular rhythm, S1 normal heart sound present, S2 normal heart sound present, No gallops present (Cardio), No clicks present (Cardio), No murmurs present (Cardio) and Peripheral pulses 2+ throughout RATE: regular rate RHYTHM: regular rhythm HEART SOUNDS: S1 normal heart sound present and S2 normal heart sound present PERIPHERAL PULSES: Peripheral pulses 2+ throughout GI: COMMON NORMALS: Normal to inspection, nondistended, normoactive bowel sounds present, Soft to palpation, non-tender and no masses PALPATION: Yes Soft to palpation : COMMON NORMALS: Yes no CVA tenderness BLADDER/KIDNEY EXAM: Yes no CVA tenderness Back/Pelvis: COMMON NORMALS: no CVA tenderness Extremity: COMMON NORMALS: normal to inspection Neuro: COMMON NORMALS: patient oriented x3, CN's II-XII intact bilaterally, moves all extremities, no focal motor deficits and no sensory deficits noted SENSORIUM/ORIENTATION: Yes alert SENSORY EXAM: Yes extremities (intact) MOTOR EXAM: 5/5 motor strength present throughout Skin: GENERAL SKIN EXAM: dry skin Course Vital Signs: Vital signs: Vital Signs Temperature 98.2 F 08/16/21 17:23 Pulse Rate 80 08/16/21 21:35 Respiratory Rate 18 08/16/21 21:35 Blood Pressure 138/78 08/16/21 21:35 Pulse Oximetry 98 08/16/21 21:35 MDM - URI/Sore Throat Medical Decision Making Patient is a 55-year-old female comes to the ED with left ear pain, headache. She also endorsed having mild cough but stated she is also having some left side of the face numbness. Vitals are stable and patient appears nontoxic and in no acute distress. Neuro exam showed no deficits. Left ear exam was remarkable for otitis media. Chest x-ray showed no acute findings. Head CT showed no acute intracranial abnormalities but did note signs of otitis media in left ear. Patient was diagnosed with otitis media and was discharged home with a prescription for amoxicillin. She was given a dose of amoxicillin here in the ED. She was told to follow-up with her PCP within the next week for reevaluation. Return to ED precautions given. Patient understood and agreed with plan. Lab Data Radiology Impressions Chest X-Ray 08/16/21 19:53 IMPRESSION: Hypoexpanded lungs with dependent atelectasis. Head CT 08/16/21 20:06 IMPRESSION: 1. Sparsely opacified left middle ear tenting inward the tympanic membrane, question mild otitis media. 2. No acute intracranial abnormality. Discharge Plan Discharge Patient Disposition: Home Clinical Impression: Otitis media Qualifiers: Otitis media type: serous Chronicity: acute Laterality: left Recurrence: non-recurrent Qualified Code(s): H65.02 - Acute serous otitis media, left ear Condition: Stable Prescriptions: New amoxicillin 500 mg capsule 500 mg PO BID 10 Days Qty: 20 0RF No Action trazodone 100 mg tablet 200 mg PO BEDTIME Qty: 60 2RF fluoxetine 40 mg capsule 80 mg PO DAILY Qty: 60 2RF albuterol sulfate 90 mcg/actuation aerosol powdr breath activated 2 inh INHALATION Q4H PRN (Reason: Shortness Of Breath) 0RF fluticasone propionate [Flonase Allergy Relief] 50 mcg/actuation spray,suspension 1 spray INTRANASAL BID PRN (Reason: UNKNOWN) 0RF zonisamide [Zonegran] 100 mg capsule 400 mg PO .HS 0RF (DME) Custom Molded Orthotics See Rx Instructions .Route .MEDSUPPLY Qty: 1 0RF Rx Instructions: As directed clopidogrel [Plavix] 75 mg tablet 75 mg PO DAILY 0RF hydrocodone-acetaminophen 5-325 mg tablet 1 tab PO BID 0RF oxybutynin chloride 15 mg tablet extended release 24hr 15 mg PO DAILY 0RF Rx Instructions: TAKE 1 TABLET BY MOUTH DAILY pantoprazole [Protonix] 40 mg tablet,delayed release (DR/EC) 40 mg PO BID Qty: 28 0RF spironolactone 50 mg Tablet 50 mg PO DAILY 0RF ondansetron 4 mg tablet,disintegrating 4 mg PO Q8H PRN (Reason: nausea and vomiting) Qty: 15 0RF Discharge Orders: Discharge ED (Routine); Ordered 08/16/21 Ordered By: Reese Hernandez Referrals: Cristina Martin DO [Primary Care Provider] - Discharge Diet: Regular Discharge Activity: Increase activity as tolerated Patient Instructions: Ear Infection (ED) Activity Restrictions/Additional Instructions: Follow-up with medical provider as directed in the next 7 to 10 days for reevaluation. Take medications as prescribed. Return to the ER or your medical provider if condition worsens. Please read and understand discharge instructions. Thank you for choosing [facility] for your healthcare needs today. Please realize this is an emergency room and that we are providing you with a medical screening exam and this may not be complete and all inclusive of all the testing and or work up that you may need to determine your ailment or severity of your illness. It is very important that you follow up as instructed or that you return to the Emergency Department should you have concerns or if your condition changes or worsens in any way. Stand Alone Forms: Work/School Release Coding Level of Care Code ED Clerk Stenographer for Kwasi Fwbrigitte Exam Comprehensive
--- NOTE | 2021-08-16 20:06 | CTR_ITS ---
PROCEDURE INFORMATION: Exam: CT Head Without Contrast Exam date and time: 08/16/2021 8:17 PM Age: 55 years old Clinical indication: Pain; Headache not specified; Patient HX: C/O L head/ear ache w facial numbness; Additional info: Left facial numbness and headache TECHNIQUE: Imaging protocol: Computed tomography of the head without contrast. Radiation optimization: All CT scans at this facility use at least one of these dose optimization techniques: automated exposure control; mA and/or kV adjustment per patient size (includes targeted exams where dose is matched to clinical indication); or iterative reconstruction. COMPARISON: 1. CT head wo con* [id number] 2020-02-17 19:[address] head wo con* [id number] 2018-10-03 12:55 RADIATION DOSE METRICS: Total DLP (mGy-cm): 757.93 FINDINGS: Brain: No midline shift, mass, fluid collection, or evidence of acute hemorrhage. Cerebral ventricles: No ventriculomegaly. Paranasal sinuses: Visualized sinuses are unremarkable. No fluid levels. Mastoid air cells: Visualized mastoid air cells are well aerated. Auditory system: Sparsely opacified left middle ear tenting inward the tympanic membrane, question mild otitis media. Bones/joints: Unremarkable. No acute fracture. Soft tissues: Unremarkable. CT/CT head wo con* [id number] IMPRESSION: 1. Sparsely opacified left middle ear tenting inward the tympanic membrane, question mild otitis media. 2. No acute intracranial abnormality.
[2021-08-16] MEDS: amoxicillin 500 mg Capsule PO (21:15)
[2021-08-16 21:35] VITALS: BP 138/78; PULSE 80; RESP 18; O2SAT 98
== END 2021-08-16 21:37 | disposition home or self-care (01) ==
PROVIDERS: Emergency Provider Physician Assistant; PCP Family Medicine
DX: H65.02 Acute serous otitis media, left ear (principal); Z79.02 Long term (current) use of antithrombotics/antiplatelets; Z79.891 Long term (current) use of opiate analgesic
CPT/HCPCS: 70450; 71045; 99283

== ENCOUNTER → 2021-08-25 15:09 | Outpatient (BNVA) | payer MEDICAID, SELFPAY | PROVIDERS: PCP Family Medicine; Visit Provider Surgery | DX: Z09 Encounter for follow-up examination after completed treatment for conditions other than malignant neoplasm (principal) | CPT/HCPCS: 99212 ==

== ENCOUNTER → 2021-08-26 14:45 | Outpatient (BNVA) | payer MEDICAID, SELFPAY | PROVIDERS: PCP Family Medicine; Visit Provider Counselor Professional | DX: F60.3 Borderline personality disorder (principal); F33.2 Major depressive disorder, recurrent severe without psychotic features | CPT/HCPCS: 90834 ==

== ENCOUNTER → 2021-09-17 14:41 | Outpatient (BNVA) | payer MEDICAID, SELFPAY | PROVIDERS: PCP Family Medicine; Visit Provider Counselor Professional | DX: F60.3 Borderline personality disorder (principal); F33.2 Major depressive disorder, recurrent severe without psychotic features | CPT/HCPCS: 90834 ==

== ENCOUNTER 2021-09-29 11:05 | Outpatient (CLI) | payer MEDICAID, SELFPAY ==
--- NOTE | 2021-09-29 11:23 | MR_ITS ---
WS: [id number] MRI LUMBAR SPINE NONCONTRAST TECHNIQUE: Sagittal T1, T2 and STIR imaging. Axial T1 and T2 imaging. CLINICAL INFORMATION: WEAKNESS OF ARMS LEGS/LUMBAR BACK PAIN W/RADICULOPATHY COMPARISON: MRI FINDINGS: Mild lumbar curve. No acute compression. No high-grade central canal stenosis. Disc space narrowing t hroughout the lumbar spine. L1-L2: Mild disc bulging and osteophytic ridging. Slight narrowing of the RIGHT subarticular recess. Mild RIGHT foraminal narrowing. Spinal canal and foramen are patent. L2-L3: Mild disc bulging with osteophytic ridging. Slight impingement RIGHT subarticular recess and t raversing RIGHT L3 nerve root. RIGHT eccentric disc bulging contacts the exiting RIGHT L2 nerve root. Mild to moderate RIGHT foraminal narrowing. LEFT foramen is patent. Mild facet arthropathy. L3-L4: Mild disc bulge with endplate ridging. Slight impingement on the LEFT subarticular recess and traversing LEFT L4 nerve root. Moderate facet arthropathy. LEFT eccentric disc bulging with mild to m oderate LEFT foraminal narrowing and slight impingement on the exiting LEFT L3 nerve root.. L4-L5: Mild annular bulging with LEFT subarticular disc protrusion. Slight impingement on the alicia ing LEFT L5 nerve root. Mild to moderate LEFT foraminal narrowing. RIGHT foramen is patent. Mild face t arthropathy. L5-S1: Disc osteophyte ridging with slight impingement traversing LEFT S1 nerve root. Mild LEFT britney inal narrowing. Mild facet arthropathy. Visualized pelvic bony structures: Normal. Paravertebral soft tissues: Normal. Tiny disc protrusions seen on the display fabrication supervisor imaging at C5-C6 and C6-C7. Shallow disc protrusions in the t horacic spine at T6-T7, T7-T8, T10-T11, T11-T12, T12-L1. MR/MR lumbar spine wo con* [id number] IMPRESSION: Overall no unremarkable changes since 1. Mild lumbar curve. No acute compression. No high-grade central canal stenos is. 2. Eccentric disc osteophytic ridging with mild to moderate foraminal narrowin g RIGHT L2-L3, LEFT L3-L4, and LEFT L4-L5 with contact of the exiting nerve zeferino ts at these levels respectively. 3. Slight impingement on the RIGHT subarticular recess RIGHT L1-L2. 4. Shallow LEFT pericentral disc bulging L4-L5 impinges the traversing LEFT L5 nerve root. 5. Shallow LEFT pericentral protrusion L5-S1 impinges the traversing LEFT S1 n erve root. Mild to moderate LEFT L5-S1 foraminal narrowing.
== END 2021-09-29 11:06 | disposition home or self-care (01) ==
LOC: RAD 11:12
PROVIDERS: PCP Family Medicine; Visit Provider Family Medicine
DX: M54.16 Radiculopathy, lumbar region (principal); M62.81 Muscle weakness (generalized); M79.605 Pain in left leg; M79.604 Pain in right leg; M25.78 Osteophyte, vertebrae; M51.27 Other intervertebral disc displacement, lumbosacral region
CPT/HCPCS: 72148

== ENCOUNTER 2021-09-30 23:50 | Emergency (ER) | payer MEDICAID, SELFPAY ==
[2021-09-30 23:53] VITALS: BP 132/79; PULSE 96; RESP 16; TEMP 37.6; O2SAT 97
[2021-09-30 23:59] VITALS: BP 146/86; PULSE 91; RESP 24; O2SAT 97
--- NOTE | 2021-10-01 01:16 | ED_ITS ---
HPI - General Adult General: Chief complaint: General Medical Stated complaint: general pain Time Seen by Provider: 10/01/21 01:16 History of Present Illness: 55-year-old female comes in today with multiple complaints. Patient reports a headache, body aches, knee pain. Patient reports that she thinks she might have a sinus headache but now thinks it might be due to a migraine. Review of the record notes patient has been in the ER 3 times this year for similar complaints. Patient had a CT of the head which showed some otitis media at the time. Patient also recently had a MRI of the back that showed some degenerative disc disease with bulging disc with mild foraminal stenosis. Patient also has osteoarthritis to both knees. Her blood work showed no significant changes. Patient also complains of stress incontinence which is chronic for patient. Associated symptoms: Deny chest pain or dyspnea Review of Systems General: Reports: 10 or more systems reviewed and unremarkable except in HPI and below ENMT: Reports: post nasal drip and sinus pain Card: Denies: chest pain Resp: Denies: dyspnea PFSH ED PFSH: Medical History Chronic constipation Hydronephrosis of right kidney Psychiatric care Sleep apnea with use of continuous positive airway pressure (CPAP) Urgency incontinence Urolithiasis Surgical History H/O esophagogastroduodenoscopy (06/24/21) gastric erosions H/O tubal ligation History of appendectomy Hx of cholecystectomy Status post colonoscopy (08/12/21) Status post laser lithotripsy of ureteral calculus Family History Brother Diabetes Father , unknown No problems noted. Other Cancer Social History Smoking and tobacco status: never smoked Second hand smoke exposure: No Alcohol intake: never Adopted: No Caregiver/support person: No Lives independently: No Marital status: Current occupational status: employed History of recent travel: No Current gender identity: Female Physical Exam Const: COMMON NORMALS: alert HENMT: FACE & SINUS: sinus tenderness Neck/C-Spine: COMMON NORMALS: full ROM Resp: COMMON NORMALS: normal respiratory effort and clear to auscultation bilaterally AUSCULTATION: clear to auscultation bilaterally Cardio: COMMON NORMALS: regular rate and regular rhythm RATE: regular rate RHYTHM: regular rhythm Extremity: COMMON NORMALS: normal to inspection Neuro: SENSORIUM/ORIENTATION: Yes alert Skin: COMMON NORMALS: no rashes or lesions noted GENERAL SKIN EXAM: no rashes or lesions noted Course Vital Signs: Vital signs: Vital Signs Temperature 99.7 F H 09/30/21 23:53 Pulse Rate 91 09/30/21 23:59 Respiratory Rate 24 H 09/30/21 23:59 Blood Pressure 146/86 09/30/21 23:59 Pulse Oximetry 97 09/30/21 23:59 [facility] - General Adult Medical Decision Making Patient comes in tonight with complaints of body aches, knee pain, back pain, and headache. Patient also reports some postnasal drip. On exam we do note some drainage in the posterior pharynx. Sinus pain with palpation. Bilateral TMs are normal. Muscle tenderness on the lumbar spine. Differential diagnosis includes but not limited to malingering, chronic back pain, osteoarthritis, sinusitis, anxiety. Reviewed patient recent labs and x-rays explaining the reasons for her pain and discomfort. Explained patient that she has bilateral knee pain and that she will Pain in her knees worse at sometimes and that the best thing for them is to stay mobile as much as possible. Patient also has chronic back pain and degenerative disc disease which will lead to more discomfort but nothing appeared significant at that time for treatment. Patient CT of the head was normal. And her lab work has been normal. We recheck patient's urine tonight to rule out infection and no signs of significant infection was noted. Due to patient's sinus headache we went ahead and gave her a migraine cocktail and we will treat with doxycycline for a rhinosinusitis. Patient reported understanding and agreed to plan. Lab Data Laboratory Results Urine Color Yellow (Yellow) 10/01/21 01:35 Urine Appearance Clear (CLEAR) 10/01/21 01:35 Urine pH 7 (5-7) 10/01/21 01:35 Ur Specific [place] 1.010 (1.005-1.030) 10/01/21 01:35 Urine Protein Neg (Negative) 10/01/21 01:35 Urine Glucose (UA) Norm (Normal) 10/01/21 01:35 Urine Ketones Negative (Negative) 10/01/21 01:35 Urine Blood Neg (Negative) 10/01/21 01:35 Urine Nitrate Negative (Negative) 10/01/21 01:35 Urine Bilirubin Neg (Negative) 10/01/21 01:35 Urine Urobilinogen 4 mg/dL (Negative) H 10/01/21 01:35 Ur Leukocyte Esterase 2+ (Negative) H 10/01/21 01:35 Urine RBC 0-4 /hpf (0-2) H 10/01/21 01:35 Urine WBC 5-10 /hpf (0-5) H 10/01/21 01:35 Ur Squamous Epith Cells 5-10 /hpf (0-5) H 10/01/21 01:35 Amorphous Sediment 2+ /hpf 10/01/21 01:35 Urine Bacteria Trace /hpf (NONE) 10/01/21 01:35 Discharge Plan Discharge Patient Disposition: Home Clinical Impression: PND (post-nasal drip), Acute rhinosinusitis, Urgency incontinence Condition: Stable Prescriptions: New doxycycline monohydrate 100 mg capsule 100 mg PO BID 7 Days Qty: 14 0RF Continued hydrocodone-acetaminophen 5-325 mg tablet 1 tab PO BID Qty: 6 0RF No Action trazodone 100 mg tablet 200 mg PO BEDTIME Qty: 60 2RF fluoxetine 40 mg capsule 80 mg PO DAILY Qty: 60 2RF albuterol sulfate 90 mcg/actuation aerosol powdr breath activated 2 inh INHALATION Q4H PRN (Reason: Shortness Of Breath) 0RF fluticasone propionate [Flonase Allergy Relief] 50 mcg/actuation spray,suspension 1 spray INTRANASAL BID PRN (Reason: UNKNOWN) 0RF zonisamide [Zonegran] 100 mg capsule 400 mg PO .HS 0RF (DME) Custom Molded Orthotics See Rx Instructions .Route .MEDSUPPLY Qty: 1 0RF Rx Instructions: As directed clopidogrel [Plavix] 75 mg tablet 75 mg PO DAILY 0RF oxybutynin chloride 15 mg tablet extended release 24hr 15 mg PO DAILY 0RF Rx Instructions: TAKE 1 TABLET BY MOUTH DAILY pantoprazole [Protonix] 40 mg tablet,delayed release (DR/EC) 40 mg PO BID Qty: 28 0RF spironolactone 50 mg Tablet 50 mg PO DAILY 0RF ondansetron 4 mg tablet,disintegrating 4 mg PO Q8H PRN (Reason: nausea and vomiting) Qty: 15 0RF Discharge Orders: Discharge ED (Routine); Ordered 10/01/21 Ordered By: José Reyes Referrals: Cristina Martin DO [Primary Care Provider] - Discharge Diet: Usual diet Discharge Activity: Increase activity as tolerated Patient Instructions: Sinusitis (ED) Activity Restrictions/Additional Instructions: Continue with routine medications. Take antibiotic twice a day for the next 7 days for your sinus infection. Drink plenty of water with medication. Use your Flonase nasal spray 1 spray each nostril twice a day to help with nasal drainage and sinus headache. Use acetaminophen or ibuprofen for further pain. Use hydrocodone for severe pain. Follow-up with primary care for further instruction and evaluation. Stand Alone Forms: Work/School Release Coding Level of Care Code ED Director Of Hotel Operations for Kwasi Arzola
[2021-10-01] MEDS: HYDROcodone-acetaminophen 7.5-325 mg Tablet 1 TAB PO (01:41)
[2021-10-01 01:49] LABS: Add Urine Culture? No; Add Urine Microscopic? YES; Amorphous Sediment Urine 2+ /hpf; Bacteria Urine TRACE /hpf; Bilirubin Urine Neg (Negative); Blood Urine Neg (Negative); Glucose Urine UA Norm (Normal); Ketones Urine Negative (Negative); Leukocyte Esterase Urine 2+ (Negative); Nitrate Urine Negative (Negative); Protein Urine Neg (Negative); RBC Urine 0-4 /hpf (0-2); Urine Appearance Clear (CLEAR); Urine Color Yellow (Yellow); Urobilinogen Urine 4 mg/dL (Negative); pH Urine 7 (5-7)
[2021-10-01 01:59] VITALS: BP 100/66; PULSE 80; RESP 16; O2SAT 99
[2021-10-01] MEDS: ketorolac 30 mg/mL INJ IM (02:20)
[2021-10-01] MEDS: dexamethasone 10 mg/mL INJ IM (02:20)
[2021-10-01] MEDS: metoclopramide 5 mg/mL SDV 2 mL 10 MG IM (02:20)
[2021-10-01 02:21] VITALS: BP 100/66; PULSE 80; RESP 16; O2SAT 99
== END 2021-10-01 02:26 | disposition home or self-care (01) ==
PROVIDERS: Emergency Provider Nurse Practitioner Family; PCP Family Medicine
DX: J01.90 Acute sinusitis, unspecified (principal); N39.41 Urge incontinence; R09.82 Postnasal drip; Z79.02 Long term (current) use of antithrombotics/antiplatelets
CPT/HCPCS: 81001; 96372; 99284; J1100; J1885; J2765

== ENCOUNTER → 2021-10-01 14:45 | Outpatient (BNVA) | payer MEDICAID, SELFPAY | PROVIDERS: PCP Family Medicine; Visit Provider Counselor Professional | DX: F60.3 Borderline personality disorder (principal); F33.2 Major depressive disorder, recurrent severe without psychotic features | CPT/HCPCS: 90834 ==

== ENCOUNTER 2021-10-05 18:43 | Emergency (ER) | payer MEDICAID, SELFPAY ==
--- NOTE | 2021-10-05 18:52 | XRR_ITS ---
PROCEDURE INFORMATION: Exam: XR Chest Exam date and time: 10/05/2021 7:28 PM Age: 55 years old Clinical indication: Cough TECHNIQUE: Imaging protocol: Radiologic exam of the chest. Views: 1 view. COMPARISON: CR XR chest 1V portable [id number] 08/16/2021 8:05 PM FINDINGS: Lungs: Unremarkable. No consolidation. Pleural spaces: Unremarkable. No pleural effusion. No pneumothorax. Heart/Mediastinum: Unremarkable. No cardiomegaly. Bones/joints: Unremarkable. XR/XR chest 1V portable [id number] IMPRESSION: No acute findings.
[2021-10-05 18:59] VITALS: BP 133/92; PULSE 89; RESP 18; TEMP 36.4; O2SAT 96; BMI 29.9
--- NOTE | 2021-10-05 19:13 | ED_ITS ---
HPI - General Adult General: Chief complaint: General Medical Stated complaint: chest congestion Time Seen by Provider: 10/05/21 19:04 Source: patient Mode of arrival: ambulatory Limitations: no limitations History of Present Illness: 55-year-old female states she has been having nasal congestion and cough for roughly a week. She was seen here on the and diagnosed with a sinus infection she states she was prescribed antibiotics and she is at the end of his antibiotics but states that she is now developed a nonproductive cough. Patient denies any shortness of breath she is in no distress here she has been afebrile denies any vomiting or diarrhea. Denies any worsening or improving factors. Associated symptoms: Deny chest pain, headache(s), nausea, rash or vomiting Review of Systems Const: Denies: fever(s), chills, body aches or change in appetite Eyes: Denies: blurry vision or eye discomfort ENMT: Reports: nasal congestion Card: Denies: chest pain Resp: Reports: non-productive cough GI: Denies: abdominal pain, nausea, vomiting or diarrhea : Denies: dysuria Musc: Denies: neck pain or back pain Skin/Breast: Denies: rash Neuro: Denies: headache(s) Psych: Denies: depression Saeed/Lymph: Denies: easy bruising All/Imm: Denies: urticaria PFSH ED PFSH: Medical History Chronic constipation Hydronephrosis of right kidney Psychiatric care Sleep apnea with use of continuous positive airway pressure (CPAP) Urgency incontinence Urolithiasis Surgical History H/O esophagogastroduodenoscopy (06/24/21) gastric erosions H/O tubal ligation History of appendectomy Hx of cholecystectomy Status post colonoscopy (08/12/21) Status post laser lithotripsy of ureteral calculus Family History Brother Diabetes Father , unknown No problems noted. Other Cancer Social History Smoking and tobacco status: never smoked Second hand smoke exposure: No Alcohol intake: never Adopted: No Caregiver/support person: No Lives independently: No Marital status: Current occupational status: employed History of recent travel: No Current gender identity: Female Physical Exam Const: COMMON NORMALS: no acute distress, patient oriented x3 and healthy appearing HENMT: COMMON NORMALS: normocephalic and atraumatic HEAD & SCALP: normocephalic and atraumatic Eye: COMMON NORMALS: Equal, round and reactive pupils present and EOMs intact bilaterally PUPIL: Yes Equal, round and reactive pupils present Neck/C-Spine: COMMON NORMALS: full ROM and supple Chest: COMMONS NORMALS: normal inspection of the chest and normal palpation of entire chest wall Resp: COMMON NORMALS: normal respiratory effort, No retractions, No use of accessory muscles and clear to auscultation bilaterally AUSCULTATION: clear to auscultation bilaterally Cardio: COMMON NORMALS: regular rate, regular rhythm and No murmurs present (Cardio) RATE: regular rate RHYTHM: regular rhythm GI: COMMON NORMALS: Normal to inspection, nondistended, normoactive bowel sounds present, Soft to palpation, non-tender and no masses PALPATION: Yes Soft to palpation Extremity: COMMON NORMALS: normal to inspection and full ROM Neuro: COMMON NORMALS: patient oriented x3, moves all extremities and no focal motor deficits Psych: COMMON NORMALS: mental status grossly normal, Normal thought process present and cooperative THOUGHT PROCESS: Normal thought process present Skin: COMMON NORMALS: no rashes or lesions noted and no wounds GENERAL SKIN EXAM: no rashes or lesions noted Course Vital Signs: Vital signs: Vital Signs Temperature 97.6 F 10/05/21 18:59 Pulse Rate 89 10/05/21 18:59 Respiratory Rate 18 10/05/21 18:59 Blood Pressure 133/92 10/05/21 18:59 Pulse Oximetry 96 10/05/21 18:59 [facility] - General Adult Medical Decision Making Patient presents with cough congestion likely a viral upper respiratory infection she is well-appearing here in no distress chest x-ray is normal her vital signs are normal she is stable for discharge she is to follow-up with her PCP and return if worsening she understands agrees to plan. EKG Data EKG 1: I personally reviewed and interpreted this EKG as follows: EKG interpretation date: 10/05/21 EKG interpretation time: 19:06 Interpretation: nsr hr [address] or t wave abnormalities qrs 85 qtc 392 Discharge Plan Discharge Patient Disposition: Home Clinical Impression: Upper respiratory infection Condition: Stable Prescriptions: No Action trazodone 100 mg tablet 200 mg PO BEDTIME Qty: 60 2RF fluoxetine 40 mg capsule 80 mg PO DAILY Qty: 60 2RF albuterol sulfate 90 mcg/actuation aerosol powdr breath activated 2 inh INHALATION Q4H PRN (Reason: Shortness Of Breath) 0RF fluticasone propionate [Flonase Allergy Relief] 50 mcg/actuation spray,suspension 1 spray INTRANASAL BID PRN (Reason: UNKNOWN) 0RF zonisamide [Zonegran] 100 mg capsule 400 mg PO .HS 0RF (DME) Custom Molded Orthotics See Rx Instructions .Route .MEDSUPPLY Qty: 1 0RF Rx Instructions: As directed clopidogrel [Plavix] 75 mg tablet 75 mg PO DAILY 0RF oxybutynin chloride 15 mg tablet extended release 24hr 15 mg PO DAILY 0RF Rx Instructions: TAKE 1 TABLET BY MOUTH DAILY pantoprazole [Protonix] 40 mg tablet,delayed release (DR/EC) 40 mg PO BID Qty: 28 0RF spironolactone 50 mg Tablet 50 mg PO DAILY 0RF ondansetron 4 mg tablet,disintegrating 4 mg PO Q8H PRN (Reason: nausea and vomiting) Qty: 15 0RF doxycycline monohydrate 100 mg capsule 100 mg PO BID 7 Days Qty: 14 0RF hydrocodone-acetaminophen 5-325 mg tablet 1 tab PO BID Qty: 6 0RF Discharge Orders: Discharge ED (Routine); Ordered 10/05/21 Ordered By: Elizabeth Vega Referrals: Cristina Martin DO [Primary Care Provider] - 1-3 days Discharge Diet: Advance as tolerated Discharge Activity: Resume usual activity Patient Instructions: Upper Respiratory Infection (ED) Stand Alone Forms: Work/School Release Coding Level of Care Code ED Controls Operator [employer] for Rushg Fwd Exam Comprehensive
[2021-10-05] MEDS: dexamethasone 10 mg/mL INJ IM (19:21)
[2021-10-05 21:25] LABS: Adenovirus Not Detected (NOT DETECT); Chlamydia Pneumoniae Not Detected (NOT DETECT); Coronavirus 229E,HKU1,NL63,OC4 Not Detected (NOT DETECT); Human Metapneumovirus Not Detected (NOT DETECT); Human Rhinovirus/Enterovirus Not Detected (NOT DETECT); Influenza A Not Detected (NOT DETECT); Influenza A H1 Not Detected (NOT DETECT); Influenza A H1-2009 Not Detected (NOT DETECT); Influenza A H3 Not Detected (NOT DETECT); Influenza B Not Detected (NOT DETECT); Mycoplasma Pneumoniae Not Detected (NOT DETECT); Parainfluenza Virus Type 1 Not Detected (NOT DETECT); Parainfluenza Virus Type 2 Not Detected (NOT DETECT); Parainfluenza Virus Type 3 Not Detected (NOT DETECT); Parainfluenza Virus Type 4 Not Detected (NOT DETECT); Respiratory Syncytial Virus A Not Detected (NOT DETECT); Respiratory Syncytial Virus B Not Detected (NOT DETECT); SARS-COV-2 Detected (NOT DETECT)
== END 2021-10-05 19:45 | disposition home or self-care (01) ==
PROVIDERS: Emergency Provider Emergency Medicine; PCP Family Medicine
DX: J06.9 Acute upper respiratory infection, unspecified (principal); Z79.02 Long term (current) use of antithrombotics/antiplatelets
CPT/HCPCS: 71045; 87635; 96372; 99284; J1100

== ENCOUNTER 2021-10-21 07:16 | Outpatient (CLI) | payer MEDICAID, SELFPAY ==
--- NOTE | 2021-10-21 07:15 | XR_ITS ---
WS: [id number] XR KUB [id number] REASON FOR EXAM: UROLITHIASIS FINDINGS: No calculi are identified overlying the kidneys, ureters, or bladder. Remainder of the abdomen and pelvis is unremarkable. XR/XR KUB [id number] IMPRESSION: No urinary tract calculi identified.
== END 2021-10-21 07:17 | disposition home or self-care (01) ==
PROVIDERS: PCP Family Medicine; Visit Provider Urology
DX: N39.41 Urge incontinence (principal); N20.2 Calculus of kidney with calculus of ureter
CPT/HCPCS: 51798; 74018; 81003; 99213

== ENCOUNTER 2021-10-22 09:09 | Emergency (ER) | payer MEDICAID, SELFPAY ==
[2021-10-22] VITALS (19 sets, daily range): BP systolic 99–169; BP diastolic 45–98; PULSE 65–72; RESP 16–18; TEMP 36.5; O2SAT 94–98; BMI 29.2
--- NOTE | 2021-10-22 10:00 | ED_ITS ---
Documented by User: MAI Becerra 10/22/21 13:40 HPI - Abdominal Pain General: Chief Complaint: Abdominal Pain Stated Complaint: Lower right abd pain Time Seen by Provider: 10/22/21 09:12 History of Present Illness: Patient is a 56-year-old female comes to the ED with abdominal pain. Symptoms started this morning when she woke up. She rates her abdominal pain currently a 10 out of 10 and is located in the right lower quadrant of the abdomen. Past surgical history of cholecystectomy and appendectomy. Patient has a history of kidney stones as well. Denies any worsening or improving factors. She endorses having some nausea and one episode of emesis this morning. Denies any fever, chills, chest pain, diarrhea, constipation, blood in stool, dysuria or hematuria. Associated Symptoms: Reports nausea and vomiting; Denies chills, constipation, diarrhea, dysuria, fever(s), hematochezia and hematuria Review of Systems Const: Denies: fever(s), chills or fatigue Eyes: Denies: change in vision or eye discomfort ENMT: Denies: throat pain, odynophagia, nasal discharge or nasal congestion Card: Denies: chest pain, palpitations, edema, swelling of feet/ankles, dyspnea on exertion or orthopnea Resp: Denies: dyspnea, productive cough or non-productive cough GI: Reports: abdominal pain, nausea and vomiting; Denies: diarrhea, constipation or hematochezia : Denies: flank pain, dysuria or hematuria Musc: Denies: neck pain, back pain or extremity swelling Skin/Breast: Denies: rash or new lesions Neuro: Denies: headache(s), numbness in extremities or weakness in extremities PFSH ED PFSH: Medical History Chronic constipation Hydronephrosis of right kidney Psychiatric care Sleep apnea with use of continuous positive airway pressure (CPAP) Urgency incontinence Urolithiasis Surgical History H/O esophagogastroduodenoscopy (06/24/21) gastric erosions H/O tubal ligation History of appendectomy Hx of cholecystectomy Status post colonoscopy (08/12/21) Status post laser lithotripsy of ureteral calculus Family History Brother Diabetes Father , unknown No problems noted. Other Cancer Social History Smoking and tobacco status: never smoked Second hand smoke exposure: No Alcohol intake: never Adopted: No Caregiver/support person: No Lives independently: No Marital status: Current occupational status: employed History of recent travel: No Current gender identity: Female Physical Exam Const: COMMON NORMALS: patient oriented x3 and alert GENERAL APPEARANCE: cooperative HENMT: COMMON NORMALS: normocephalic HEAD & SCALP: normocephalic MOUTH: Normal oral and palatal mucosa present THROAT: posterior oropharynx normal and uvula midline Neck/C-Spine: COMMON NORMALS: supple GENERAL: Yes normal visual inspection Resp: COMMON NORMALS: normal respiratory effort, No retractions, No use of accessory muscles and clear to auscultation bilaterally AUSCULTATION: clear to auscultation bilaterally Cardio: COMMON NORMALS: regular rate, regular rhythm, S1 normal heart sound present, S2 normal heart sound present, No gallops present (Cardio), No clicks present (Cardio), No murmurs present (Cardio) and Peripheral pulses 2+ throughout RATE: regular rate RHYTHM: regular rhythm HEART SOUNDS: S1 normal heart sound present and S2 normal heart sound present PERIPHERAL PULSES: Peripheral pulses 2+ throughout GI: COMMON NORMALS: Normal to inspection, nondistended, normoactive bowel sounds present, Soft to palpation, non-tender and no masses PALPATION: Yes Soft to palpation : BLADDER/KIDNEY EXAM: Yes CVA tenderness Back/Pelvis: GENERAL BACK: Yes CVA tenderness CVA tenderness: right Extremity: COMMON NORMALS: normal to inspection Neuro: COMMON NORMALS: patient oriented x3 SENSORIUM/ORIENTATION: Yes alert GAIT: Yes Normal gait present Skin: GENERAL SKIN EXAM: dry skin Course Vital Signs: Vital signs: Vital Signs Temperature 97.7 F 10/22/21 09:44 Pulse Rate 72 10/22/21 11:43 Respiratory Rate 16 10/22/21 11:43 Blood Pressure 99/59 10/22/21 13:15 Pulse Oximetry 94 10/22/21 13:15 MDM - Abdominal Pain Medical Decision Making Patient is a 56-year-old female comes to the ED with abdominal pain. Symptoms started this morning when she woke up. She rates her abdominal pain currently a 10 out of 10 and is located in the right lower quadrant of the abdomen. Vitals are stable. She appears nontoxic in no acute distress. She has some right CVA tenderness along with some right lower quadrant of the abdomen tenderness. Rest of exam is benign. CBC and CMP were unremarkable. UA showed a lot of red blood cells and oxalate crystals noted. CT of abdomen pelvis showed a 2 mm distal right ureter stone with evidence of obstruction. She is given IV morphine, fluids and Zofran here in the ED and her pain was controlled. I placed order with case management for patient referred to Dr. Cuello for follow-up on kidney stone. Return to ED precautions given. Patient was discharged home with a prescription for [place] and Zofran. Lab Data I reviewed the patient's lab results. : 10/22/21 10:29 10/22/21 10:29 Labs/Radiology: Radiology Impressions Abdomen/Pelvis CT 10/22/21 10:07 IMPRESSION: 2 mm calculus in the distal one third RIGHT ureter with evidence of obstruction described above Notified MAI Becerra at 10/22/2021 11:10 AM. Laboratory Results WBC 9.3 10^3/uL (4.0-10.0) 10/22/21 10:29 RBC 4.85 10^6/uL (4.1-5.3) 10/22/21 10:29 Hgb 14.2 g/dL (11.5-15.3) 10/22/21 10:29 Hct 45.2 % (37.0-47.0) 10/22/21 10:29 MCV 93.2 fl (81-99) 10/22/21 10:29 MCH 29.3 pg (28.0-34.0) 10/22/21 10:29 MCHC 31.4 g/dL (30.0-36.0) 10/22/21 10:29 RDW 13.4 % (12.1-15.1) 10/22/21 10:29 Plt Count 356 10^3/cmm (130-400) 10/22/21 10:29 MPV 9.6 fL (7.4-10.4) 10/22/21 10:29 Neut % (Auto) 83.3 % 10/22/21 10:29 Lymph % (Auto) 10.2 % 10/22/21 10:29 [place] % (Auto) 5.5 % 10/22/21 10:29 Eos % (Auto) 0.5 % 10/22/21 10:29 Baso % (Auto) 0.3 % 10/22/21 10:29 Neut # (Auto) 7.77 10^3/uL (1.8-7.7) H 10/22/21 10:29 Lymph # (Auto) 1.0 10^3/uL (0.8-4.8) 10/22/21 10:29 [place] # (Auto) 0.5 10^3/uL (0.2-0.9) 10/22/21 10:29 Eos # (Auto) 0.1 10^3/uL (0.0-0.8) 10/22/21 10:29 Baso # (Auto) 0.0 10^3/uL (0.0-0.1) 10/22/21 10:29 Nucleated RBC % (auto) 0 % 10/22/21 10:29 Nucleated RBCs # 0.0 /100WBC 10/22/21 10:29 Sodium 139 mmol/L (136-145) 10/22/21 10:29 Potassium 3.8 mmol/L (3.5-5.1) 10/22/21 10:29 Chloride 104 mmol/L (98-107) 10/22/21 10:29 Carbon Dioxide 22 mmol/L (22-29) 10/22/21 10:29 Anion Gap 16.8 (5-19) 10/22/21 10:29 BUN 9 mg/dL (6-20) 10/22/21 10:29 Creatinine 0.8 mg/dL (0.5-0.9) 10/22/21 10:29 GFR Calculation 74.5 mL/min (90-130) L 10/22/21 10:29 Glucose 110 mg/dL (65-115) 10/22/21 10:29 Calculated Osmolality 287 mOsm/kg (285-295) 10/22/21 10:29 Calcium 9.3 mg/dL (8.5-10.5) 10/22/21 10:29 Total Bilirubin 0.3 mg/dL (0.15-1.2) 10/22/21 10:29 AST 22 U/L (0-32) 10/22/21 10:29 ALT 25 U/L (0-33) 10/22/21 10:29 Alkaline Phosphatase 116 IU/L (35-105) H 10/22/21 10:29 Total Protein 6.9 g/dL (6.6-8.7) 10/22/21 10:29 Albumin 4.1 g/dL (3.5-5.2) 10/22/21 10:29 Globulin 2.8 g/dL (1.3-4.6) 10/22/21 10:29 Lipase 37 U/L (13-60) 10/22/21 10:29 Urine Color Yellow (Yellow) 10/22/21 10:24 Urine Appearance Hazy (CLEAR) A 10/22/21 10:24 Urine pH 6.5 (5-7) 10/22/21 10:24 Ur Specific Lewis 1.015 (1.005-1.030) 10/22/21 10:24 Urine Protein Neg (Negative) 10/22/21 10:24 Urine Glucose (UA) Norm (Normal) 10/22/21 10:24 Urine Ketones Negative (Negative) 10/22/21 10:24 Urine Blood 3+ (Negative) H 10/22/21 10:24 Urine Nitrate Negative (Negative) 10/22/21 10:24 Urine Bilirubin 1+ (Negative) H 10/22/21 10:24 Urine Urobilinogen Norm mg/dL (Negative) 10/22/21 10:24 Ur Leukocyte Esterase Negative (Negative) 10/22/21 10:24 Urine RBC Too numerous to cnt /hpf (0-2) H 10/22/21 10:24 Urine WBC 0-4 /hpf (0-5) H 10/22/21 10:24 Ur Squamous Epith Cells 0-4 /hpf (0-5) H 10/22/21 10:24 Calcium Oxalate Crystal 10-15 /hpf H 10/22/21 10:24 Amorphous Sediment Not Reportable 10/22/21 10:24 Urine Bacteria None /hpf (NONE) 10/22/21 10:24 Fine Granular Casts 0-4 /lpf H 10/22/21 10:24 Discharge Plan Discharge Patient Disposition: Home Clinical Impression: Kidney stone on right side Condition: Stable Prescriptions: New ondansetron 4 mg tablet,disintegrating 4 mg PO Q8H PRN (Reason: nausea and vomiting) Qty: 12 0RF No Action trazodone 100 mg tablet 200 mg PO BEDTIME Qty: 60 2RF fluoxetine 40 mg capsule 80 mg PO DAILY Qty: 60 2RF albuterol sulfate 90 mcg/actuation aerosol powdr breath activated 2 inh INHALATION Q4H PRN (Reason: Shortness Of Breath) 0RF fluticasone propionate [Flonase Allergy Relief] 50 mcg/actuation spray,suspension 1 spray INTRANASAL BID PRN (Reason: Allergy Symptoms) 0RF zonisamide [Zonegran] 100 mg capsule 400 mg PO BEDTIME 0RF (DME) Custom Molded Orthotics See Rx Instructions .Route .MEDSUPPLY Qty: 1 0RF Rx Instructions: As directed clopidogrel [Plavix] 75 mg tablet 75 mg PO DAILY 0RF leflunomide 20 mg tablet 20 mg PO DAILY 0RF solifenacin [Vesicare] 10 mg tablet 10 mg PO DAILY Qty: 30 12RF pantoprazole [Protonix] 40 mg tablet,delayed release (DR/EC) 40 mg PO BID Qty: 28 0RF spironolactone 50 mg Tablet 50 mg PO DAILY 0RF ondansetron 4 mg tablet,disintegrating 4 mg PO Q8H PRN (Reason: nausea and vomiting) Qty: 15 0RF oxybutynin chloride 15 mg Tablet Extended Release 24hr 15 mg PO DAILY 0RF prednisone 5 mg Tablet 5 mg PO DAILY 0RF Discharge Orders: Discharge ED (Routine); Ordered 10/22/21 Ordered By: Reese Hernandez Referrals: Cristina Martin DO [Primary Care Provider] - Discharge Diet: Regular Discharge Activity: Increase activity as tolerated Patient Instructions: Kidney Stones (ED), How to Strain Your Urine (ED), Opioid Safety Activity Restrictions/Additional Instructions: Follow-up with medical provider as directed. Case management should be contacting you in the next several days to set up an appointment with Dr. Cuello the urologist. Strain urine to catch stone and drink lots of fluid to stay hydrated and help pass stone. Take medications as prescribed. You can take Tylenol per bottle instruction for any pain or fevers. Return to the ER or your medical provider if condition worsens. Please read and understand discharge instructions. If any questions, please ask. Stand Alone Forms: Work/School Release Coding Level of Care Code ED Drycleaner for Chg Fwd Exam Comprehensive Documented by User: Terence Biggs DO 10/22/21 14:28 HPI - Abdominal Pain General: Chief Complaint: Abdominal Pain Stated Complaint: Lower right abd pain Time Seen by Provider: 10/22/21 09:12 PFSH ED PFSH: Medical History Chronic constipation Hydronephrosis of right kidney Psychiatric care Sleep apnea with use of continuous positive airway pressure (CPAP) Urgency incontinence Urolithiasis Surgical History H/O esophagogastroduodenoscopy (06/24/21) gastric erosions H/O tubal ligation History of appendectomy Hx of cholecystectomy Status post colonoscopy (08/12/21) Status post laser lithotripsy of ureteral calculus Family History Brother Diabetes Father , unknown No problems noted. Other Cancer Social History Smoking and tobacco status: never smoked Second hand smoke exposure: No Alcohol intake: never Adopted: No Caregiver/support person: No Lives independently: No Marital status: Current occupational status: employed History of recent travel: No Current gender identity: Female Course Vital Signs: Vital signs: Vital Signs Temperature 97.7 F 10/22/21 09:44 Pulse Rate 72 10/22/21 11:43 Respiratory Rate 16 10/22/21 11:43 Blood Pressure 99/59 10/22/21 13:15 Pulse Oximetry 94 10/22/21 13:15 MDM - Abdominal Pain Medical Decision Making Patient is a 56-year-old female comes to the ED with abdominal pain. Symptoms started this morning when she woke up. She rates her abdominal pain currently a 10 out of 10 and is located in the right lower quadrant of the abdomen. Vitals are stable. She appears nontoxic in no acute distress. She has some right CVA tenderness along with some right lower quadrant of the abdomen tenderness. Rest of exam is benign. CBC and CMP were unremarkable. UA showed a lot of red blood cells and oxalate crystals noted. CT of abdomen pelvis showed a 2 mm distal right ureter stone with evidence of obstruction. She is given IV morphine, fluids and Zofran here in the ED and her pain was controlled. I placed order with case management for patient referred to Dr. Cuello for follow-up on kidney stone. Return to ED precautions given. Patient was discharged home with a prescription for [place] and Zofran. Chart reviewed and patient discussed with midlevel. Agree with assessment and plan. Lab Data : 10/22/21 10:29 10/22/21 10:29 Labs/Radiology: Radiology Impressions Abdomen/Pelvis CT 10/22/21 10:07 IMPRESSION: 2 mm calculus in the distal one third RIGHT ureter with evidence of obstruction described above Notified MAI Becerra at 10/22/2021 11:10 AM. Laboratory Results WBC 9.3 10^3/uL (4.0-10.0) 10/22/21 10:29 RBC 4.85 10^6/uL (4.1-5.3) 10/22/21 10:29 Hgb 14.2 g/dL (11.5-15.3) 10/22/21 10:29 Hct 45.2 % (37.0-47.0) 10/22/21 10:29 MCV 93.2 fl (81-99) 10/22/21 10:29 MCH 29.3 pg (28.0-34.0) 10/22/21 10:29 MCHC 31.4 g/dL (30.0-36.0) 10/22/21 10:29 RDW 13.4 % (12.1-15.1) 10/22/21 10:29 Plt Count 356 10^3/cmm (130-400) 10/22/21 10:29 MPV 9.6 fL (7.4-10.4) 10/22/21 10:29 Neut % (Auto) 83.3 % 10/22/21 10:29 Lymph % (Auto) 10.2 % 10/22/21 10:29 [place] % (Auto) 5.5 % 10/22/21 10:29 Eos % (Auto) 0.5 % 10/22/21 10:29 Baso % (Auto) 0.3 % 10/22/21 10:29 Neut # (Auto) 7.77 10^3/uL (1.8-7.7) H 10/22/21 10:29 Lymph # (Auto) 1.0 10^3/uL (0.8-4.8) 10/22/21 10:29 [place] # (Auto) 0.5 10^3/uL (0.2-0.9) 10/22/21 10:29 Eos # (Auto) 0.1 10^3/uL (0.0-0.8) 10/22/21 10:29 Baso # (Auto) 0.0 10^3/uL (0.0-0.1) 10/22/21 10:29 Nucleated RBC % (auto) 0 % 10/22/21 10:29 Nucleated RBCs # 0.0 /100WBC 10/22/21 10:29 Sodium 139 mmol/L (136-145) 10/22/21 10:29 Potassium 3.8 mmol/L (3.5-5.1) 10/22/21 10:29 Chloride 104 mmol/L (98-107) 10/22/21 10:29 Carbon Dioxide 22 mmol/L (22-29) 10/22/21 10:29 Anion Gap 16.8 (5-19) 10/22/21 10:29 BUN 9 mg/dL (6-20) 10/22/21 10:29 Creatinine 0.8 mg/dL (0.5-0.9) 10/22/21 10:29 GFR Calculation 74.5 mL/min (90-130) L 10/22/21 10:29 Glucose 110 mg/dL (65-115) 10/22/21 10:29 Calculated Osmolality 287 mOsm/kg (285-295) 10/22/21 10:29 Calcium 9.3 mg/dL (8.5-10.5) 10/22/21 10:29 Total Bilirubin 0.3 mg/dL (0.15-1.2) 10/22/21 10:29 AST 22 U/L (0-32) 10/22/21 10:29 ALT 25 U/L (0-33) 10/22/21 10:29 Alkaline Phosphatase 116 IU/L (35-105) H 10/22/21 10:29 Total Protein 6.9 g/dL (6.6-8.7) 10/22/21 10:29 Albumin 4.1 g/dL (3.5-5.2) 10/22/21 10:29 Globulin 2.8 g/dL (1.3-4.6) 10/22/21 10:29 Lipase 37 U/L (13-60) 10/22/21 10:29 Urine Color Yellow (Yellow) 10/22/21 10:24 Urine Appearance Hazy (CLEAR) A 10/22/21 10:24 Urine pH 6.5 (5-7) 10/22/21 10:24 Ur Specific [place] 1.015 (1.005-1.030) 10/22/21 10:24 Urine Protein Neg (Negative) 10/22/21 10:24 Urine Glucose (UA) Norm (Normal) 10/22/21 10:24 Urine Ketones Negative (Negative) 10/22/21 10:24 Urine Blood 3+ (Negative) H 10/22/21 10:24 Urine Nitrate Negative (Negative) 10/22/21 10:24 Urine Bilirubin 1+ (Negative) H 10/22/21 10:24 Urine Urobilinogen Norm mg/dL (Negative) 10/22/21 10:24 Ur Leukocyte Esterase Negative (Negative) 10/22/21 10:24 Urine RBC Too numerous to cnt /hpf (0-2) H 10/22/21 10:24 Urine WBC 0-4 /hpf (0-5) H 10/22/21 10:24 Ur Squamous Epith Cells 0-4 /hpf (0-5) H 10/22/21 10:24 Calcium Oxalate Crystal 10-15 /hpf H 10/22/21 10:24 Amorphous Sediment Not Reportable 10/22/21 10:24 Urine Bacteria None /hpf (NONE) 10/22/21 10:24 Fine Granular Casts 0-4 /lpf H 10/22/21 10:24 Discharge Plan Discharge Patient Disposition: Home Clinical Impression: Kidney stone on right side Condition: Stable Prescriptions: New ondansetron 4 mg tablet,disintegrating 4 mg PO Q8H PRN (Reason: nausea and vomiting) Qty: 12 0RF No Action trazodone 100 mg tablet 200 mg PO BEDTIME Qty: 60 2RF fluoxetine 40 mg capsule 80 mg PO DAILY Qty: 60 2RF albuterol sulfate 90 mcg/actuation aerosol powdr breath activated 2 inh INHALATION Q4H PRN (Reason: Shortness Of Breath) 0RF fluticasone propionate [Flonase Allergy Relief] 50 mcg/actuation spray,suspension 1 spray INTRANASAL BID PRN (Reason: Allergy Symptoms) 0RF zonisamide [Zonegran] 100 mg capsule 400 mg PO BEDTIME 0RF (DME) Custom Molded Orthotics See Rx Instructions .Route .MEDSUPPLY Qty: 1 0RF Rx Instructions: As directed clopidogrel [Plavix] 75 mg tablet 75 mg PO DAILY 0RF leflunomide 20 mg tablet 20 mg PO DAILY 0RF solifenacin [Vesicare] 10 mg tablet 10 mg PO DAILY Qty: 30 12RF pantoprazole [Protonix] 40 mg tablet,delayed release (DR/EC) 40 mg PO BID Qty: 28 0RF spironolactone 50 mg Tablet 50 mg PO DAILY 0RF ondansetron 4 mg tablet,disintegrating 4 mg PO Q8H PRN (Reason: nausea and vomiting) Qty: 15 0RF oxybutynin chloride 15 mg Tablet Extended Release 24hr 15 mg PO DAILY 0RF prednisone 5 mg Tablet 5 mg PO DAILY 0RF Discharge Orders: Discharge ED (Routine); Ordered 10/22/21 Ordered By: Reese Hernandez Referrals: Cristina Martin DO [Primary Care Provider] - Discharge Diet: Regular Discharge Activity: Increase activity as tolerated Patient Instructions: Kidney Stones (ED), How to Strain Your Urine (ED), Opioid Safety Activity Restrictions/Additional Instructions: Follow-up with medical provider as directed. Case management should be contacting you in the next several days to set up an appointment with Dr. Cuello the urologist. Strain urine to catch stone and drink lots of fluid to stay hydrated and help pass stone. Take medications as prescribed. You can take Tylenol per bottle instruction for any pain or fevers. Return to the ER or your medical provider if condition worsens. Please read and understand discharge instructions. If any questions, please ask. Stand Alone Forms: Work/School Release Coding Level of Care Code ED Drycleaner for Rushg Fwd Exam Comprehensive
--- NOTE | 2021-10-22 10:07 | CT_ITS ---
WS: [id number] CT ABDOMEN PELVIS TECHNIQUE: Noncontrast CT of the abdomen and pelvis with coronal and sagittal reformatted images. CLINICAL INFORMATION: RLQ abdominal pain COMPARISON: July 05, 2021 DLP: 1239.[address] scans at [facility] use at least one of these dose optimization techniques: automated e xposure control; mA and/or kV adjustment per patient size (includes targeted exams where dose is matc hed to clinical indication); or iterative reconstruction. FINDINGS: Obstructing 2 mm calculus in the distal 1/3rd RIGHT ureter at the level of the pelvic brim. Mild RIGH T ureterectasis with mild hydronephrosis and pelvocaliectasis. Inflammatory stranding and edema abou t the RIGHT kidney. Lung bases are well aerated. Normal GE junction. A few splenic granulomas. Noncontrast pancreas is no rmal. Adrenal glands are normal. No hydronephrosis in the LEFT kidney. Prior cholecystectomy. Normal noncontrast liver. Normal caliber abdominal aorta. Normal sigmoid colon. No evidence of high-grade small or large bowel destruction. A few sigmoid diver ticuli. CT/CT abdomen pelvis wo con [id number] IMPRESSION: 2 mm calculus in the distal one third RIGHT ureter with evidence of obstruction described above Notified MAI Becerra at 10/22/2021 11:10 AM.
[2021-10-22] MEDS: ondansetron 2 mg/ML SDV 2 mL 4 MG IVP (10:19)
[2021-10-22] MEDS: morphine 4 mg/mL SDV 1 mL IVP ×2 (10:21→11:41)
[2021-10-22 10:32] LABS: Basophils % 0.3 %; Eosinophils # 0.1 10^3/uL (0.0-0.8); Eosinophils % 0.5 %; Hematocrit 45.2 % (37.0-47.0); Hemoglobin 14.2 g/dL (11.5-15.3); Lymphocytes % 10.2 %; Mean Corpuscular HGB Conc 31.4 g/dL (30.0-36.0); Mean Corpuscular Hemoglobin 29.3 pg (28.0-34.0); Mean Corpuscular Volume 93.2 fl (81-99); Mean Platelet Volume 9.6 fL (7.4-10.4); Monocytes # 0.5 10^3/uL (0.2-0.9); Monocytes % 5.5 %; Neutrophils # 7.77 10^3/uL (1.8-7.7); Neutrophils % 83.3 %; Nucleated Red Blood Cells % 0 %; Platelet Count 356 10^3/cmm (130-400); Red Blood Count 4.85 10^6/uL (4.1-5.3); Red Cell Distribution Width 13.4 % (12.1-15.1); White Blood Count 9.3 10^3/uL (4.0-10.0)
[2021-10-22 10:57] LABS: Alanine Aminotransferase 25 U/L (0-33); Albumin Level 4.1 g/dL (3.5-5.2); Alkaline Phosphatase 116 IU/L (35-105); Blood Urea Nitrogen 9 mg/dL (6-20); Calcium 9.3 mg/dL (8.5-10.5); Carbon Dioxide 22 mmol/L (22-29); Chloride 104 mmol/L (98-107); Globulin 2.8 g/dL (1.3-4.6); Glomerular Filtration Rate 74.5 mL/min (90-130); Glucose 110 mg/dL (65-115); Lipase 37 U/L (13-60); Osmolality Calculated 287 mOsm/kg (285-295); Sodium 139 mmol/L (136-145); Total Bilirubin 0.3 mg/dL (0.15-1.2); Total Protein 6.9 g/dL (6.6-8.7)
[2021-10-22 10:59] LABS: Anion Gap 16.8 (5-19); Aspartate Amino Transferase 22 U/L (0-32); Potassium 3.8 mmol/L (3.5-5.1)
[2021-10-22 11:15] LABS: Glucose Urine UA Norm (Normal); Ketones Urine Negative (Negative); Protein Urine Neg (Negative); Specific Gravity, Urine 1.015 (1.005-1.030); Urine Appearance Hazy (CLEAR); Urine Color Yellow (Yellow); pH Urine 6.5 (5-7)
[2021-10-22 11:16] LABS: Add Urine Microscopic? YES; Bilirubin Urine 1+ (Negative); Blood Urine 3+ (Negative); Leukocyte Esterase Urine Negative (Negative); Nitrate Urine Negative (Negative); RBC Urine TOO NUMEROUS TO CNT /hpf (0-2); Urobilinogen Urine Norm (Negative)
[2021-10-22 11:17] LABS: Add Urine Culture? No; Fine Granular Casts Urine 0-4 /lpf; Squamous Epithelial Cell Urine 0-4 /hpf (0-5); WBC Urine 0-4 /hpf (0-5)
[2021-10-22] MEDS: sodium chloride 0.9% 500 ML 999 ML IV (11:25)
--- NOTE | 2021-10-23 12:34 | DCPLANNER ---
Addendum entered by Nannette Titus 10/28/21 13:40: coffee shop manager was sent the following message from urology regarding follow up appointment; Patient dropped off stone 10/22/21. Patient was informed to keep her follow up appointment and stone analysis was sent off. Original Note: coffee shop manager had message to schedule a follow up appointment for patient with urology. coffee shop manager sent patients information to the front office of urology. Patients information will be printed and reviewed. Clinic will call patient with appointment information.
== END 2021-10-22 13:45 | disposition home or self-care (01) ==
PROVIDERS: Emergency Provider Physician Assistant; PCP Family Medicine
DX: N20.2 Calculus of kidney with calculus of ureter (principal); Z79.02 Long term (current) use of antithrombotics/antiplatelets; N39.41 Urge incontinence
CPT/HCPCS: 51798; 74176; 80053; 81001; 82365; 83690; 85025; 88300; 99213; J2270; J2405; J7040

== ENCOUNTER → 2021-10-29 09:51 | Outpatient (BNVA) | payer MEDICAID, SELFPAY | PROVIDERS: PCP Family Medicine; Visit Provider Anesthesiology Pain Medicine | DX: M54.50 Low back pain, unspecified (principal); M79.604 Pain in right leg; M79.605 Pain in left leg | CPT/HCPCS: 99205 ==

== ENCOUNTER → 2021-11-25 10:23 | Outpatient (BNVA) | payer MEDICAID, SELFPAY | PROVIDERS: PCP Family Medicine; Visit Provider Anesthesiology Pain Medicine | DX: M19.012 Primary osteoarthritis, left shoulder (principal); M79.604 Pain in right leg; M79.605 Pain in left leg; M51.36 Other intervertebral disc degeneration, lumbar region; M47.816 Spondylosis without myelopathy or radiculopathy, lumbar region | CPT/HCPCS: 99214 ==

== ENCOUNTER → 2021-12-21 12:52 | Outpatient (BNVA) | payer MEDICAID, SELFPAY | PROVIDERS: PCP Family Medicine; Visit Provider Podiatrist Foot & Ankle Surgery | DX: M72.2 Plantar fascial fibromatosis (principal) | CPT/HCPCS: 20550 ==

== ENCOUNTER 2022-01-15 13:56 | Emergency (ER) | payer MEDICAID, SELFPAY ==
[2022-01-15 14:07] VITALS: BP 136/87; PULSE 85; RESP 18; TEMP 36.7; O2SAT 97; BMI 29.2
--- NOTE | 2022-01-15 14:39 | ED_ITS ---
HPI - Animal Bite General: Chief Complaint: Animal Bite Stated Complaint: spiderbite Time Seen by Provider: 01/15/22 14:12 Source: patient Mode of arrival: ambulatory Limitations: no limitations History of Present Illness: 56-year-old female presents to the ER today for a spider bite to the neck. Patient reports this occurred this morning. Patient reports she felt something on her face so she slept that it. She then went on down the hallway and reports she felt a sting on her neck. When she was able to get to a lighted space she saw the spider on her pajamas just near the area of the sting. Patient brought the spider in with her and reports she has done research and it is a brown recluse. Patient reports the neck where this spider bit her is red, tingly, and itchy. Patient went to her PCP who recommended she just monitor it. Patient is very concerned. She denies ever having had a brown recluse bite before. Patient denies any difficulty breathing. Review of Systems General: Reports: 10 or more systems reviewed and unremarkable except in HPI and below PFSH ED PFSH: Medical History Chronic constipation Hydronephrosis of right kidney Psychiatric care Sleep apnea with use of continuous positive airway pressure (CPAP) Urgency incontinence Urolithiasis Surgical History H/O esophagogastroduodenoscopy (06/24/21) gastric erosions H/O tubal ligation History of appendectomy Hx of cholecystectomy Status post colonoscopy (08/12/21) Status post laser lithotripsy of ureteral calculus Family History Brother Diabetes Father , unknown No problems noted. Other Cancer Social History Smoking and tobacco status: never smoked Second hand smoke exposure: Yes Smoking risk assessment/counseling performed?: No Alcohol intake: never Desire information about alcohol rehabilitation?: No Counseling given: No Desire information about substance/drug rehabilitation?: No Counseling given: No Adopted: No Caregiver/support person: No Lives independently: No Marital status: Current occupational status: employed History of recent travel: Yes Details: [place] Out of state: Yes Current gender identity: Female Physical Exam Const: COMMON NORMALS: no acute distress, average body habitus, patient oriented x3, no limitations, healthy appearing, alert and well nourished HENMT: COMMON NORMALS: normocephalic, atraumatic, external ears normal, Normal external nose present and moist oral mucous membranes HEAD & SCALP: normocephalic and atraumatic NOSE: Normal external nose present EXTERNAL EAR: Yes external ears normal Neck/C-Spine: OTHER: there is an area of redness that is slightly raised. Lymph: LYMPHATIC: no lymphadenopathy noted Resp: COMMON NORMALS: normal respiratory effort, No retractions and clear to auscultation bilaterally AUSCULTATION: clear to auscultation bilaterally Cardio: COMMON NORMALS: regular rate, regular rhythm and No murmurs present (Cardio) RATE: regular rate RHYTHM: regular rhythm Extremity: COMMON NORMALS: normal to inspection and full ROM Neuro: COMMON NORMALS: patient oriented x3 SENSORIUM/ORIENTATION: Yes alert Psych: COMMON NORMALS: mental status grossly normal, Normal thought process present and cooperative THOUGHT PROCESS: Normal thought process present Skin: NARRATIVE SKIN EXAM: pt has area on anterior neck that is slightly raised and erythematous. no obvious bite nataly. Area of redness does extend onto the chest Course ED course: Patient presents to the ER today after spider bite this morning. Patient brought the spider along with her and it does appear to be a brown recluse. Patient has an area of redness on the chest. There does not appear to be any difficulty breathing or throat swelling. We will treat patient with oral medications. Patient is requesting a steroid shot today. We will do 40 of Kenalog in the ER. Vital Signs: Vital signs: Vital Signs Temperature 98.1 F 01/15/22 14:07 Pulse Rate 85 01/15/22 14:07 Respiratory Rate 18 01/15/22 14:07 Blood Pressure 136/87 01/15/22 14:07 Pulse Oximetry 97 01/15/22 14:07 Oxygen Delivery Me thod 01/15/22 14:07 MDM - Animal Bite Medical Decision Making Discussed with patient that you are basically treating a secondary infection when treating a spider bite. There is nothing to do for the bite itself. Patient is requesting a steroid shot. We will do 40 of Kenalog today. That may help with a bit of the skin reaction. We will also do cephalexin to prevent a secondary infection. I recommended patient take Benadryl 25 to 50 mg 4 times daily and also Zyrtec 10 mg once daily. Patient to follow-up with PCP in 1 week. It is okay to apply topical hydrocortisone cream or Benadryl cream for itching. Return to the ER with new or worsening symptoms. Patient verbalized understanding and was in agreement with the treatment plan. Critical Care Time Critical Care Time: Critical Care Time: No Discharge Plan Discharge Patient Disposition: Home Clinical Impression: Spider bite Qualifiers: Encounter type: initial encounter Injury intent: accidental or unintentional Qualified Code(s): T63.301A - Toxic effect of unspecified spider venom, accidental (unintentional), initial encounter Condition: Stable Prescriptions: New cephalexin 500 mg capsule 500 mg PO TID 7 Days Qty: 21 0RF No Action albuterol sulfate 90 mcg/actuation aerosol powdr breath activated 2 inh INHALATION Q4H PRN (Reason: Shortness Of Breath) fluticasone propionate [Flonase Allergy Relief] 50 mcg/actuation spray,suspension 1 spray INTRANASAL BID PRN (Reason: Allergy Symptoms) zonisamide [Zonegran] 100 mg capsule 400 mg PO BEDTIME clopidogrel [Plavix] 75 mg tablet 75 mg PO DAILY fluoxetine 40 mg capsule 80 mg PO DAILY Qty: 60 2RF trazodone 100 mg tablet 200 mg PO BEDTIME Qty: 60 2RF gabapentin 300 mg capsule 300 mg PO TID Qty: 90 0RF leflunomide 20 mg tablet 20 mg PO DAILY solifenacin [Vesicare] 10 mg tablet 10 mg PO DAILY Qty: 30 12RF pantoprazole [Protonix] 40 mg tablet,delayed release (DR/EC) 40 mg PO BID Qty: 28 0RF spironolactone 50 mg Tablet 50 mg PO DAILY prednisone 5 mg Tablet 5 mg PO DAILY ondansetron 4 mg tablet,disintegrating 4 mg PO Q8H PRN (Reason: nausea and vomiting) Qty: 12 0RF Discharge Orders: Discharge ED (Routine); Ordered 01/15/22 Ordered By: Fatoumata Estrada Referrals: Cristina Martin DO [Primary Care Provider] - Discharge Diet: Usual diet Discharge Activity: Resume usual activity Patient Instructions: Opioid Safety, Pain Management Activity Restrictions/Additional Instructions: Take cephalexin as prescribed. Take Benadryl and Zyrtec as discussed. Apply topical hydrocortisone cream or Benadryl cream for symptoms. F/U with PCP in 1 week. Return to the ER with any new or worsening symptoms. Coding Level of Care Code ED Biomedical Repair Technician for Kwasi Arzola
[2022-01-15] MEDS: triamcinolone 40 mg/mL SDV IM (15:00)
[2022-01-15 15:17] VITALS: BP 137/90; PULSE 77; RESP 15; TEMP 36.7; O2SAT 95
== END 2022-01-15 15:12 | disposition home or self-care (01) ==
PROVIDERS: Emergency Provider Physician Assistant; PCP Family Medicine
DX: T63.301A Toxic effect of unspecified spider venom, accidental (unintentional), initial encounter (principal); Z79.82 Long term (current) use of aspirin; Z77.22 Contact with and (suspected) exposure to environmental tobacco smoke (acute) (chronic)
CPT/HCPCS: 96372; 99284; J3301

== ENCOUNTER 2022-01-17 12:36 | Emergency (ER) | payer MEDICAID, SELFPAY ==
[2022-01-17 12:40] VITALS: BP 143/78; PULSE 100; RESP 18; TEMP 36.7; O2SAT 95; BMI 29.2
--- NOTE | 2022-01-17 13:11 | W.ED.WOUNDLC ---
HPI - Wound/Laceration General: Chief Complaint: Wound/Laceration Stated Complaint: Animal Bite/Allergic reaction Time Seen by Provider: 01/17/22 13:06 History of Present Illness: 56-year-old female comes in today with a spider bite to the anterior neck right at the sternoclavicular notch on the right side. Patient was seen on Tuesday and started on cephalexin and given a dose of steroids. Patient was concerned due to the pain. Patient appears nontoxic. Patient appears no acute distress. Patient had a picture of a spider that bit her which was a brown recluse. Pictures that patient had taken of it yesterday showed a very erythematous area to the anterior neck that does not seem as red or swollen today. Associated symptoms: Denies fever(s), nausea or vomiting Review of Systems Const: Denies: fever(s) Resp: Denies: dyspnea GI: Denies: nausea or vomiting Skin/Breast: Reports: erythema PFSH ED PFSH: Medical History Chronic constipation Hydronephrosis of right kidney Psychiatric care Sleep apnea with use of continuous positive airway pressure (CPAP) Urgency incontinence Urolithiasis Surgical History H/O esophagogastroduodenoscopy (06/24/21) gastric erosions H/O tubal ligation History of appendectomy Hx of cholecystectomy Status post colonoscopy (08/12/21) Status post laser lithotripsy of ureteral calculus Family History Brother Diabetes Father , unknown No problems noted. Other Cancer Social History Smoking and tobacco status: never smoked Second hand smoke exposure: Yes Smoking risk assessment/counseling performed?: No Alcohol intake: never Desire information about alcohol rehabilitation?: No Counseling given: No Desire information about substance/drug rehabilitation?: No Counseling given: No Adopted: No Caregiver/support person: No Lives independently: No Marital status: Current occupational status: employed History of recent travel: Yes Details: [place] Out of state: Yes Current gender identity: Female Physical Exam Const: COMMON NORMALS: alert HENMT: COMMON NORMALS: normocephalic HEAD & SCALP: normocephalic Neck/C-Spine: COMMON NORMALS: full ROM OTHER: Area of redness to the anterior lower neck. No fluctuance is noted in the tissue. Mild induration. Lymph: LYMPHATIC: lymphadenopathy Resp: COMMON NORMALS: normal respiratory effort Cardio: COMMON NORMALS: regular rate and regular rhythm RATE: regular rate RHYTHM: regular rhythm GI: COMMON NORMALS: non-tender Extremity: COMMON NORMALS: normal to inspection Neuro: SENSORIUM/ORIENTATION: Yes alert Skin: LESIONS: lesion noted (Anterior neck) Course Vital Signs: Vital signs: Vital Signs Temperature 98.0 F 01/17/22 12:40 Pulse Rate 100 01/17/22 12:40 Respiratory Rate 18 01/17/22 12:40 Blood Pressure 143/78 01/17/22 12:40 Pulse Oximetry 95 01/17/22 12:40 Oxygen Delivery Me thod 01/17/22 12:40 MDM - Wound/Laceration Medical Decision Making 56-year-old female comes in today for complaints of redness and swelling to the anterior neck. Patient did not know if it needed to be lanced. Patient reports some tenderness and discomfort. Patient appears in no acute distress. Respirations are even lungs are clear to auscultation. Patient has a area of swelling approximately 3 cm circular with a dry punctate lesion approximately 2 mm. No signs of ecchymosis is noted. Patient has some mild lymphadenopathy. Differential diagnosis includes abscess, lymphadenitis, local reaction insect bite. Patient does have some mild lymphadenitis secondary to a local reaction to the insect bite. Reassured patient that there was no sign of abscess at this time. An ultrasound was performed to confirm. Patient was written for some hydrocodone due to the discomfort. Encourage fluids rest and follow-up with primary care in 3 days for recheck. Lab Data Radiology Impressions Head/Neck Ultrasound 01/17/22 13:16 IMPRESSION: 1. Prominent edema in the skin and subcutaneous fat suggesting possible cellulitis. 2. No obvious abscess or fluid collection. Discharge Plan Discharge Patient Disposition: Home Clinical Impression: Brown recluse spider bite Qualifiers: Encounter type: subsequent encounter Injury intent: accidental or unintentional Qualified Code(s): T63.331D - Toxic effect of venom of brown recluse spider, accidental (unintentional), subsequent encounter Insect bite of neck with local reaction Qualifiers: Encounter type: subsequent encounter Qualified Code(s): S10.96XD - Insect bite of unspecified part of neck, subsequent encounter Condition: Stable Prescriptions: New hydrocodone-acetaminophen 5-325 mg tablet 1 tab PO Q8H PRN (Reason: pain (scale score 7-10)) Qty: 7 0RF No Action albuterol sulfate 90 mcg/actuation aerosol powdr breath activated 2 inh INHALATION Q4H PRN (Reason: Shortness Of Breath) fluticasone propionate [Flonase Allergy Relief] 50 mcg/actuation spray,suspension 1 spray INTRANASAL BID PRN (Reason: Allergy Symptoms) zonisamide [Zonegran] 100 mg capsule 400 mg PO BEDTIME clopidogrel [Plavix] 75 mg tablet 75 mg PO DAILY fluoxetine 40 mg capsule 80 mg PO DAILY Qty: 60 2RF trazodone 100 mg tablet 200 mg PO BEDTIME Qty: 60 2RF gabapentin 300 mg capsule 300 mg PO TID Qty: 90 0RF leflunomide 20 mg tablet 20 mg PO DAILY solifenacin [Vesicare] 10 mg tablet 10 mg PO DAILY Qty: 30 12RF pantoprazole [Protonix] 40 mg tablet,delayed release (DR/EC) 40 mg PO BID Qty: 28 0RF spironolactone 50 mg Tablet 50 mg PO DAILY prednisone 5 mg Tablet 5 mg PO DAILY ondansetron 4 mg tablet,disintegrating 4 mg PO Q8H PRN (Reason: nausea and vomiting) Qty: 12 0RF cephalexin 500 mg capsule 500 mg PO TID 7 Days Qty: 21 0RF Discharge Orders: Discharge ED (Routine); Ordered 01/17/22 Ordered By: José Reyes Referrals: Cristina Martin DO [Primary Care Provider] - Activity Restrictions/Additional Instructions: Continue with antibiotics. Use acetaminophen and ibuprofen for pain. Use hydrocodone for severe pain. Follow-up with primary care in 3 days for recheck. Return to ER for new concerns. Coding Level of Care Code ED Sheet Metal Duct Installer Helper for Kwasi Fwbrigitte Exam Comprehensive
--- NOTE | 2022-01-17 13:16 | USR_ITS ---
PROCEDURE INFORMATION: Exam: US Soft Tissue Head and Neck, Soft Tissue Exam date and time: 01/17/2022 1:48 PM Age: 56 years old Clinical indication: Injury or trauma; Other: Spider bite; Puncture; Not specified; Injury date: 01/15/2022; Additional info: Spider bite, evaluate for abscess TECHNIQUE: Imaging protocol: Real-time ultrasound scan of the head and neck with image documentation. Exam focused on the soft tissue in the region of clinical concern. COMPARISON: CT angio headneck* [id number] 10/03/2018 12:58 PM FINDINGS: Lymph nodes: No lymphadenopathy. Soft tissues: Prominent edema in the skin and subcutaneous fat suggesting possible cellulitis. Other findings: No obvious abscess or fluid collection. US/US soft tissue head neck [id number] IMPRESSION: 1. Prominent edema in the skin and subcutaneous fat suggesting possible cellulitis. 2. No obvious abscess or fluid collection.
[2022-01-17] MEDS: HYDROcodone-acetaminophen 7.5-325 mg Tablet 1 TAB PO (13:27)
== END 2022-01-17 14:07 | disposition home or self-care (01) ==
PROVIDERS: Emergency Provider Nurse Practitioner Family; PCP Family Medicine
DX: T63.331A Toxic effect of venom of brown recluse spider, accidental (unintentional), initial encounter (principal); Z79.02 Long term (current) use of antithrombotics/antiplatelets; Z77.22 Contact with and (suspected) exposure to environmental tobacco smoke (acute) (chronic)
CPT/HCPCS: 76536; 99284

== ENCOUNTER 2022-01-20 12:50 | Outpatient (CLI) | payer MEDICAID, SELFPAY ==
--- NOTE | 2022-01-20 13:08 | XR_ITS ---
WS: [id number] KUB, AP view, 01/20/2022 Clinical Data: Urolithiasis Comparison: KUB, 10/21/2021 Findings: There is a small calcification overlying the inferior pole of the left kidney. The right kidney is ob scured by overlying fecal material as is the superior pole of the left kidney. No abnormal intraabdominal masses are seen. There is no dilatated small bowel or evidence of obstruct ion. There are phleboliths in the true pelvis. There is degenerative change of the lumbar spine with a lev oscoliosis. XR/XR KUB [id number] Impression: Possible inferior pole left renal calculus.
== END 2022-01-20 12:51 | disposition home or self-care (01) ==
LOC: RAD 12:53
PROVIDERS: PCP Family Medicine; Visit Provider Nurse Practitioner Family
DX: N20.9 Urinary calculus, unspecified (principal); N39.41 Urge incontinence; N39.44 Nocturnal enuresis
CPT/HCPCS: 74018; 81003; 99213

== ENCOUNTER 2022-01-21 09:20 | Outpatient (CLI) | payer MEDICAID, SELFPAY ==
--- NOTE | 2022-01-21 09:30 | MR_ITS ---
WS: [id number] MRI LEFT SHOULDER HISTORY: M19.019 - Primary osteoarthritis, unspecified shoulder COMPARISON: None available. TECHNIQUE: Multiplanar sequences of the shoulder joint are submitted. Mild AC joint hypertrophy. Small osteophytes from the distal clavicle encroaches upon the supraspinat us myotendinous insertion. The AC ligament is intact. Mild subacromial impingement. No fluid distenti on of the subacromial or subdeltoid bursa. No os acromion. Biceps tendon may be partially subluxed fr om the bicipital groove. Only a very small portion of the tendon is identified in the bicipital groov e. Very slightly high riding humeral head. Mild narrowing of the glenohumeral joint. No marrow edema or fractures. Mild thickening and increased T2 signal in the distal supraspinatus tendon. Most consisten t with tendinopathy. No tear or retraction of the tendon is identified. Mild narrowing of the coracoh umeral interval. Increased signal in the subscapularis tendon from tendinopathy. No retraction. There is mild atrophy of the subscapularis muscle. No muscle edema. No labral tear. MR/MR shoulder LT wo con* [id number] IMPRESSION: 1. Moderate tendinopathy in the distal supraspinatus tendon. No tear identifie d. 2. Tendinopathy in the distal subscapularis tendon. There is narrowing of the coracohumeral interval with encroachment upon the subscapularis tendon. 3. Mild atrophy of the subscapularis muscle. 4. Suspect partially subluxed biceps tendon. 5. Mild AC joint arthritis.
== END 2022-01-21 09:21 | disposition home or self-care (01) ==
LOC: RAD 09:20
PROVIDERS: PCP Family Medicine; Visit Provider Anesthesiology Pain Medicine
DX: M19.012 Primary osteoarthritis, left shoulder (principal); M62.512 Muscle wasting and atrophy, not elsewhere classified, left shoulder
CPT/HCPCS: 73221

== ENCOUNTER → 2022-02-02 12:55 | Outpatient (BNVA) | payer MEDICAID, SELFPAY | PROVIDERS: PCP Family Medicine; Visit Provider Podiatrist Foot & Ankle Surgery | DX: M72.2 Plantar fascial fibromatosis (principal) | CPT/HCPCS: 99213 ==

== ENCOUNTER → 2022-02-16 10:41 | Outpatient (BNVA) | payer MEDICAID, SELFPAY | PROVIDERS: PCP Family Medicine; Visit Provider Anesthesiology Pain Medicine | DX: M67.912 Unspecified disorder of synovium and tendon, left shoulder (principal); M51.36 Other intervertebral disc degeneration, lumbar region; M47.816 Spondylosis without myelopathy or radiculopathy, lumbar region; M79.604 Pain in right leg; M79.605 Pain in left leg | CPT/HCPCS: 99214 ==

== ENCOUNTER → 2022-03-05 07:56 | Outpatient (BNVA) | payer MEDICAID, SELFPAY | PROVIDERS: PCP Family Medicine; Referring Provider Anesthesiology Pain Medicine; Visit Provider Student in an Organized Health Care Education/Training Program | DX: M67.919 Unspecified disorder of synovium and tendon, unspecified shoulder (principal) | CPT/HCPCS: 73030; 99204 ==

== ENCOUNTER → 2022-03-31 09:13 | Outpatient (BNVA) | payer MEDICAID, SELFPAY | PROVIDERS: PCP Family Medicine; Visit Provider Podiatrist Foot & Ankle Surgery | DX: M72.2 Plantar fascial fibromatosis (principal) | CPT/HCPCS: 20550 ==

== ENCOUNTER 2022-04-22 10:00 | Outpatient (CLI) | payer MEDICAID, SELFPAY ==
--- NOTE | 2022-04-22 10:30 | XR_ITS ---
WS: [id number] XR cervical spine 4-5V [id number] REASON FOR EXAM: NECK BACK PAIN FINDINGS: Normal curvature on the cervical spine. Normal odontoid with no significant cervical vertebral body abnormality. Large anterior osteophytes a t C4. Moderate narrowing of the C4-C5, C5-C6, and C7-T1 disc spaces. Mild osteophytosis of the uncinate pro cesses of C5 and C6. No significant listhesis. XR/XR cervical spine 4-5V [id number] IMPRESSION: Degenerative spondylosis. Minimal interval change compared to the previous exam ination of 06/05/2013.
--- NOTE | 2022-04-22 10:30 | XR_ITS ---
WS: [id number] XR thoracic spine 3V* [id number] REASON FOR EXAM: NECK BACK PAIN FINDINGS: No significant scoliosis. No significant compression deformity or focal lesion of the thoracic verteb veronica. Moderate disc space narrowing with moderate anterior osteophyte formation in the mid and lower thorac ic spine. XR/XR thoracic spine 3V* [id number] IMPRESSION: Degenerative spondylosis.
== END 2022-04-22 10:01 | disposition home or self-care (01) ==
PROVIDERS: PCP Family Medicine; Visit Provider Family Medicine
DX: M47.892 Other spondylosis, cervical region (principal); M47.894 Other spondylosis, thoracic region
CPT/HCPCS: 72050; 72072

== ENCOUNTER → 2022-04-27 09:35 | Outpatient (BNVA) | payer MEDICAID, SELFPAY | PROVIDERS: PCP Family Medicine; Visit Provider Anesthesiology Pain Medicine | DX: M51.36 Other intervertebral disc degeneration, lumbar region (principal); M47.816 Spondylosis without myelopathy or radiculopathy, lumbar region | CPT/HCPCS: 99214 ==

== ENCOUNTER → 2022-04-29 13:36 | Outpatient (BNVA) | payer MEDICAID, SELFPAY | PROVIDERS: PCP Family Medicine; Visit Provider Student in an Organized Health Care Education/Training Program | DX: M75.42 Impingement syndrome of left shoulder (principal); M19.012 Primary osteoarthritis, left shoulder | CPT/HCPCS: 99213 ==

== ENCOUNTER → 2022-05-18 12:52 | Outpatient (BNVA) | payer MEDICAID, SELFPAY | PROVIDERS: PCP Family Medicine; Visit Provider Anesthesiology Pain Medicine | DX: M54.16 Radiculopathy, lumbar region (principal) | CPT/HCPCS: 64493; 64494; 64495; J3490 ==

== ENCOUNTER → 2022-06-01 13:00 | Outpatient (BNVA) | payer MEDICAID, SELFPAY | PROVIDERS: PCP Family Medicine; Visit Provider Anesthesiology Pain Medicine | DX: M47.816 Spondylosis without myelopathy or radiculopathy, lumbar region (principal) | CPT/HCPCS: 64493; 64494; 64495 ==

== ENCOUNTER → 2022-06-02 09:13 | Outpatient (BNVA) | payer MEDICAID, SELFPAY | PROVIDERS: PCP Family Medicine; Visit Provider Podiatrist Foot & Ankle Surgery | DX: M72.2 Plantar fascial fibromatosis (principal) | CPT/HCPCS: 99213 ==

== ENCOUNTER → 2022-06-14 14:55 | Outpatient (BNVA) | payer MEDICAID, SELFPAY | PROVIDERS: PCP Family Medicine; Visit Provider Student in an Organized Health Care Education/Training Program | DX: M19.012 Primary osteoarthritis, left shoulder (principal); M75.42 Impingement syndrome of left shoulder; Z71.89 Other specified counseling | CPT/HCPCS: 20610; 99213 ==

== ENCOUNTER → 2022-07-20 09:33 | Outpatient (BNVA) | payer MEDICAID, SELFPAY | PROVIDERS: PCP Family Medicine; Visit Provider Anesthesiology Pain Medicine | DX: M51.36 Other intervertebral disc degeneration, lumbar region (principal); M47.816 Spondylosis without myelopathy or radiculopathy, lumbar region | CPT/HCPCS: 99214 ==

== ENCOUNTER 2022-07-20 14:17 | Outpatient (CLI) | payer MEDICAID, SELFPAY ==
--- NOTE | 2022-07-20 15:23 | XR_ITS ---
WS: [id number] KUB, AP view, 07/20/2022 Clinical Data: STONE Comparison: KUB, 01/20/2022 Findings: No abnormal intraabdominal masses are seen. There is no dilatated small bowel or evidence of obstruct ion. There is a small calcification overlying the inferior pole of the left kidney unchanged. There are cl ips in the right upper quadrant from a cholecystectomy. XR/XR KUB [id number] Impression: No change in possible inferior pole left renal calculus.
== END 2022-07-20 14:18 | disposition home or self-care (01) ==
LOC: RAD 14:18
PROVIDERS: PCP Family Medicine; Visit Provider Urology
DX: N20.9 Urinary calculus, unspecified (principal)
CPT/HCPCS: 51798; 74018; 81003; 99214

== ENCOUNTER → 2022-08-03 13:41 | Outpatient (BNVA) | payer MEDICAID, SELFPAY | PROVIDERS: PCP Family Medicine; Visit Provider Anesthesiology Pain Medicine | DX: M47.816 Spondylosis without myelopathy or radiculopathy, lumbar region (principal) | CPT/HCPCS: 64635; 64636; J1030 ==

== ENCOUNTER 2022-08-05 13:55 | Outpatient (CLI) | payer MEDICAID, SELFPAY ==
--- NOTE | 2022-08-05 14:03 | MM_ITS ---
WS: [id number] BILATERAL 3D TOMOSYNTHESIS DIGITAL SCREENING MAMMOGRAPHY WITH CAD CLINICAL INFORMATION: SCREENING HISTORY: Screening mammogram. No current complaints. COMPARISON: 2020 TECHNIQUE: Bilateral CC and MLO views. FINDINGS: Scattered fibroglandular densities bilaterally. No suspicious focal mass, asymmetry, calcifications, or architectural distortion. No evidence of malignancy. A few incidental punctate calcifications. MM/[place] [id number] IMPRESSION: BI-RADS: 2-Benign FOLLOW UP: 1 Year Follow-up Recommend return to annual screening mammography.
== END 2022-08-05 13:56 | disposition home or self-care (01) ==
PROVIDERS: PCP Family Medicine; Visit Provider Family Medicine
DX: Z12.31 Encounter for screening mammogram for malignant neoplasm of breast (principal)
CPT/HCPCS: 77063; 77067

== ENCOUNTER → 2022-08-12 14:37 | Outpatient (BNVA) | payer MEDICAID, SELFPAY | PROVIDERS: PCP Family Medicine; Visit Provider Student in an Organized Health Care Education/Training Program | DX: M75.22 Bicipital tendinitis, left shoulder (principal); M75.42 Impingement syndrome of left shoulder; M19.012 Primary osteoarthritis, left shoulder | CPT/HCPCS: 99214 ==

== ENCOUNTER → 2022-08-26 14:25 | Outpatient (BNVA) | payer MEDICAID, SELFPAY | PROVIDERS: PCP Family Medicine; Visit Provider Anesthesiology Pain Medicine | DX: M47.816 Spondylosis without myelopathy or radiculopathy, lumbar region (principal) | CPT/HCPCS: 64635; 64636; J1030 ==

== ENCOUNTER 2022-08-31 13:05 | Emergency (ER) | payer MEDICAID, SELFPAY ==
[2022-08-31 13:10] VITALS: BP 126/82; PULSE 65; RESP 14; TEMP 36.7; O2SAT 97; BMI 30.1
--- NOTE | 2022-08-31 14:03 | W.ED.DIZZY ---
HPI - Dizziness General: Chief Complaint: Dizziness Stated Complaint: headpain for week, Dizzy Time Seen by Provider: 08/31/22 14:03 History of Present Illness: HPI Narrative: Patient presents to the ER with complaints of headache that will not go away. This headache started 1 to 2 weeks ago. Patient says she gets these headaches all the time and used to see a neurologist. Patient says this is from nerve damage. Patient is sensitive to light. Patient is also been getting dizzy and she thinks this is due to her low potassium. MD elicited complaint: dizziness (Headache) Pertinent past history: other (Chronic headaches, low potassium) Onset (ago): week(s) (About 2 weeks ago) Timing: gradual onset Severity: moderate History of similar symptoms: Yes Exacerbating factors: nothing Relieving factors: nothing Associated symptoms: Reports no associated symptoms Associated neuro symptoms: Reports no associated symptoms Review of Systems General: Reports: 10 or more systems reviewed and unremarkable except in HPI and below PFSH ED PFSH: Medical History Acromioclavicular joint arthritis Chronic constipation Hydronephrosis of right kidney Psychiatric care Sleep apnea with use of continuous positive airway pressure (CPAP) Subacromial impingement of left shoulder Urgency incontinence Urolithiasis Surgical History H/O esophagogastroduodenoscopy (06/24/21) gastric erosions H/O tubal ligation History of appendectomy Hx of cholecystectomy Status post colonoscopy (08/12/21) Status post laser lithotripsy of ureteral calculus Family History Brother Diabetes Father , unknown No problems noted. Other Cancer Social History Smoking and tobacco status: never smoked Second hand smoke exposure: Yes Smoking risk assessment/counseling performed?: No Alcohol intake: never Desire information about alcohol rehabilitation?: No Counseling given: No Substance/Drug Use: never Desire information about substance/drug rehabilitation?: No Counseling given: No Adopted: No Caregiver/support person: No Lives independently: No Marital status: Current occupational status: employed Current gender identity: Female Physical Exam Const: COMMON NORMALS: no acute distress, average body habitus, patient oriented x3, no limitations, healthy appearing, alert and well nourished HENMT: COMMON NORMALS: normocephalic, atraumatic, hearing grossly normal bilaterally, external ears normal, Normal external nose present and moist oral mucous membranes HEAD & SCALP: normocephalic and atraumatic NOSE: Normal external nose present EXTERNAL EAR: Yes external ears normal Eye: COMMON NORMALS: Equal, round and reactive pupils present, EOMs intact bilaterally, conjunctivae normal and no scleral icterus CONJUNCTIVA: Yes conjunctivae normal PUPIL: Yes Equal, round and reactive pupils present Neck/C-Spine: COMMON NORMALS: full ROM, no lymphadenopathy, supple, no meningeal signs, no JVD and Thyroid normal THYROID: Thyroid normal Lymph: LYMPHATIC: no lymphadenopathy noted Chest: COMMONS NORMALS: normal inspection of the chest and normal palpation of entire chest wall Resp: COMMON NORMALS: normal respiratory effort, No retractions, No use of accessory muscles and clear to auscultation bilaterally AUSCULTATION: clear to auscultation bilaterally Cardio: COMMON NORMALS: no JVD, regular rate, regular rhythm, S1 normal heart sound present, S2 normal heart sound present, No gallops present (Cardio), No clicks present (Cardio), No murmurs present (Cardio) and No rub (Cardio) RATE: regular rate RHYTHM: regular rhythm HEART SOUNDS: S1 normal heart sound present and S2 normal heart sound present GI: COMMON NORMALS: Normal to inspection, nondistended, normoactive bowel sounds present, Soft to palpation, non-tender and no masses PALPATION: Yes Soft to palpation : COMMON NORMALS: Yes no CVA tenderness BLADDER/KIDNEY EXAM: Yes no CVA tenderness Back/Pelvis: COMMON NORMALS: no CVA tenderness Neuro: COMMON NORMALS: patient oriented x3, CN's II-XII intact bilaterally, moves all extremities and no focal motor deficits SENSORIUM/ORIENTATION: Yes alert MENINGEAL SIGNS: Yes no meningeal signs Course Vital Signs: Vital signs: Vital Signs Temperature 98.1 F 08/31/22 13:10 Pulse Rate 65 08/31/22 13:10 Respiratory Rate 18 08/31/22 15:22 Blood Pressure 126/82 08/31/22 13:10 Pulse Oximetry 98 08/31/22 15:22 Oxygen Delivery Me thod Room Air 08/31/22 15:22 MDM - Dizziness Medical Decision Making Patient presents to the ER with complaints of a headache times last 1 to 2 weeks. Patient does have a longstanding history of headaches. Patient has also been dizzy. Patient has a history of hypokalemia. Physical exam was performed lab work was obtained. Patient was given 1 L normal saline, 10 mg Reglan, 25 mg of Benadryl, 30 mg Toradol IV. This relieved the patient's pain and patient felt much better. Lab work was benign. Patient be discharged home with instructions for migraine headache and is to follow-up with her family practice physician within the next 1 week. Differential Diagnosis Unlikely adverse reaction to drug, benign paroxysmal positional vertigo, orthostatic hypotension, vertebral basilar insufficiency, cerebrovascular accident, acute vestibular neuronitis or transient cerebral ischemia Medical Records I reviewed the patient's medical records. Lab Data I reviewed the patient's lab results. 08/31/22 14:15 08/31/22 14:15 Laboratory Results WBC 7.1 10^3/uL (4.0-10.0) 08/31/22 14:15 RBC 4.41 10^6/uL (4.1-5.3) 08/31/22 14:15 Hgb 13.1 g/dL (11.5-15.3) 08/31/22 14:15 Hct 41.3 % (37.0-47.0) 08/31/22 14:15 MCV 93.7 fl (81-99) 08/31/22 14:15 MCH 29.7 pg (28.0-34.0) 08/31/22 14:15 MCHC 31.7 g/dL (30.0-36.0) 08/31/22 14:15 RDW 13.1 % (12.1-15.1) 08/31/22 14:15 Plt Count 297 10^3/cmm (130-400) 08/31/22 14:15 MPV 9.6 fL (7.4-10.4) 08/31/22 14:15 Neut % (Auto) 72.7 % 08/31/22 14:15 Lymph % (Auto) 18.1 % 08/31/22 14:15 [place] % (Auto) 7.3 % 08/31/22 14:15 Eos % (Auto) 1.0 % 08/31/22 14:15 Baso % (Auto) 0.6 % 08/31/22 14:15 Neut # (Auto) 5.17 10^3/uL (1.8-7.7) 08/31/22 14:15 Lymph # (Auto) 1.3 10^3/uL (0.8-4.8) 08/31/22 14:15 [place] # (Auto) 0.5 10^3/uL (0.2-0.9) 08/31/22 14:15 Eos # (Auto) 0.1 10^3/uL (0.0-0.8) 08/31/22 14:15 Baso # (Auto) 0.0 10^3/uL (0.0-0.1) 08/31/22 14:15 Nucleated RBC % (auto) 0 % 08/31/22 14:15 Nucleated RBCs # 0.0 /100WBC 08/31/22 14:15 Sodium 140 mmol/L (136-145) 08/31/22 14:15 Potassium 3.9 mmol/L (3.5-5.1) 08/31/22 14:15 Chloride 107 mmol/L (98-107) 08/31/22 14:15 Carbon Dioxide 24 mmol/L (22-29) 08/31/22 14:15 Anion Gap 12.9 (5-19) 08/31/22 14:15 BUN 14 mg/dL (6-20) 08/31/22 14:15 Creatinine 0.8 mg/dL (0.5-0.9) 08/31/22 14:15 GFR Calculation 74.5 mL/min (90-130) L 08/31/22 14:15 Glucose 86 mg/dL (65-115) 08/31/22 14:15 Calculated Osmolality 290 mOsm/kg (285-295) 08/31/22 14:15 Calcium 8.4 mg/dL (8.5-10.5) L 08/31/22 14:15 Magnesium 1.9 mg/dL (1.7-2.3) 08/31/22 14:15 Total Bilirubin 0.2 mg/dL (0.15-1.2) 08/31/22 14:15 AST 22 U/L (0-32) 08/31/22 14:15 ALT 26 U/L (0-33) 08/31/22 14:15 Alkaline Phosphatase 116 U/L (35-105) H 08/31/22 14:15 Total Protein 6.4 g/dL (6.6-8.7) L 08/31/22 14:15 Albumin 3.9 g/dL (3.5-5.2) 08/31/22 14:15 Globulin 2.5 g/dL (1.3-4.6) 08/31/22 14:15 Discharge Plan Discharge Patient Disposition: Home Clinical Impression: Migraine Qualifiers: Migraine type: unspecified Status migrainosus presence: without status migrainosus Intractability: not intractable Qualified Code(s): G43.909 - Migraine, unspecified, not intractable, without status migrainosus Condition: Stable Prescriptions: No Action fluticasone propionate [Flonase Allergy Relief] 50 mcg/actuation spray,suspension 1 spray INTRANASAL BID PRN (Reason: Allergy Symptoms) zonisamide [Zonegran] 100 mg capsule 400 mg PO BEDTIME clopidogrel [Plavix] 75 mg tablet 75 mg PO QAM solifenacin [Vesicare] 10 mg tablet 10 mg PO DAILY Qty: 30 12RF cyclobenzaprine 10 mg tablet 10 mg PO TID PRN (Reason: muscle spasm) Qty: 60 0RF leflunomide 20 mg tablet 20 mg PO QAM propranolol 20 mg tablet 20 mg PO BID PRN (Reason: anxiety) Qty: 60 2RF ondansetron 4 mg tablet,disintegrating 4 mg PO Q8H PRN (Reason: nausea and vomiting) Qty: 12 0RF atorvastatin 20 mg tablet 20 mg PO BEDTIME pantoprazole 20 mg tablet,delayed release (DR/EC) 20 mg PO BID albuterol sulfate [ProAir HFA] 90 mcg/actuation HFA aerosol inhaler 2 puff INHALATION BID PRN (Reason: Shortness Of Breath) Estk-Zkie-Mvycj (PABA) 3-133 mg-mcg Capsule 1 cap PO QAM fluoxetine 40 mg capsule 80 mg PO QAM oxybutynin chloride 10 mg tablet extended release 24hr 10 mg PO QAM trazodone 100 mg tablet 300 mg PO BEDTIME Discharge Orders: Discharge ED (Routine); Ordered 08/31/22 Ordered By: Aubrey Barrios Referrals: Cristina Martin DO [Primary Care Provider] - 1 week Patient Instructions: Migraine Headache (ED) Activity Restrictions/Additional Instructions: Please follow-up with your family practice physician in the next 1 week. As needed if your pain worsens or returns please feel free to come back to the ER for further treatment. Coding Level of Care Code ED Telephone Order Supervisor for Kwasi Arzola
[2022-08-31 14:22] VITALS: RESP 18; O2SAT 100
[2022-08-31] MEDS: sodium chloride 0.9% 1,000 ML 999 ML IV (14:26)
[2022-08-31 14:28] LABS: Basophils % 0.6 %; Eosinophils # 0.1 10^3/uL (0.0-0.8); Hematocrit 41.3 % (37.0-47.0); Hemoglobin 13.1 g/dL (11.5-15.3); Lymphocytes # 1.3 10^3/uL (0.8-4.8); Lymphocytes % 18.1 %; Mean Corpuscular HGB Conc 31.7 g/dL (30.0-36.0); Mean Corpuscular Hemoglobin 29.7 pg (28.0-34.0); Mean Corpuscular Volume 93.7 fl (81-99); Mean Platelet Volume 9.6 fL (7.4-10.4); Monocytes # 0.5 10^3/uL (0.2-0.9); Monocytes % 7.3 %; Neutrophils # 5.17 10^3/uL (1.8-7.7); Neutrophils % 72.7 %; Nucleated Red Blood Cells % 0 %; Platelet Count 297 10^3/cmm (130-400); Red Blood Count 4.41 10^6/uL (4.1-5.3); Red Cell Distribution Width 13.1 % (12.1-15.1); White Blood Count 7.1 10^3/uL (4.0-10.0)
[2022-08-31 14:45] LABS: Alanine Aminotransferase 26 U/L (0-33); Albumin Level 3.9 g/dL (3.5-5.2); Alkaline Phosphatase 116 U/L (35-105); Anion Gap 12.9 (5-19); Aspartate Amino Transferase 22 U/L (0-32); Blood Urea Nitrogen 14 mg/dL (6-20); Calcium 8.4 mg/dL (8.5-10.5); Carbon Dioxide 24 mmol/L (22-29); Chloride 107 mmol/L (98-107); Creatinine Clr Calc Pharmacy 78.1258; Globulin 2.5 g/dL (1.3-4.6); Glomerular Filtration Rate 74.5 mL/min (90-130); Glucose 86 mg/dL (65-115); Magnesium 1.9 mg/dL (1.7-2.3); Osmolality Calculated 290 mOsm/kg (285-295); Potassium 3.9 mmol/L (3.5-5.1); Sodium 140 mmol/L (136-145); Total Bilirubin 0.2 mg/dL (0.15-1.2); Total Protein 6.4 g/dL (6.6-8.7)
[2022-08-31 15:22] VITALS: RESP 18; O2SAT 98
[2022-08-31] MEDS: ketorolac 30 mg/mL INJ IVP (15:30)
[2022-08-31] MEDS: diphenhydrAMINE 50 mg/mL SDV 1mL 25 MG IVP (15:30)
[2022-08-31] MEDS: metoclopramide 5 mg/mL SDV 2 mL 10 MG IVP (15:30)
== END 2022-08-31 17:03 | disposition home or self-care (01) ==
PROVIDERS: Emergency Provider Emergency Medicine; PCP Family Medicine
DX: G43.909 Migraine, unspecified, not intractable, without status migrainosus (principal)
CPT/HCPCS: 80053; 83735; 85025; 96361; 96374; 96375; 99284; J1200; J1885; J2765; J7030

== ENCOUNTER → 2022-09-01 08:16 | Outpatient (BNVA) | payer MEDICAID, SELFPAY | PROVIDERS: PCP Family Medicine; Visit Provider Podiatrist Foot & Ankle Surgery | DX: M72.2 Plantar fascial fibromatosis (principal) | CPT/HCPCS: 99213 ==

== ENCOUNTER 2022-09-01 11:23 | Outpatient (CLI) | payer MEDICAID, SELFPAY | END 2022-09-01 11:24 | disposition home or self-care (01) | LOC: SPT 11:23 | PROVIDERS: PCP Family Medicine; Visit Provider Podiatrist Foot & Ankle Surgery | DX: Z46.89 Encounter for fitting and adjustment of other specified devices (principal); M72.2 Plantar fascial fibromatosis | CPT/HCPCS: 97760; L4397 ==

== ENCOUNTER → 2022-09-07 15:32 | Outpatient (BNVA) | payer MEDICAID, SELFPAY | PROVIDERS: PCP Family Medicine; Visit Provider Urology | DX: N20.2 Calculus of kidney with calculus of ureter; N39.41 Urge incontinence; N39.44 Nocturnal enuresis | CPT/HCPCS: 81003; 99213 ==

== ENCOUNTER → 2022-09-14 09:33 | Outpatient (BNVA) | payer MEDICAID, SELFPAY | PROVIDERS: PCP Family Medicine; Visit Provider Anesthesiology Pain Medicine | DX: M51.36 Other intervertebral disc degeneration, lumbar region (principal); M47.816 Spondylosis without myelopathy or radiculopathy, lumbar region | CPT/HCPCS: 99213 ==

== ENCOUNTER 2022-09-21 09:21 | Day surgery (SDC) | payer MEDICAID, SELFPAY ==
[2022-09-20 10:41] VITALS: BMI 29.2
[2022-09-21] VITALS (10 sets, daily range): BP systolic 128–274; BP diastolic 75–107; PULSE 65–75; RESP 14–20; TEMP 36.1–36.3; O2SAT 93–97
[2022-09-21] MEDS: ketorolac 30 mg/mL INJ IVP (10:00)
[2022-09-21] MEDS: acetaminophen 1,000 MG/100 ML PIGGYBACK 400 MG IV (10:00)
[2022-09-21] MEDS: sodium chloride 0.9% 1,000 ML 30 ML IV (10:00)
--- NOTE | 2022-09-21 11:26 | W.PM.OPSFHP ---
Same Day Surgery H&P Indication for Procedure/HPI DATE OF PROCEDURE: September 21, 2022 CHIEF COMPLAINT/INDICATIONFOR SURGICAL PROCEDURE: Left shoulder pain with biceps tendinitis subacromial impingement syndrome and AC joint arthritis No change in HPI from previous office visit on 08/12/2022 PREOP DIAGNOSIS: Left shoulder biceps tendinitis subacromial impingement and AC joint arthri PLANNED PROCEDURE: Operation Date: 09/21/22 11:10 Proposed Procedures p Shoulder Arthroscopy(Left) - Booker Hernandez DO s Bicep Tenotomy(Left) - Booker Hernandez DO s Subacromial Decompression(Left) - Booker Hernandez DO s Left shoulder diagnostic and surgical arthroscopy with biceps tenotomy 91156, subacromial decompression 47304, and AC joint resection 47036, M75.22, M75.42, M19.019(Left) - Booker Henrandez DO Medications/Allergies* Home Medications Medication Instructions Recorded Confirmed Type fluticasone propionate 50 1 spray intranasal BID PRN Allergy 04/09/19 09/20/22 History mcg/actuation nasal Symptoms spray,suspension (Flonase Allergy Relief) clopidogrel 75 mg tablet (Plavix) 75 mg PO QAM 05/25/21 09/20/22 History zonisamide 100 mg capsule 400 mg PO BEDTIME 05/25/21 09/20/22 History (Zonegran) leflunomide 20 mg tablet (Arava) 20 mg PO QAM 10/21/21 09/20/22 History albuterol sulfate 90 mcg/actuation 2 puff inhalation BID PRN 08/31/22 09/21/22 History aerosol inhaler (ProAir HFA) Shortness Of Breath atorvastatin 20 mg tablet 20 mg PO BEDTIME 08/31/22 09/20/22 History fluoxetine 40 mg capsule 80 mg PO QAM 08/31/22 09/20/22 History pantoprazole 20 mg tablet,delayed 20 mg PO BID 08/31/22 09/20/22 History release trazodone 100 mg tablet 300 mg PO BEDTIME 08/31/22 09/20/22 History Allergies/Adverse Reactions Allergy/AdvReac Type Severity Reaction Status Date / Time hydroxychloroquine Allergy Mild Weakness Verified 09/20/22 10:38 oxycodone AdvReac Intermediate Itching Verified 09/20/22 10:38 Current Medications: Generic Name Dose Route Start Last Admin Trade Name Darq PRN Reason Stop Dose Admin Sodium Chloride 1,000 mls @ 30 mls/hr 09/21/22 09:45 09/21/22 10:00 Sodium Chloride 0.9% IV 09/22/22 09:44 30 mls/hr .Q24H SANCHO Administration Pertinent History/Comorbid Conditions* Medical History (Updated 09/08/22 @ 00:01 by GEORGIA Velez) Acromioclavicular joint arthritis Chronic constipation Hydronephrosis of right kidney Psychiatric care Sleep apnea with use of continuous positive airway pressure (CPAP) Subacromial impingement of left shoulder Urgency incontinence Urolithiasis Surgical History (Updated 08/12/21 @ 07:50 by Yrn Quintero MD) H/O esophagogastroduodenoscopy (06/24/21) gastric erosions H/O tubal ligation History of appendectomy Hx of cholecystectomy Status post colonoscopy (08/12/21) Status post laser lithotripsy of ureteral calculus Family History (Updated 07/13/19 @ 10:52 by PRIMITIVO [place]) Father, unknown Diabetes Brother Cancer Social History Smoking and tobacco status: never smoked Second hand smoke exposure: Yes Smoking risk assessment/counseling performed?: No Alcohol intake: never Desire information about alcohol rehabilitation?: No Counseling given: No Substance/Drug Use: never Desire information about substance/drug rehabilitation?: No Counseling given: No Adopted: No Caregiver/support person: No Lives independently: No Marital status: Current occupational status: employed Current gender identity: Female Pertinent Exam Findings alert, oriented x 3, operative site marked and procedure specific exam findings The left shoulder shows pain on range of motion, primarily abduction as well as forward flexion.? Patient is able to achieve active range of motion of 180 degrees.? There is pain on abduction against resistance, pain over the leading edge of the acromion. There is marked pain near the AC joint on the left compared to the right. Cross arm test reveals pain directly over the AC joint. There is full internal and external rotation with 5/5 strength noted with the elbows at the side. There is pain with Jobes test but good strength is noted. A mildly positive [place] impingement test is noted.? Mildly positive speeds test as well as positive [place]'s. Recommendations Surgery/Procedure today Other Plans: Patient's failed conservative treatment at this point time she like to pursue a left shoulder diagnostic and surgical arthroscopy with subacromial decompression and AC joint resection and biceps tenotomy. Patient understands risk benefits complication alternatives with surgery elects proceed with surgical intervention all questions answered. Coding Level of Care Code Acute Code for Chg Fwd Diagnoses
[2022-09-21] MEDS: ceFAZolin 2,000 MG in sodium chloride 0.9% (plus) 50 ML 100 MG IV (11:41)
--- NOTE | 2022-09-21 13:12 | P.OP_ITS ---
Operative Report Date of procedure: September 21, 2022 Pre-op diagnosis: Preop Diagnosis Left shoulder biceps tendinitis subacromial impingement and AC joint arthri Procedure: Post-op diagnosis: Left shoulder labral tear Left shoulder biceps tendon tear Left shoulder partial rotator cuff tear Left shoulder AC joint arthritis Left shoulder subacromial bursitis/impingement Procedure done: Left shoulder diagnostic and surgical arthroscopy with biceps tenotomy Left shoulder diagnostic and surgical arthroscopy with labral debridement Left shoulder diagnostic and surgical arthroscopy with glenoid chondroplasty Left shoulder diagnostic and surgical arthroscopy rotator cuff debridement Left shoulder diagnostic and surgical arthroscopy subacromial decompression (bursectomy and acromioplasty) Left shoulder diagnostic and surgical arthroscopy with distal clavicle excision (AC joint resection) Surgeon: Booker Hernandez DO Estimated blood loss: 10mL IV fluids: See anesthesia record Implants: None Complications: None Condition: stable Disposition: same day Brief History: Patient been seen and worked up in the outpatient setting for left shoulder pain.? Pt had an MRI which showed findings below.? Patient's failed conservative treatment therapy and injection.? We talked about treatment options far as nonoperative and operative intervention..? We talked about risk benefits complication alternatives surgical nonsurgical treatment options.? Understanding risk of surgery patient agrees to proceed with surgical intervention.? All questions have been answered at this time.? Patient elects proceed with surgery and consent obtained. MR/MR shoulder LT wo con* [id number] IMPRESSION: ? 1.? Moderate tendinopathy in the distal supraspinatus tendon. No tear identified. 2.? Tendinopathy in the distal subscapularis tendon. There is narrowing of the coracohumeral interval with encroachment upon the subscapularis tendon. 3.? Mild atrophy of the subscapularis muscle. 4.? Suspect partially subluxed biceps tendon. 5.? Mild AC joint arthritis. Procedure: Patient seen evaluated in the preoperative holding area.? Consent reviewed and signed with patient.? Once again reviewed patient's MRI results as well as? planned surgical intervention.? Correct extremity marked.? Patient seen evaluated by anesthesia department received regional anesthesia.? Once ready for surgery was taken back to the operative suite.? Patient then subsequently underwent anesthesia per the anesthesia department was transported onto the OR table.? Patient was then placed into a lateral decubitus position with a beanbag and was appropriately secured to the bed.? All bony prominences well-padded.? Patient then had the left upper extremity was then prepped and draped in standard orthopedic fashion.? Patient received appropriate preoperative antibiotics.? Final timeout performed. The left upper extremity was then held in hanging from traction utilizing sterile technique.? Next started with standard diagnostic and surgical arthroscopy with posterior portal position introduced arthroscope into the glenohumeral joint.? Visualized the glenohumeral joint I then introduced a spinal needle within the rotator cuff interval to confirm appropriate anterior portal placement.? Once this was confirmed I then made my small incision and then introduced my arthroscopic shaver into the glenohumeral joint.? After thorough debridement was clearly evident patient had a significant erythema as well as positive liftoff sign of the biceps anchor and biceps tendon tear as it was pulled within the joint.? Decision at this time was made to perform a biceps tenotomy.? Introduced a thermal wand and a biceps tenotomy was performed to completion with appropriate release.? Next I evaluated the subscapularis tendon which was intact. ?Next there was significant labral tearing at biceps anchor and circumferential.? ? I then subsequently utilized an arthroscopic shaver and thermal wand to perform a labral debridement.? This point time I then visualized the glenohumeral joint.? The glenohumeral joint was found to have grade 1 on the humeral head and grade 2 with a small area of grade 3 on the glenoid. I utilized an arthroscopic shaver to perform glenoid chondroplasty. ? Axillary recess was free of loose bodies from viewing the posterior portal.? Next a visualized the rotator cuff superiorly and there was found to be a small partial articular surface tear of the supraspinatus tendon.? I utilized a spinal needle to nataly this location.??Prior to leaving the joint I utilized arthroscopic shaver to perform a rotator cuff debridement. This completed my work within the glenohumeral joint all fluid was suctioned free of the joint.? ?Next I reintroduced the arthroscope posteriorly.? And went to the subacromial space.? I established my lateral working portal at the site of which my spinal needle was marking of the rotator cuff where a partial tear was noted. I then inspected the bursal side and there was no evidence of a tear or any weakness on the bursal side as a result this was left alone. Thermal wand was then introduced laterally and then I subsequently performed extensive bursectomy of the subacromial space.? Patient had a large anterior bone spur.? At this point time I proceeded with AC joint resection thermal wand was used and track to the anterior edge of the acromion and then tracked all the way to the AC joint.? Once identified the AC joint this was very arthritic in nature.? Thermal wand was placed anteriorly to establish appropriate plane for AC joint resection.? Once appropriate margins and anterior inferior and anterior capsule was released I then introduced arthroscopic shaver and a bur and performed AC joint resection of both the acromion to cope plane at the AC joint and a distal clavicle resection was then performed totaling 1 cm in size and was confirmed.? This completed my AC joint resection and I then introduced the arthroscopic shaver laterally while continuing to view posteriorly.? I then performed an acromioplasty to complete my subacromial decompression. Next the arthroscopic shaver was used to perform subacromial bursectomy and d ecompression. Once again the rotator cuff was found to be intact and moved as a unit and no evidence of tear was noted from the bursal side. I then introduced the arthroscopic shaver posteriorly to complete my subacromial decompression and acromioplasty appropriate Co-planing all the way up to the lateral edge of the acromion.? This completed the surgery.? All fluid was suctioned from the shoulder.? All instruments were removed.? The portal sites closed with portal nylon stitches.? Xeroform 4 x 4's ABD and tape was then applied to the left shoulder and was placed into a shoulder sling. P atient was then awakened from anesthesia and then taken back to PACU in stable condition.? Patient tolerated procedure without any issues. Disposition: Patient taken back in stable condition recovering well.? Dressings on in place clean dry and intact.? Will be ROM and WBAT to operative extremity.? Follow therapy protocol.? Patient to follow-up with me in the office in 2 weeks.? Patient will receive appropriate discharge instruction as well as pain medication postoperatively.? All questions answered.? We will contact the office for any questions or concerns.
--- NOTE | 2022-09-21 13:12 | P.OP_ITS ---
Brief Operative Note Date of procedure: 09/21/22 Pre-op diagnosis: Left shoulder pain, biceps tendinitis/tear, subacromial impi ngement, AC monae Post-op diagnosis: same (Glenohumeral joint chondromalacia, labral tearing, partial rotator cuff tear) Procedure Done: Left shoulder diagnostic and surgical arthroscopy with biceps tenotomy Left shoulder diagnostic and surgical arthroscopy with labral debridement Left shoulder diagnostic and surgical arthroscopy with glenoid chondroplasty Left shoulder diagnostic and surgical arthroscopy rotator cuff debridement Left shoulder diagnostic and surgical arthroscopy subacromial decompression (bursectomy and acromioplasty) Left shoulder diagnostic and surgical arthroscopy with distal clavicle excision (AC joint resection) Surgeon: Booker Hernandez Estimated blood loss (mL): 10 Complications: None Post-op Plan: Patient taken to PACU in stable condition recovering well. Will receive appropriate pain medication and discharge instructions postoperatively. Patient will be allowed weightbearing as tolerated to the left shoulder currently in a simple sling. Given appropriate dressing instructions. We will follow-up in the orthopedic office in 2 weeks. All questions answered. Condition: stable Disposition: same day Coding Level of Care Code Acute Code for Kwasi Arzola
--- NOTE | 2022-09-21 13:12 | PM.PACU ---
PACU note Narrative: Patient taken to PACU in stable condition dressings are clean dry and intact the left shoulder. Sling on in place. Regional anesthesia still on affect unable to assess motor or sensory. Distal pulses are palpable. Hand warm well perfused. Exam: awake Disposition: discharged
--- NOTE | 2022-09-21 13:14 | ANES.PREANE2 ---
Pre-Anesthetic Assessment Height/Weight: Height 1.63 m Weight 77.111 kg Temp Pulse Resp BP Pulse Ox O2 Del Method 97.0 F L 65 18 159/107 97 Room Air 09/21/22 09:42 09/21/22 09:42 09/21/22 09:42 09/21/22 09:42 09/21/22 09:42 09/21/22 09:42 Preop Diagnosis: Left shoulder biceps tendinitis subacromial impingement and AC joint arthri Operation Date: 09/21/22 11:10 Proposed Procedures p Shoulder Arthroscopy(Left) - Booker Barranquitas, DO s Bicep Tenotomy(Left) - Booker Barranquitas, DO s Subacromial Decompression(Left) - Booker Barranquitas, DO s Left shoulder diagnostic and surgical arthroscopy with biceps tenotomy 48041, subacromial decompression 03989, and AC joint resection 26897, M75.22, M75.42, M19.019(Left) - Booker Mary, DO Familial anesthetic complications: none Was Beta Freedom taken within 24 hours: N/A Was Clonidine taken within 24 hours: N/A Last intake: Intake Last Liquid Date 09/20/22 Last Liquid Time 19:00 Last Solid Date 09/20/22 Last Solid Time 19:00 Social No alcohol and No tobacco Exam alert, oriented x 3, clear to auscultation bilaterally and regular rate & rhythm Airway Submandibular: within normal limits Cervical ROM: within normal limits Mallampati: Class II Dentition: chipped Comments: Comments: missing Pulmonary Asthma GI Gastroesophageal Reflux Disease Metabolic Hyperlipidemia Musc/skel Lower Back Pain and Osteoarthritis/DJD Neuropsych Anxiety, Depression and Seizure Anesthetic Plan ASA status: 3 Anesthesia: General and Regional (specify below) (Left interscalene blk) Medications/Allergies Home Medications Medication Instructions Recorded Confirmed Last Taken Type fluticasone propionate 50 1 spray intranasal BID PRN Allergy 04/09/19 09/20/22 09/15/22 History mcg/actuation nasal Symptoms spray,suspension (Flonase Allergy Relief) clopidogrel 75 mg tablet (Plavix) 75 mg PO QAM 05/25/21 09/20/22 09/12/22 History zonisamide 100 mg capsule 400 mg PO BEDTIME 05/25/21 09/20/22 09/20/22 History (Zonegran) leflunomide 20 mg tablet (Arava) 20 mg PO QAM 10/21/21 09/20/22 09/20/22 History ondansetron 4 mg disintegrating 4 mg PO Q8H PRN nausea and 10/22/21 09/20/22 Unknown Rx tablet vomiting #12 tabs cyclobenzaprine 10 mg tablet 10 mg PO TID PRN muscle spasm #60 04/27/22 09/21/22 Unknown Rx tabs propranolol 20 mg tablet 20 mg PO BID PRN anxiety #60 tabs 07/20/22 09/21/22 Unknown Rx solifenacin 10 mg tablet (Vesicare) 10 mg PO DAILY #30 tabs 07/21/22 09/20/22 09/20/22 Rx albuterol sulfate 90 mcg/actuation 2 puff inhalation BID PRN 08/31/22 09/21/22 Unknown History aerosol inhaler (ProAir HFA) Shortness Of Breath atorvastatin 20 mg tablet 20 mg PO BEDTIME 08/31/22 09/20/22 09/20/22 History fluoxetine 40 mg capsule 80 mg PO QAM 08/31/22 09/20/22 09/20/22 History pantoprazole 20 mg tablet,delayed 20 mg PO BID 08/31/22 09/20/22 09/20/22 History release trazodone 100 mg tablet 300 mg PO BEDTIME 08/31/22 09/20/22 09/20/22 History Night Splint #1 ea 09/01/22 09/14/22 Unknown Rx oxybutynin chloride 15 mg 15 mg PO DAILY #30 tabs 09/07/22 09/20/22 09/20/22 Rx tablet,extended release 24 hr hydrocodone 5 mg-acetaminophen 325 1 tab PO Q6H PRN pain 7 days #28 09/21/22 Unknown Rx mg tablet tabs Allergies Allergy/AdvReac Type Severity Reaction Status Date / Time hydroxychloroquine Allergy Mild Weakness Verified 09/20/22 10:38 oxycodone AdvReac Intermediate Itching Verified 09/20/22 10:38 Current Medications Generic Name Dose Route Start Last Admin Trade Name Freq PRN Reason Stop Dose Admin Sodium Chloride 1,000 mls @ 30 mls/hr 09/21/22 09:45 09/21/22 10:00 Sodium Chloride 0.9% IV 09/22/22 09:44 30 mls/hr .Q24H SANCHO Administration PFSH Anesthesia Medical History Acromioclavicular joint arthritis Chronic constipation Hydronephrosis of right kidney Psychiatric care Sleep apnea with use of continuous positive airway pressure (CPAP) Subacromial impingement of left shoulder Urgency incontinence Urolithiasis Surgical History H/O esophagogastroduodenoscopy (06/24/21) gastric erosions H/O tubal ligation History of appendectomy Hx of cholecystectomy Status post colonoscopy (08/12/21) Status post laser lithotripsy of ureteral calculus Family History Brother Diabetes Father , unknown No problems noted. Other Cancer Social History Smoking and tobacco status: never smoked Second hand smoke exposure: Yes Smoking risk assessment/counseling performed?: No Alcohol intake: never Desire information about alcohol rehabilitation?: No Counseling given: No Substance/Drug Use: never Desire information about substance/drug rehabilitation?: No Counseling given: No Adopted: No Caregiver/support person: No Lives independently: No Marital status: Current occupational status: employed Current gender identity: Female Data Anesthesia Cardiac Studies: No Data to Display
[2022-09-21] MEDS: hyDRALAzine 20 mg/mL INJ 1 mL (13:33)
--- NOTE | 2022-09-21 17:05 | ANES.PROC ---
Anesthesia Procedures Procedure/Date: 09/21/22 Nerve Block ^: Nerve Block 1: Main Anesthesia: general anesthesia Time Out Performed: Yes Consent: requested by attending/covering physician, from patient, risks and benefits reviewed and patient agrees to proceed Nerve block location: interscalene (Left) Anesthesia monitors applied: pulse oximetry, EKG, BP cuff and oxygen Nerve block position: semi sitting Anesthetic Used: ropivicaine 0.5% Amount of anesthesia used (mL): 30 Ultrasound used to: recognize landmarks and visualize and ID brachial plexus Nerve Stimulator Used?: No Interscalene/Femoral BLK: 2 stimuplex 22 g needle used for position and inplane approach Injection: neg aspiration of heme Patient Tolerated Procedure: well Complications: none
--- NOTE | 2022-09-21 17:09 | ANE.PACU2 ---
Inpatient post-anesthesia follow up: Airway intact: Yes Vital signs: Temperature 97.4 F Pulse Rate 73 Respiratory Rate 17 Blood Pressure 133/81 Pulse Oximetry 93 Oxygen Delivery Me thod Room Air Oxygen Flow Rate 6 Fraction of Inspir ed Oxygen Hydration adequate: Yes Nausea and vomiting: No Pain level: 1 Mental status: Baseline
== END 2022-09-21 14:55 | disposition home or self-care (01) ==
PROVIDERS: PCP Family Medicine; Visit Provider Student in an Organized Health Care Education/Training Program
PROC: (CPT 29805; principal; 2022-09-21 10:50)
PROC: (CPT 23405; 2022-09-21 10:50)
PROC: (CPT 29826; 2022-09-21 10:50)
PROC: 0RSH0ZZ Reposition Left Acromioclavicular Joint, Open Approach (ICD-10-PCS; CPT 23120; 2022-09-21 10:50)
DX: S46.212A Strain of muscle, fascia and tendon of other parts of biceps, left arm, initial encounter (principal); M75.112 Incomplete rotator cuff tear or rupture of left shoulder, not specified as traumatic; M75.42 Impingement syndrome of left shoulder; M19.012 Primary osteoarthritis, left shoulder; M94.212 Chondromalacia, left shoulder; M75.82 Other shoulder lesions, left shoulder; J45.909 Unspecified asthma, uncomplicated; K21.9 Gastro-esophageal reflux disease without esophagitis; E78.5 Hyperlipidemia, unspecified; R56.9 Unspecified convulsions; G47.30 Sleep apnea, unspecified; Z77.22 Contact with and (suspected) exposure to environmental tobacco smoke (acute) (chronic); X58.XXXA Exposure to other specified factors, initial encounter
CPT/HCPCS: 23120; 29827; 29828; J0131; J0360; J0690; J1100; J1170; J1885; J2405; J2704; J2795; J3490; J7030

== ENCOUNTER → 2022-10-07 10:11 | Outpatient (BNVA) | payer MEDICAID, SELFPAY | PROVIDERS: PCP Family Medicine; Visit Provider Student in an Organized Health Care Education/Training Program | DX: Z98.890 Other specified postprocedural states (principal) | CPT/HCPCS: 99024 ==

== ENCOUNTER → 2022-11-23 09:37 | Outpatient (BNVA) | payer MEDICAID, SELFPAY | PROVIDERS: PCP Family Medicine; Visit Provider Anesthesiology Pain Medicine | DX: M51.36 Other intervertebral disc degeneration, lumbar region; M47.816 Spondylosis without myelopathy or radiculopathy, lumbar region | CPT/HCPCS: 99214 ==

== ENCOUNTER → 2022-12-09 13:12 | Outpatient (BNVA) | payer MEDICAID, SELFPAY | PROVIDERS: PCP Family Medicine; Visit Provider Anesthesiology Pain Medicine | DX: M54.16 Radiculopathy, lumbar region (principal) | CPT/HCPCS: 64483; 64484; J1100; J3490 ==

== ENCOUNTER 2022-12-13 15:19 | Emergency (ER) | payer MEDICAID, SELFPAY ==
[2022-12-13 15:29] VITALS: BP 141/87; PULSE 78; RESP 16; TEMP 36.6; O2SAT 98; BMI 29.2
[2022-12-13 17:03] VITALS: BP 156/105; PULSE 70; RESP 20; O2SAT 98
--- NOTE | 2022-12-13 17:27 | XRR_ITS ---
PROCEDURE INFORMATION: Exam: XR Chest Exam date and time: 12/13/2022 5:30 PM Age: 57 years old Clinical indication: Dyspnea TECHNIQUE: Imaging protocol: Radiologic exam of the chest. Views: 1 view. COMPARISON: CR XR chest 1V portable [id number] 10/05/2021 7:28 PM FINDINGS: Lungs: Unremarkable. No consolidation. Pleural spaces: Unremarkable. No pleural effusion. No pneumothorax. Heart/Mediastinum: Unremarkable. No cardiomegaly. Diaphragm: There is stable elevation the right hemidiaphragm which could obscure pathology in the right base. Bones/joints: Unremarkable. XR/XR chest 1V portable [id number] IMPRESSION: No acute findings.
--- NOTE | 2022-12-13 17:27 | ECG_ITS ---
[facility] Test Date: 2022-12-13 Pat Name: Gold Johnson Department: Room: Gender: Female [employer] Sales Representative: : 1965 Requested By: Aubrey Barrios Order Number: [id number] Lou MD: Jann Wheat M.D. Measurements Intervals [place] Rate: 71 P: 17 MA: 171 QRS: 6 QRSD: 89 T: 47 QT: 385 QTc: 420 Interpretive Statements SINUS RHYTHM Compared to ECG 07/05/2021 13:02:05 No significant changes Electronically Signed On 12-14-2022 9:47:55 CDT by Jann Wheat M.D. [email or web address]/store/[id number] f
[2022-12-13 17:36] LABS: Add Urine Microscopic? NO; Charge for UA Resulting for Rev
--- NOTE | 2022-12-13 17:45 | W.ED.GENADLT ---
HPI - General Adult General: Chief complaint: General Medical Stated complaint: chest pain, high bp, Dr Martin sent Time Seen by Provider: 12/13/22 17:14 History of Present Illness: Patient reports to the ER with complaints of intermittent dizziness and feeling weird and having episodes of substernal chest pain hypertension and just not feeling quite right. These episodes happen daily for the last week or so. When patient took her blood sugar it was in the 90s, several other times patient ate and this did not resolve the symptoms. When patient took her blood pressure 1 time it was 120/100 and her client told her that this is the problem and those numbers are too close together. Patient stated she tried to get into her family practice doctor who told her to come to the ER room emergently. Review of Systems General: Reports: 10 or more systems reviewed and unremarkable except in HPI and below PFSH ED PFSH: Medical History Acromioclavicular joint arthritis Chronic constipation Hydronephrosis of right kidney Psychiatric care Sleep apnea with use of continuous positive airway pressure (CPAP) Subacromial impingement of left shoulder Urgency incontinence Urolithiasis Surgical History H/O esophagogastroduodenoscopy (06/24/21) gastric erosions H/O tubal ligation History of appendectomy Hx of cholecystectomy Status post colonoscopy (08/12/21) Status post laser lithotripsy of ureteral calculus Family History Brother Diabetes Father , unknown No problems noted. Other Cancer Social History Smoking and tobacco status: never smoked Second hand smoke exposure: Yes Smoking risk assessment/counseling performed?: No Alcohol intake: never Desire information about alcohol rehabilitation?: No Counseling given: No Substance/Drug Use: never Desire information about substance/drug rehabilitation?: No Counseling given: No Adopted: No Caregiver/support person: No Lives independently: No Marital status: Current occupational status: employed Current gender identity: Female Physical Exam Const: COMMON NORMALS: no acute distress, average body habitus, patient oriented x3, no limitations, healthy appearing, alert and well nourished HENMT: COMMON NORMALS: normocephalic, atraumatic, hearing grossly normal bilaterally, external ears normal, Normal external nose present and moist oral mucous membranes HEAD & SCALP: normocephalic and atraumatic NOSE: Normal external nose present EXTERNAL EAR: Yes external ears normal Eye: COMMON NORMALS: Equal, round and reactive pupils present, EOMs intact bilaterally, conjunctivae normal and no scleral icterus CONJUNCTIVA: Yes conjunctivae normal PUPIL: Yes Equal, round and reactive pupils present Neck/C-Spine: COMMON NORMALS: full ROM, no lymphadenopathy, supple, no meningeal signs, no JVD and Thyroid normal THYROID: Thyroid normal Lymph: LYMPHATIC: no lymphadenopathy noted Chest: COMMONS NORMALS: normal inspection of the chest; negative for normal palpation of entire chest wall (Tenderness to palpation over chest wall anterior.) Resp: COMMON NORMALS: normal respiratory effort, No retractions, No use of accessory muscles and clear to auscultation bilaterally AUSCULTATION: clear to auscultation bilaterally Cardio: COMMON NORMALS: no JVD, regular rate, regular rhythm, S1 normal heart sound present, S2 normal heart sound present, No gallops present (Cardio), No clicks present (Cardio), No murmurs present (Cardio) and No rub (Cardio) RATE: regular rate RHYTHM: regular rhythm HEART SOUNDS: S1 normal heart sound present and S2 normal heart sound present GI: COMMON NORMALS: Normal to inspection, nondistended, normoactive bowel sounds present, Soft to palpation, non-tender, No hepatosplenomegaly present and no masses PALPATION: Yes Soft to palpation and Yes No hepatosplenomegaly present : COMMON NORMALS: Yes no CVA tenderness BLADDER/KIDNEY EXAM: Yes no CVA tenderness Back/Pelvis: COMMON NORMALS: no CVA tenderness Neuro: COMMON NORMALS: patient oriented x3 SENSORIUM/ORIENTATION: Yes alert MENINGEAL SIGNS: Yes no meningeal signs Course Vital Signs: Vital signs: Vital Signs Temperature 97.8 F 12/13/22 15:29 Pulse Rate 72 12/13/22 18:00 Respiratory Rate 27 H 12/13/22 18:00 Blood Pressure 113/58 12/13/22 18:00 Pulse Oximetry 98 12/13/22 18:00 Oxygen Delivery Me thod Room Air 12/13/22 17:03 [facility] - General Adult Medical Decision Making Patient presents to the ER with complaints of hypertension, substernal chest pain intermittent now resolved, and dizziness. Patient was worked up and normal fashion with physical exam as well lab work including EKG and chest x-ray. All of which were benign. Patient's vital signs are stable patient had no symptoms during her stay. Patient be discharged back home to follow-up with her PCP for further evaluation and testing. Differential Diagnosis Hypertension, hypoglycemia, intermittent chest pain, chest wall pain Medical Records I reviewed the patient's medical records. Lab Data I reviewed the patient's lab results. 12/13/22 17:20 12/13/22 17:20 Radiology Impressions Chest X-Ray 12/13/22 17:27 IMPRESSION: No acute findings. Laboratory Results WBC 8.52 10^3/uL (3.29-11.43) 12/13/22 17:20 RBC 4.71 10^6/uL (3.85-5.65) 12/13/22 17:20 Hgb 13.90 g/dL (11.27-16.99) 12/13/22 17:20 Hct 42.9 % (36-47) 12/13/22 17:20 MCV 91.1 fl (85-98) 12/13/22 17:20 MCH 29.5 pg (27-33) 12/13/22 17:20 MCHC 32.4 g/dL (30-55) 12/13/22 17:20 RDW 12.3 % (12.1-15.1) 12/13/22 17:20 Plt Count 326 10^3/cmm (157-399) 12/13/22 17:20 MPV 9.7 fL (7.4-10.4) 12/13/22 17:20 Neut % (Auto) 65.8 % 12/13/22 17:20 Lymph % (Auto) 24.5 % 12/13/22 17:20 [place] % (Auto) 7.6 % 12/13/22 17:20 Eos % (Auto) 1.5 % 12/13/22 17:20 Baso % (Auto) 0.2 % 12/13/22 17:20 Neut # (Auto) 5.60 10^3/uL (1.8-7.7) 12/13/22 17:20 Lymph # (Auto) 2.1 10^3/uL (0.8-4.8) 12/13/22 17:20 [place] # (Auto) 0.7 10^3/uL (0.2-0.9) 12/13/22 17:20 Eos # (Auto) 0.1 10^3/uL (0.0-0.8) 12/13/22 17:20 Baso # (Auto) 0.0 10^3/uL (0.0-0.1) 12/13/22 17:20 Nucleated RBC % (auto) 0 % 12/13/22 17:20 Nucleated RBCs # 0.0 /100WBC 12/13/22 17:20 Sodium 144 mmol/L (136-145) 12/13/22 17:20 Potassium 3.7 mmol/L (3.5-5.1) 12/13/22 17:20 Chloride 107 mmol/L (98-107) 12/13/22 17:20 Carbon Dioxide 26 mmol/L (22-29) 12/13/22 17:20 Anion Gap 14.7 (5-19) 12/13/22 17:20 BUN 18 mg/dL (6-20) 12/13/22 17:20 Creatinine 0.9 mg/dL (0.5-0.9) 12/13/22 17:20 GFR Calculation 64.8 mL/min (90-130) L 12/13/22 17:20 Glucose 87 mg/dL (65-115) 12/13/22 17:20 Calculated Osmolality 299 mOsm/kg (285-295) H 12/13/22 17:20 Calcium 9.0 mg/dL (8.5-10.5) 12/13/22 17:20 Total Bilirubin 0.2 mg/dL (0.15-1.2) 12/13/22 17:20 AST 23 U/L (0-32) 12/13/22 17:20 ALT 23 U/L (0-33) 12/13/22 17:20 Alkaline Phosphatase 134 U/L (35-105) H 12/13/22 17:20 Total Protein 7.2 g/dL (6.6-8.7) 12/13/22 17:20 Albumin 4.7 g/dL (3.5-5.2) 12/13/22 17:20 Globulin 2.5 g/dL (1.3-4.6) 12/13/22 17:20 Urine Color Yellow (Yellow) 12/13/22 17:20 Urine Appearance Clear (CLEAR) 12/13/22 17:20 Urine pH 5 (5-7) 12/13/22 17:20 Ur Specific [place] 1.025 (1.005-1.030) 12/13/22 17:20 Urine Protein Neg (Negative) 12/13/22 17:20 Urine Glucose (UA) Norm (Normal) 12/13/22 17:20 Urine Ketones Negative (Negative) 12/13/22 17:20 Urine Blood Neg (Negative) 12/13/22 17:20 Urine Nitrate Negative (Negative) 12/13/22 17:20 Urine Bilirubin Neg (Negative) 12/13/22 17:20 Urine Urobilinogen 1 mg/dL (Negative) H 12/13/22 17:20 Ur Leukocyte Esterase Negative (Negative) 12/13/22 17:20 Discharge Plan Discharge Patient Disposition: Home Clinical Impression: Atypical chest pain Hypertension Qualifiers: Hypertension type: unspecified Qualified Code(s): I10 - Essential (primary) hypertension Condition: Stable Prescriptions: No Action fluticasone propionate [Flonase Allergy Relief] 50 mcg/actuation spray,suspension 1 spray INTRANASAL BID PRN (Reason: Allergy Symptoms) zonisamide [Zonegran] 100 mg capsule 400 mg PO BEDTIME clopidogrel [Plavix] 75 mg tablet 75 mg PO QAM solifenacin [Vesicare] 10 mg tablet 10 mg PO DAILY Qty: 30 12RF cyclobenzaprine 10 mg tablet 10 mg PO TID PRN (Reason: muscle spasm) Qty: 60 0RF oxybutynin chloride 15 mg tablet extended release 24hr 15 mg PO DAILY Qty: 30 12RF (DME) Night Splint See Rx Instructions .Route .MEDSUPPLY Qty: 1 0RF Rx Instructions: As directed leflunomide [Arava] 20 mg tablet 20 mg PO QAM hydroxyzine HCl 50 mg tablet 50 mg PO QID PRN (Reason: insomnia/anxiety) Qty: 120 2RF trazodone 100 mg tablet 300 mg PO BEDTIME Qty: 90 2RF fluoxetine 40 mg capsule 80 mg PO QAM Qty: 60 2RF hydrocodone-acetaminophen 5-325 mg tablet 1 tab PO Q6H PRN (Reason: pain) 7 Days Qty: 28 0RF ondansetron 4 mg tablet,disintegrating 4 mg PO Q8H PRN (Reason: nausea and vomiting) Qty: 12 0RF atorvastatin 20 mg tablet 20 mg PO BEDTIME pantoprazole 20 mg tablet,delayed release (DR/EC) 20 mg PO BID albuterol sulfate [ProAir HFA] 90 mcg/actuation HFA aerosol inhaler 2 puff INHALATION BID PRN (Reason: Shortness Of Breath) Discharge Orders: Discharge ED (Routine); Ordered 12/13/22 Ordered By: Aubrey Barrios Referrals: Cristina Martin DO [Primary Care Provider] - Patient Instructions: Hypertension, Chest Pain (ED) Coding Level of Care Code ED Project Coach for Kwasi Arzola
[2022-12-13 17:51] LABS: Basophils % 0.2 %; Eosinophils # 0.1 10^3/uL (0.0-0.8); Eosinophils % 1.5 %; Hematocrit 42.9 % (36-47); Lymphocytes # 2.1 10^3/uL (0.8-4.8); Lymphocytes % 24.5 %; Mean Corpuscular HGB Conc 32.4 g/dL (30-55); Mean Corpuscular Hemoglobin 29.5 pg (27-33); Mean Corpuscular Volume 91.1 fl (85-98); Mean Platelet Volume 9.7 fL (7.4-10.4); Monocytes # 0.7 10^3/uL (0.2-0.9); Monocytes % 7.6 %; Neutrophils % 65.8 %; Nucleated Red Blood Cells % 0 %; Platelet Count 326 10^3/cmm (157-399); Red Blood Count 4.71 10^6/uL (3.85-5.65); Red Cell Distribution Width 12.3 % (12.1-15.1); White Blood Count 8.52 10^3/uL (3.29-11.43)
[2022-12-13 17:53] LABS: Bilirubin Urine Neg (Negative); Blood Urine Neg (Negative); Glucose Urine UA Norm (Normal); Ketones Urine Negative (Negative); Leukocyte Esterase Urine Negative (Negative); Nitrate Urine Negative (Negative); Protein Urine Neg (Negative); Specific Gravity, Urine 1.025 (1.005-1.030); Urine Appearance Clear (CLEAR); Urine Color Yellow (Yellow); Urobilinogen Urine 1 mg/dL (Negative); pH Urine 5 (5-7)
[2022-12-13 18:00] VITALS: BP 113/58; PULSE 72; RESP 27; O2SAT 98
[2022-12-13 18:02] LABS: Alanine Aminotransferase 23 U/L (0-33); Albumin Level 4.7 g/dL (3.5-5.2); Alkaline Phosphatase 134 U/L (35-105); Anion Gap 14.7 (5-19); Aspartate Amino Transferase 23 U/L (0-32); Blood Urea Nitrogen 18 mg/dL (6-20); Carbon Dioxide 26 mmol/L (22-29); Chloride 107 mmol/L (98-107); Globulin 2.5 g/dL (1.3-4.6); Glomerular Filtration Rate 64.8 mL/min (90-130); Glucose 87 mg/dL (65-115); Osmolality Calculated 299 mOsm/kg (285-295); Potassium 3.7 mmol/L (3.5-5.1); Sodium 144 mmol/L (136-145); Total Bilirubin 0.2 mg/dL (0.15-1.2); Total Protein 7.2 g/dL (6.6-8.7)
[2022-12-13 19:02] VITALS: BP 123/87; PULSE 72; RESP 16; O2SAT 99
== END 2022-12-13 19:04 | disposition home or self-care (01) ==
PROVIDERS: Emergency Provider Emergency Medicine; PCP Family Medicine
DX: R07.89 Other chest pain (principal); I10 Essential (primary) hypertension; Z79.02 Long term (current) use of antithrombotics/antiplatelets; Z77.22 Contact with and (suspected) exposure to environmental tobacco smoke (acute) (chronic)
CPT/HCPCS: 36415; 71045; 80053; 81003; 85025; 93005; 99285

== ENCOUNTER → 2022-12-27 13:29 | Outpatient (BNVA) | payer MEDICAID, SELFPAY | PROVIDERS: PCP Family Medicine; Visit Provider Anesthesiology Pain Medicine | DX: M54.16 Radiculopathy, lumbar region (principal) | CPT/HCPCS: 64483; 64484; J1100; J3490 ==

== ENCOUNTER → 2022-12-28 10:52 | Outpatient (BNVA) | payer MEDICAID, SELFPAY | PROVIDERS: PCP Family Medicine; Visit Provider Student in an Organized Health Care Education/Training Program | DX: Z98.890 Other specified postprocedural states (principal) | CPT/HCPCS: 99213 ==